=== PATIENT | male | born 1965 | race Caucasian/White ===

== ENCOUNTER 2018-06-27 19:06 | Inpatient (IN) | payer OTHER ==
[2018-06-27 21:12] VITALS: BMI 30.2
--- NOTE | 2018-06-27 23:12 | HP ---
CIWA Score Nausea/Vomitin-No Nausea/No Vomiting Muscle Tremors: 4-Moderate,w/Arms Extend Anxiety: 4-Mod. Anxious/Guarded Agitation: 1-Slight > Activity Paroxysmal Sweats: 3 (Increased facial moisture) Orientation: 1-Uncertain about Date Tacttile Disturbances: 0-None Auditory Disturbances: 0-None Visual Disturbances: 0-None Headache: 0-None Present CIWA-Ar Total Score: 13 - Admission Criteria OASAS Guidelines: Admission for Medically Managed Detox: Requires at least one of the followin. CIWA greater than 12 2. Seizures within the past 24 hours 3. Delirium tremens within the past 24 hours 4. Hallucinations within the past 24 hours 5. Acute intervention needed for co occurring medical disorder 6. Acute intervention needed for co occurring psychiatric disorder 7. Severe withdrawal that cannot be handled at a lower level of care (continued vomiting, continued diarrhea, abnormal vital signs) requiring intravenous medication and/or fluids 8. Patient presents the following: CIWA greater than 12 Admission Criteria Met: Admission criteria met Admission ROS [facility] Chief Complaint: Alcohol and Xanax withdrawal. Allergies/Adverse Reactions: Allergies Allergy/AdvReac Type Severity Reaction Status Date / Time No Known Allergies Allergy Verified 06/27/18 20:57 History of Present Illness: Hx poly-substance use. Here for alcohol and Xanax detox w/ co-morbid use of cocaine. Xanax use began at age 42. Was prescribed Klonopin and began taking illicit Xanax. Current Xanax consistently x 2 months. Alcohol use began at age 17. Current use since age 34. Heroin use began at age 34. On [facility]. Has been on [facility] x 1 year. Current Methadone dose is 75 mg. States relapses w heroin - 2 bags daily IV. States does not share needles or works. Nicotine use began at age 17. Hx: 2 overdoses. Last time 6 months ago. States was given Narcan. Does not have a Narcan Kit at home. Denies hx seizures or blackouts. PMHx: Hepatitis C - on medication treatment; Asthma - last exacerbation 1 year ago MHHx: Provider of Klonopin discharged him because urine positive for Xanax and cocaine. States feeling very anxious now. Depression Denies current thoughts of harming self or others. x Patient Name: Ty Garcia Date: 1965 Address: [address] [place] [address] Sex: Male Rx Written Rx Dispensed Drug Quantity Days Supply Prescriber Name 05/05/2018 05/05/2018 clonazepam 0.5 mg tablet 30 30 Reed Cedeno M 03/01/2018 03/01/2018 clonazepam 0.5 mg tablet 30 30 Reed Cedeno, Jose 01/20/2018 01/20/2018 clonazepam 0.5 mg tablet 30 30 Reed Cedeno, Jose 12/21/2017 12/21/2017 clonazepam 0.5 mg tablet 30 30 Tian Chantell SCOTTC 11/30/2017 11/30/2017 acetaminophen-cod #3 tablet 20 4 Rey Manzano 11/19/2017 11/19/2017 clonazepam 0.5 mg tablet 30 30 Tian Chantell SCOTTC 09/29/2017 09/29/2017 clonazepam 0.5 mg tablet 30 30 Tian Chantell LARES-C 08/31/2017 08/31/2017 clonazepam 1 mg tablet 30 30 Tian Chantell LARES-C 07/21/2017 07/21/2017 clonazepam 1 mg tablet 45 30 Delfina Portillo Exam Limitations: No Limitations - Ebola screening Have you traveled outside of the country in the last 21 days: No (N) Have you had contact with anyone from an Ebola affected area: No Have you been sick,other than usual withdrawal symptoms: No (Denies recent measles exposure) Do you have a fever: No - Review of Systems Constitutional: Diaphoresis, Changes in sleep (Difficulty falling asleep.) EENT: reports: Blurred Vision, Dental Problems (Dentures.) Respiratory: reports: Shortness of Breath Cardiac: reports: No Symptoms Reported GI: reports: Indigestion (Occ heart burn - self tx w/ pepto b) : reports: No Symptoms Reported Musculoskeletal: reports: Back Pain (LBP x 10 years. Intermittent, sharp, pins and needles - pain now @ a '7'. Increases w/ standing. Improves w/ laying on back.) Integumentary: reports: Lesions (r/t injection drug use) Neuro: reports: Tremors Endocrine: reports: No Symptoms Reported Hematology: reports: No Symptoms Reported Psychiatric: reports: Judgement Intact, Agitated, Anxious, Depressed (Denies curent thoughts of harming self or others.) Patient History - PPD History Previous Implant?: Yes Documented Results: Negative w/o proof Implanted On Prior R Admission?: Yes PPD to be Administered?: Yes - Smoking Cessation Smoking history: Current every day smoker Have you smoked in the past 12 months: Yes Aproximately how many cigarettes per day: 20 Hx Chewing Tobacco Use: No Initiated information on smoking cessation: Yes 'Breaking Loose' booklet given: 06/27/18 - Substance & Tx. History Hx Alcohol Use: Yes Hx Substance Use: Yes Substance Use Type: Alcohol, Cocaine, Heroin, Tranquilizers Hx Substance Use Treatment: Yes (detox, rehab, Currently on a MMTP) - Substances abused Heroin Substance route: Injection Frequency: Daily Amount used: $20 Age of first use: 34 Date of last use: 06/27/18 Alcohol Substance route: Oral Frequency: Daily Amount used: 6 CANS OF BEER (32 OUNCES) Age of first use: 17 Date of last use: 06/27/18 Cocaine Substance route: Injection Frequency: Daily Amount used: $100 Age of first use: 23 Date of last use: 06/27/18 Alprazolam (Xanax) Substance route: Oral Frequency: Daily Amount used: 3 STICKS (2mg each ) Age of first use: 34 Date of last use: 06/27/18 Admission Physical Exam BHS - Vital Signs Vital Signs: Vital Signs - 24 hr 06/27/18 21:03 Temperature 98.6 F Pulse Rate 68 Respiratory 20 Rate Blood Pressure 116/56 L - Physical General Appearance: Yes: Nourished, Mild Distress, Tremorous, Sweating, Anxious HEENTM: Yes: EOMI, Normocephalic, Normal Voice, MAYRA (Pupils = 2m) Respiratory: Yes: Lungs Clear, Normal Breath Sounds, No Respiratory Distress Neck: Yes: No masses,lesions,Nodules, Supple Breast: Yes: Breast Exam Deferred Cardiology: Yes: Regular Rhythm, Regular Rate, S1, S2 Abdominal: Yes: Non Tender, Soft, Increased Bowel Sounds Genitourinary: Yes: Within Normal Limits Back: Yes: Normal Inspection Musculoskeletal: Yes: full range of Motion, Gait Steady Extremities: Yes: Normal Capillary Refill, Tremors (gross tremors upon arm extension) Neurological: Yes: interim controller II-XII NML intact, Alert, Motor Strength 5/5, Depressed Affect (Denies curent thoughts of harming self or others.) Integumentary: Yes: Normal Color, Dry, Warm, Track Briones (Old and new trakc briones on arms.), Other (Superficial abrasion (L) arem area - approc) Lymphatic: Yes: Within Normal Limits - Diagnostic (1) Alcohol dependence with uncomplicated withdrawal Current Visit: Yes Status: Acute (2) Sedative, hypnotic or anxiolytic dependence with withdrawal, uncomplicated Current Visit: Yes Status: Acute (3) Cocaine dependence, uncomplicated Current Visit: Yes Status: Chronic (4) Opioid use disorder, severe, on maintenance therapy Current Visit: Yes Status: Chronic Comment: Continues to use heroin while on MMTP (5) Hepatitis C Current Visit: Yes Status: Acute Qualifiers: Viral hepatitis chronicity: chronic Hepatic coma status: without hepatic coma Qualified Code(s): B18.2 - Chronic viral hepatitis C Comment: On MAVYRET treatment (6) Abrasion of skin Current Visit: Yes Status: Chronic Cleared for Admission [facility] - Detox or Rehab [facility] Level of Care: Medically Managed Detox Regimen/Protocol: Librium Claeared for Rehab Admission: No Inpatient Rehab Admission - Rehab Decision to Admit Inpatient rehab admission?: No
[2018-06-27] MEDS ORDERED: guaiFENesin 200 MG/10 ML 10 ML UNIT-DOSE CUPS PO PRN (23:54)
[2018-06-27] MEDS ORDERED: METHOCARBAMOL 500 MG TABLET PO PRN (23:54)
[2018-06-27] MEDS ORDERED: PROCHLORPERAZINE MALEATE 5 MG TABLET PO PRN (23:54)
[2018-06-27] MEDS ORDERED: BISMUTH SUBSALICYLATE 524 MG/30 ML UD PO PRN (23:54)
[2018-06-27] MEDS ORDERED: MAGNESIUM CITRATE 300 ML BOTTLE PO PRN (23:54)
[2018-06-27] MEDS ORDERED: hydrOXYzine PAMOATE 25 MG CAPSULE (FP) PO PRN (23:54)
[2018-06-27] MEDS ORDERED: NICOTINE POLACRILEX 2 MG GUM BUC PRN (23:54)
[2018-06-27] MEDS ORDERED: IBUPROFEN 400 MG TABLET (FP) PO PRN (23:54)
[2018-06-27] MEDS ORDERED: P-EPHED 60MG/TRIPROLIDI 2.5MG TABLET PO PRN (23:54)
[2018-06-27] MEDS ORDERED: MENTHOL/PHENOL 1 EACH UD MM PRN (23:54)
[2018-06-27] MEDS ORDERED: ACETAMINOPHEN 325 MG TABLET (FP) PO PRN ×2 (23:54)
[2018-06-27] MEDS ORDERED: MAGNESIUM HYDROX 2400MG/30ML ORAL SUSPENSION 30 ML CUP PO PRN (23:54)
[2018-06-27] MEDS ORDERED: MAG HYDROX/AL HYDROX/SIMETH 30 ML UNIT-DOSE CUP PO PRN (23:54)
[2018-06-28] MEDS ORDERED: ALBUTEROL SO4 0.083% IH SOL 2.5 MG/3 ML VIAL.NEB. NEB PRN (00:04)
[2018-06-28] MEDS ORDERED: chlordiazePOXIDE HCL 25 MG CAPSULE PO PRN (00:45)
[2018-06-28] MEDS ORDERED: chlordiazePOXIDE HCL 25 MG CAPSULE PO ONE (00:45)
[2018-06-28] MEDS: MELATONIN 5 MG TABLETS PO PRN (01:03)
[2018-06-28] MEDS: chlordiazePOXIDE HCL 25 MG CAPSULE PO SCH ×4 (06:05→22:26)
[2018-06-28] MEDS ORDERED: METHADONE HCL 10 MG TABLET PO SCH (07:15)
[2018-06-28] MEDS ORDERED: METHADONE HCL 10 MG TABLET ONE (08:26)
[2018-06-28] MEDS ORDERED: METHADONE HCL 40 MG DISPERSABLE TABLET ONE (08:27)
[2018-06-28] MEDS ORDERED: METHADONE HCL 5 MG TABLET ONE (08:27)
[2018-06-28] MEDS: METHADONE 40 MG, METHADONE 30 MG, METHADONE 5 MG PO SCH (08:30)
--- NOTE | 2018-06-28 09:33 | CONSULT ---
[facility] Psychiatric Consult - Data Date of interview: 06/28/18 Admission source: [facility] Identifying data: Patient is a 53 year old single male, father of one, unemployed, domiciled, and is supported by disability. This is patient's first admission to detox at [facility]. Patient admitted to for alcohol, sedative, opioid, and cocaine dependence. Substance Abuse History: Smoking Cessation. Smoking history: Current every day smoker. Have you smoked in the past 12 months: Yes. Aproximately how many cigarettes per day: 20. Hx Chewing Tobacco Use: No. Initiated information on smoking cessation: Yes. 'Breaking Loose' booklet given: 06/27/18. - Substance & Tx. History. Hx Alcohol Use: Yes. Hx Substance Use: Yes. Substance Use Type : Alcohol, Cocaine, Heroin, Tranquilizers. Hx Substance Use Treatment: Yes ( detox, rehab, Currently on a MMTP). - Substances abused. Heroin. Substance route: Injection. Frequency: Daily. Amount used: $20. Age of first use: 34. Date of last use: 06/27/18. Alcohol. Substance route: Oral. Frequency: Daily. Amount used: 6 CANS OF BEER (32 OUNCES). Age of first use: 17. Date of last use: 06/27/18. Cocaine. Substance route: Injection. Frequency: Daily. Amount used: $100. Age of first use: 23. Date of last use: 06/27/18. Alprazolam (Xanax). Substance route: Oral. Frequency: Daily. Amount used: 3 STICKS (2mg each ). Age of first use: 34. Date of last use: 08/10 Medical History: Significant for Hep C and Asthma Psychiatric History: Patient denies h/o psychiatric hospitalization, outpatient care, and suicide attempt. Mr. Garcia reports seeing an outpatient psychiatrist at the [facility] on [address] [place] [address] and is prescribed trazodone and other psychotropic medication he is unable to call. He reports being off his medications for approximately 1-2 months. At present, Mr. Garcia presents as fatigue as he reports difficulty sleeping last night. Physical/Sexual Abuse/Trauma History: denies. Mental Status Exam - Mental Status Exam Alert and Oriented to: Time, Place, Person Cognitive Function: Good Patient Appearance: Well Groomed Mood: Withdrawn Affect: Mood Congruent Patient Behavior: Fatigued Speech Pattern: Delayed Voice Loudness: Moderately Soft/Quiet Thought Process: Goal Oriented Thought Disorder: Not Present Hallucinations: Denies Suicidal Ideation: Denies Homicidal Ideation: Denies Insight/Judgement: Poor Sleep: Poorly Appetite: Fair Muscle strength/Tone: Normal Gait/Station: Normal Psychiatric Findings - Problem List ([place] 1, 2,3) (1) Substance-induced sleep disorder Current Visit: Yes Status: Acute (2) Alcohol dependence with uncomplicated withdrawal Current Visit: Yes Status: Acute (3) Sedative, hypnotic or anxiolytic dependence with withdrawal, uncomplicated Current Visit: Yes Status: Acute (4) Cocaine dependence, uncomplicated Current Visit: Yes Status: Chronic (5) Opioid use disorder, severe, on maintenance therapy Current Visit: Yes Status: Chronic Comment: Continues to use heroin while on MMTP - Initial Treatment Plan Initial Treatment Plan: Psychoeducation provided. Detoxification in progress. Will order Trazodone 50mg HS. Benefits and side effects discussed. Patient made aware of the risk of priapism. Verbal consent given.
[2018-06-28 10:16] LABS: HEMATOCRIT 33.9 % (35.4-49); HEMOGLOBIN 11.4 GM/dL (11.7-16.9); MCH 29.2 pg (25.7-33.7); MCHC 33.6 g/dl (32.0-35.9); PLATELET COUNT 174 K/MM3 (134-434); RBC 3.89 M/mm3 (4.00-5.60); RDW 13.9 % (11.9-15.9); WHITE BLOOD COUNT 6.3 K/mm3 (4.0-10.0)
[2018-06-28 10:18] LABS: ALK PHOS 100 U/L (45-117); ANION GAP 4 MMOL/L (8-16); BILIRUBIN,TOTAL 0.2 mg/dL (0.2-1); BLOOD UREA NITROGEN 15 mg/dL (7-18); CALCIUM 8.7 mg/dL (8.5-10.1); CHLORIDE 107 mmol/L (98-107); CO2 28 mmol/L (21-32); CREATININE 0.8 mg/dL (0.55-1.3); GLUCOSE,RANDOM 104 mg/dL (74-106); POTASSIUM 3.7 mmol/L (3.5-5.1); SGOT/AST 22 U/L (15-37); SGPT/ALT 27 U/L (13-61); SODIUM 140 mmol/L (136-145); TOT PROT 6.3 g/dl (6.4-8.2)
[2018-06-28] MEDS: PATIENT'S OWN MEDICATION (NON-FORMULARY) (Glecaprevir/Pibrentasvir [Mavyret 100-40 Mg Tabl PO SCH (10:32)
[2018-06-28] MEDS: PRENATAL VITAMINS W/ FOLIC ACID TABLET (FP) PO SCH (10:34)
[2018-06-28] MEDS: BACITRACIN 0.9 GM PACKET TP SCH ×2 (10:34→22:26)
[2018-06-28] MEDS: NICOTINE 21 MG/24 HOURS TOPICAL PATCH TD SCH (10:34)
--- NOTE | 2018-06-28 10:35 | PN ---
[facility] CIWA - CIWA Score Nausea/Vomitin-Mild Nausea/No Vomiting Muscle Tremors: 3 Anxiety: 3 Agitation: 2 Paroxysmal Sweats: 1-Minimal Palms Moist Orientation: 0-Oriented Tacttile Disturbances: 0-None Auditory Disturbances: 0-None Visual Disturbances: 0-None Headache: 0-None Present CIWA-Ar Total Score: 10 S Progress Note (SOAP) Subjective: doing well with librium protocol tremor tolerate food and fluid well Objective: 06/28/18 10:35 Vital Signs Temperature 97.1 F L 06/28/18 09:15 Pulse Rate 65 06/28/18 09:15 Respiratory Rate 20 06/28/18 09:15 Blood Pressure 105/69 06/28/18 09:15 O2 Sat by Pulse Oximetry (%) Laboratory Last Values Sodium 140 mmol/L (136-145) 06/28/18 07:00 Potassium 3.7 mmol/L (3.5-5.1) 06/28/18 07:00 Chloride 107 mmol/L (98-107) 06/28/18 07:00 Carbon Dioxide 28 mmol/L (21-32) 06/28/18 07:00 Anion Gap 4 MMOL/L (8-16) L 06/28/18 07:00 BUN 15 mg/dL (7-18) 06/28/18 07:00 Creatinine 0.8 mg/dL (0.55-1.3) 06/28/18 07:00 Creat Clearance w eGFR 101.92 (>60) 06/28/18 07:00 Random Glucose 104 mg/dL (74-106) 06/28/18 07:00 Calcium 8.7 mg/dL (8.5-10.1) 06/28/18 07:00 Total Bilirubin 0.2 mg/dL (0.2-1) 06/28/18 07:00 AST 22 U/L (15-37) 06/28/18 07:00 ALT 27 U/L (13-61) 06/28/18 07:00 Alkaline Phosphatase 100 U/L (45-117) 06/28/18 07:00 Total Protein 6.3 g/dl (6.4-8.2) L 06/28/18 07:00 Albumin 3.0 g/dl (3.4-5.0) L 06/28/18 07:00 lab noted Assessment: 06/28/18 10:36 alcohol and benzo withdrawal sx Plan: continue detox
[2018-06-28 20:21] LABS: URINE APPEARANCE CLEAR; URINE BILIRUBIN NEGATIVE (NEGATIVE); URINE COLOR YELLOW; URINE GLUCOSE (UA) NEGATIVE (NEGATIVE); URINE KETONE NEGATIVE (NEGATIVE); URINE LEUK ESTERASE NEGATIVE (NEGATIVE); URINE NITRITE NEGATIVE (NEGATIVE); URINE PROTEIN NEGATIVE (NEGATIVE); URINE UROBILINOGEN 0.2 mg/dL (0.2-1.0)
[2018-06-28] MEDS: THIAMINE HCL 100 MG TABLET (FP) PO SCH (22:26)
[2018-06-28] MEDS: traZODone HCL 50 MG TABLET (FP) PO SCH (22:27)
[2018-06-29] MEDS ORDERED: METHADONE HCL 10 MG TABLET ONE (04:31)
[2018-06-29] MEDS ORDERED: METHADONE HCL 5 MG TABLET ONE (04:32)
[2018-06-29] MEDS ORDERED: METHADONE HCL 40 MG DISPERSABLE TABLET ONE (04:32)
[2018-06-29] MEDS: chlordiazePOXIDE HCL 25 MG CAPSULE PO SCH ×4 (05:23→22:19)
[2018-06-29] MEDS: METHADONE 40 MG, METHADONE 30 MG, METHADONE 5 MG PO SCH (05:23)
[2018-06-29] MEDS: BACITRACIN 0.9 GM PACKET TP SCH ×2 (10:31→22:19)
[2018-06-29] MEDS: PRENATAL VITAMINS W/ FOLIC ACID TABLET (FP) PO SCH (10:32)
[2018-06-29] MEDS: NICOTINE 21 MG/24 HOURS TOPICAL PATCH TD SCH (10:32)
[2018-06-29] MEDS: PATIENT'S OWN MEDICATION (NON-FORMULARY) (Glecaprevir/Pibrentasvir [Mavyret 100-40 Mg Tabl PO SCH (10:32)
[2018-06-29 12:27] LABS: RPR REACTIVE 1:4 (NONREACTIVE)
--- NOTE | 2018-06-29 14:06 | PN ---
S CIWA - CIWA Score Nausea/Vomitin-No Nausea/No Vomiting Muscle Tremors: 2 Anxiety: 2 Agitation: 2 Paroxysmal Sweats: No Perspiration Orientation: 0-Oriented Tacttile Disturbances: 0-None Auditory Disturbances: 0-None Visual Disturbances: 0-None Headache: 0-None Present CIWA-Ar Total Score: 6 BHS Progress Note (SOAP) Subjective: feeling better today ambulating on hallway discuss aftercare with staff Objective: 06/29/18 14:07 Vital Signs Temperature 98.5 F 06/29/18 13:49 Pulse Rate 58 L 06/29/18 13:49 Respiratory Rate 18 06/29/18 13:49 Blood Pressure 102/61 06/29/18 13:49 O2 Sat by Pulse Oximetry (%) Laboratory Last Values WBC 6.3 K/mm3 (4.0-10.0) 06/28/18 07:00 RBC 3.89 M/mm3 (4.00-5.60) L 06/28/18 07:00 Hgb 11.4 GM/dL (11.7-16.9) L 06/28/18 07:00 Hct 33.9 % (35.4-49) L 06/28/18 07:00 MCV 87.0 fl (80-96) 06/28/18 07:00 MCH 29.2 pg (25.7-33.7) 06/28/18 07:00 MCHC 33.6 g/dl (32.0-35.9) 06/28/18 07:00 RDW 13.9 % (11.9-15.9) 06/28/18 07:00 Plt Count 174 K/MM3 (134-434) 06/28/18 07:00 MPV 9.0 fl (7.5-11.1) 06/28/18 07:00 Sodium 140 mmol/L (136-145) 06/28/18 07:00 Potassium 3.7 mmol/L (3.5-5.1) 06/28/18 07:00 Chloride 107 mmol/L (98-107) 06/28/18 07:00 Carbon Dioxide 28 mmol/L (21-32) 06/28/18 07:00 Anion Gap 4 MMOL/L (8-16) L 06/28/18 07:00 BUN 15 mg/dL (7-18) 06/28/18 07:00 Creatinine 0.8 mg/dL (0.55-1.3) 06/28/18 07:00 Creat Clearance w eGFR 101.92 (>60) 06/28/18 07:00 Random Glucose 104 mg/dL (74-106) 06/28/18 07:00 Calcium 8.7 mg/dL (8.5-10.1) 06/28/18 07:00 Total Bilirubin 0.2 mg/dL (0.2-1) 06/28/18 07:00 AST 22 U/L (15-37) 06/28/18 07:00 ALT 27 U/L (13-61) 06/28/18 07:00 Alkaline Phosphatase 100 U/L (45-117) 06/28/18 07:00 Total Protein 6.3 g/dl (6.4-8.2) L 06/28/18 07:00 Albumin 3.0 g/dl (3.4-5.0) L 06/28/18 07:00 Urine Color Yellow 06/28/18 13:15 Urine Appearance Clear 06/28/18 13:15 Urine pH 6.0 (5.0-8.0) 06/28/18 13:15 Ur Specific [place] 1.019 (1.010-1.035) 06/28/18 13:15 Urine Protein Negative (NEGATIVE) 06/28/18 13:15 Urine Glucose (UA) Negative (NEGATIVE) 06/28/18 13:15 Urine Ketones Negative (NEGATIVE) 06/28/18 13:15 Urine Blood Negative (NEGATIVE) 06/28/18 13:15 Urine Nitrite Negative (NEGATIVE) 06/28/18 13:15 Urine Bilirubin Negative (NEGATIVE) 06/28/18 13:15 Urine Urobilinogen 0.2 mg/dL (0.2-1.0) 06/28/18 13:15 Ur Leukocyte Esterase Negative (NEGATIVE) 06/28/18 13:15 RPR Titer Reactive 1:4 (NONREACTIVE) H 06/28/18 07:00 lab noted history of syphilis treated 06/29/18 14:08 Assessment: 06/29/18 14:08 withdrawal sx Plan: continue detox
[2018-06-29 15:07] LABS: TREPONEMA ANTIBODY REACTIVE (NONREACTIVE)
[2018-06-29] MEDS: THIAMINE HCL 100 MG TABLET (FP) PO SCH (22:19)
[2018-06-29] MEDS: traZODone HCL 50 MG TABLET (FP) PO SCH (22:19)
[2018-06-29] MEDS: MELATONIN 5 MG TABLETS PO PRN (22:20)
[2018-06-30] MEDS ORDERED: chlordiazePOXIDE HCL 10 MG CAPSULE PO PRN (05:00)
[2018-06-30] MEDS ORDERED: METHADONE HCL 40 MG DISPERSABLE TABLET ONE (05:29)
[2018-06-30] MEDS ORDERED: METHADONE HCL 5 MG TABLET ONE (05:29)
[2018-06-30] MEDS ORDERED: METHADONE HCL 10 MG TABLET ONE (05:29)
[2018-06-30] MEDS: METHADONE 40 MG, METHADONE 30 MG, METHADONE 5 MG PO SCH (05:30)
[2018-06-30] MEDS: chlordiazePOXIDE HCL 10 MG CAPSULE PO SCH ×2 (05:30→10:52)
--- NOTE | 2018-06-30 08:40 | DS ---
[facility] Detox Discharge Summary Admission Date: 06/27/18 Discharge Date: 06/30/18 - History Present History: Alcohol Dependence, Sedative Dependence Additional Comments: 53 years old male admitted on 06/27/18 for alcohol and benzo withdrawal stabilization feeling better today preferring to begin rehab today aftercare [facility] - Physical Exam Results Vital Signs: Vital Signs Temperature 99 F 06/30/18 06:27 Pulse Rate 63 06/30/18 06:27 Respiratory Rate 16 06/30/18 06:27 Blood Pressure 97/64 06/30/18 06:27 O2 Sat by Pulse Oximetry (%) Pertinent Admission Physical Exam Findings: alcohol and benzo withdrawal sx Laboratory Last Values WBC 6.3 K/mm3 (4.0-10.0) 06/28/18 07:00 RBC 3.89 M/mm3 (4.00-5.60) L 06/28/18 07:00 Hgb 11.4 GM/dL (11.7-16.9) L 06/28/18 07:00 Hct 33.9 % (35.4-49) L 06/28/18 07:00 MCV 87.0 fl (80-96) 06/28/18 07:00 MCH 29.2 pg (25.7-33.7) 06/28/18 07:00 MCHC 33.6 g/dl (32.0-35.9) 06/28/18 07:00 RDW 13.9 % (11.9-15.9) 06/28/18 07:00 Plt Count 174 K/MM3 (134-434) 06/28/18 07:00 MPV 9.0 fl (7.5-11.1) 06/28/18 07:00 Sodium 140 mmol/L (136-145) 06/28/18 07:00 Potassium 3.7 mmol/L (3.5-5.1) 06/28/18 07:00 Chloride 107 mmol/L (98-107) 06/28/18 07:00 Carbon Dioxide 28 mmol/L (21-32) 06/28/18 07:00 Anion Gap 4 MMOL/L (8-16) L 06/28/18 07:00 BUN 15 mg/dL (7-18) 06/28/18 07:00 Creatinine 0.8 mg/dL (0.55-1.3) 06/28/18 07:00 Creat Clearance w eGFR 101.92 (>60) 06/28/18 07:00 Est GFR (CKD-EPI)AfAm No Result Required. 06/28/18 07:00 Est GFR (CKD-EPI)NonAf No Result Required. 06/28/18 07:00 Random Glucose 104 mg/dL (74-106) 06/28/18 07:00 Calcium 8.7 mg/dL (8.5-10.1) 06/28/18 07:00 Total Bilirubin 0.2 mg/dL (0.2-1) 06/28/18 07:00 AST 22 U/L (15-37) 06/28/18 07:00 ALT 27 U/L (13-61) 06/28/18 07:00 Alkaline Phosphatase 100 U/L (45-117) 06/28/18 07:00 Total Protein 6.3 g/dl (6.4-8.2) L 06/28/18 07:00 Albumin 3.0 g/dl (3.4-5.0) L 06/28/18 07:00 Urine Color Yellow 06/28/18 13:15 Urine Appearance Clear 06/28/18 13:15 Urine pH 6.0 (5.0-8.0) 06/28/18 13:15 Ur Specific [place] 1.019 (1.010-1.035) 06/28/18 13:15 Urine Protein Negative (NEGATIVE) 06/28/18 13:15 Urine Glucose (UA) Negative (NEGATIVE) 06/28/18 13:15 Urine Ketones Negative (NEGATIVE) 06/28/18 13:15 Urine Blood Negative (NEGATIVE) 06/28/18 13:15 Urine Nitrite Negative (NEGATIVE) 06/28/18 13:15 Urine Bilirubin Negative (NEGATIVE) 06/28/18 13:15 Urine Urobilinogen 0.2 mg/dL (0.2-1.0) 06/28/18 13:15 Ur Leukocyte Esterase Negative (NEGATIVE) 06/28/18 13:15 RPR Titer Reactive 1:4 (NONREACTIVE) H 06/28/18 07:00 T.pallidum Ab (MHA) Reactive (NONREACTIVE) 06/28/18 07:00 lab noted history of syphilis treated - Treatment Hospital Course: Detox Protocol Followed, Detoxed Safely, Responded well, Discharged Condition Good, Rehab Referral Accepted Patient has Accepted a Rehab Referral to: [facility] - Medication Discharge Medications: Ambulatory Orders Glecaprevir/Pibrentasvir [Mavyret 100-40 mg Tablet] 3 tab PO DAILY 06/27/18 Trazodone HCl 50 mg PO HS 06/27/18 - Diagnosis (1) Alcohol dependence with uncomplicated withdrawal Current Visit: Yes Status: Acute (2) Hepatitis C Current Visit: Yes Status: Chronic Qualifiers: Viral hepatitis chronicity: chronic Hepatic coma status: without hepatic coma Qualified Code(s): B18.2 - Chronic viral hepatitis C (3) Sedative, hypnotic or anxiolytic dependence with withdrawal, uncomplicated Current Visit: Yes Status: Acute (4) Syphilis Current Visit: Yes Status: Chronic - AMA Did Patient Leave Against Medical Advice: No
[2018-06-30] MEDS: BACITRACIN 0.9 GM PACKET TP SCH (10:07)
[2018-06-30] MEDS: PATIENT'S OWN MEDICATION (NON-FORMULARY) (Glecaprevir/Pibrentasvir [Mavyret 100-40 Mg Tabl PO SCH (10:08)
[2018-06-30] MEDS: PRENATAL VITAMINS W/ FOLIC ACID TABLET (FP) PO SCH (10:08)
[2018-06-30] MEDS: NICOTINE 21 MG/24 HOURS TOPICAL PATCH TD SCH (10:08)
[2018-06-30 14:09] VITALS: BP 102/57; PULSE 60; TEMP 98.4
[2018-07-01] MEDS ORDERED: chlordiazePOXIDE HCL 10 MG CAPSULE PO SCH (05:00)
== END 2018-06-30 15:18 | disposition other institution (70) | DRG 897 ==
LOC: YASAS 19:06 → Y3N 23:12
PROVIDERS: ADMIT Surgery; ATTEND Surgery
PROC: HZ2ZZZZ Detoxification Services for Substance Abuse Treatment (ICD-10-PCS; principal; 2018-06-27)
DX: F10.230 Alcohol dependence with withdrawal, uncomplicated (principal); F14.20 Cocaine dependence, uncomplicated; F11.20 Opioid dependence, uncomplicated; F19.282 Other psychoactive substance dependence with psychoactive substance-induced sleep disorder; F13.230 Sedative, hypnotic or anxiolytic dependence with withdrawal, uncomplicated; A53.9 Syphilis, unspecified; B18.2 Chronic viral hepatitis C; Z87.09 Personal history of other diseases of the respiratory system; S50.812A Abrasion of left forearm, initial encounter; X58.XXXA Exposure to other specified factors, initial encounter; Y93.9 Activity, unspecified; Y92.89 Other specified places as the place of occurrence of the external cause; Y99.8 Other external cause status
CPT/HCPCS: 36415; 80053; 81003; 85027; 86593; 86780

== ENCOUNTER 2018-06-30 15:34 | Inpatient (IN) | payer OTHER ==
--- NOTE | 2018-06-30 13:39 | HP ---
[facility] Rehab Assess/Revision - Admission History Admitted to Rehab from: [facility] Date of Admission to Rehab: 06/30/18 - Findings Detox History & Physical reviewed: Yes Concur with findings: Yes Comments/Additional Findings: transferred from detox to rehab admission as per protocol Inpatient Rehab Admission - Rehab Decision to Admit Inpatient rehab admission?: Yes - Initial Determination Are CD services needed?: Yes Free of communicable disease: Yes Not in need of hospitalization: Yes - Rehab Admission Criteria Previous failed treatment: Yes Poor recovery environment: Yes Comorbidities: Yes Lacks judgement: No Patient is meeting Inpatient Rehab admission criteria:: Yes
[~2018-06-30 15:34] MED LIST: ACETAMINOPHEN 325 MG TABLET (FP) PO PRN; IBUPROFEN 400 MG TABLET (FP) PO PRN; LOPERAMIDE HCL 2 MG CAPSULE PO PRN; MAG HYDROX/AL HYDROX/SIMETH 30 ML UNIT-DOSE CUP PO PRN; MAGNESIUM CITRATE 300 ML BOTTLE PO PRN; MAGNESIUM HYDROX 2400MG/30ML ORAL SUSPENSION 30 ML CUP PO PRN; MENTHOL/PHENOL 1 EACH UD MM PRN; NICOTINE 14 MG/24 HOURS TOPICAL PATCH TD PRN; NICOTINE POLACRILEX 2 MG GUM BC PRN; P-EPHED 60MG/TRIPROLIDI 2.5MG TABLET PO PRN; guaiFENesin 200 MG/10 ML 10 ML UNIT-DOSE CUPS PO PRN
[2018-06-30] MEDS ORDERED: traZODone HCL 50 MG TABLET (FP) PO SCH (22:00)
[2018-06-30] MEDS ORDERED: MELATONIN 5 MG TABLETS PO PRN (22:00)
[2018-06-30] MEDS ORDERED: THIAMINE HCL 100 MG TABLET (FP) PO SCH (22:00)
[2018-07-01] MEDS ORDERED: METHADONE HCL 5 MG TABLET ONE (05:53)
[2018-07-01] MEDS ORDERED: METHADONE HCL 40 MG DISPERSABLE TABLET ONE (05:54)
[2018-07-01] MEDS ORDERED: METHADONE HCL 10 MG TABLET ONE (05:54)
[2018-07-01] MEDS ORDERED: METHADONE HCL 10 MG TABLET PO SCH (06:00)
[2018-07-01] MEDS ORDERED: METHADONE 40 MG, METHADONE 30 MG, METHADONE 5 MG PO SCH (06:00)
[2018-07-01] MEDS ORDERED: TUBERCULIN PPD 5 TU/0.1ML VIAL ID ONE (07:05)
[2018-07-01 07:27] VITALS: BP 99/59; TEMP 98.2
[2018-07-01] MEDS ORDERED: PATIENT'S OWN MEDICATION (NON-FORMULARY) (Glecaprevir/Pibrentasvir [Mavyret 100-40 Mg Tabl PO SCH (10:00)
[2018-07-01] MEDS ORDERED: PRENATAL VITAMINS W/ FOLIC ACID TABLET (FP) PO SCH (10:00)
[2018-07-01] MEDS ORDERED: ALBUTEROL SO4 8 GM HFA INHALER IH PRN ×2 (12:39→12:45)
--- NOTE | 2018-07-01 12:39 | PN ---
[facility] Progress Note Note: NEW ADMIT TO REHAB ON 06/30/18 FROM [facility](06/27/18 TO 06/30/18) WHO REPORTS COUGHING AND ROBITUSSIN WAS GIVEN. PT REPORTS HX OF ASTHMA AND USES ALBUTEROL AT HOME. Vital Signs 07/01/18 07:25 Temperature 98.2 F Pulse Rate 75 Respiratory 18 Rate Blood Pressure 99/59 L HEAD:NORMOCEPHALIC; MMM, (-)REDNESS OR SWELLING CARDIAC: S1 S2 RRR, (-)MM LUNGS:MILD WHEEZING WITH SCATTERED RHONCHI BILATERALLY. SKIN:WARM AND MOIST EXT:NO EDEMA/C/C A:ASTHMA, MILD EXACERBATION PLAN:ALBUTEROL INHALER PRN DIRECTED DUONEB NEBULIZER DIRECTED. ROBITUSSIN DIRECTED.
[2018-07-01] MEDS ORDERED: ALBUTEROL SO4 2.5/IPRATROPIUM 0.5 INH SOL 3 ML VIAL.NEB. NEB PRN (12:46)
[2018-07-01] MEDS ORDERED: ALBUTEROL SO4 2.5/IPRATROPIUM 0.5 INH SOL 3 ML VIAL.NEB. NEB ONE (12:47)
[2018-07-01 14:38] VITALS: PULSE 62
[2018-07-01] MEDS ORDERED: ALBUTEROL SO4 2.5/IPRATROPIUM 0.5 INH SOL 3 ML VIAL.NEB. NEB SCH ×2 (16:00)
--- NOTE | 2018-07-01 20:39 | PN ---
[facility] Progress Note Note: States wants to go home. "This place is not for me" Leaving AMA despite encouragement. Was admitted to rehab after detox for alcohol and Xanax. Hx current cocaine use disorder and Nicotine use disorder Hx Heroin use disorder began at age 34. Currently on [facility]. Will return to MMTP program. PMHx: Hepatitis C; Asthma MHHx:Depression Denies current thoughts of harming self or others. Patient left alert and oriented. Steady gait.
== END 2018-07-01 17:45 | disposition left against medical advice (07) | DRG 894 ==
LOC: YASAS 15:34 → Y5N 15:37
PROVIDERS: ADMIT Neuromusculoskeletal Medicine & OMM; ATTEND Neuromusculoskeletal Medicine & OMM
PROC: HZ42ZZZ Group Counseling for Substance Abuse Treatment, Cognitive-Behavioral (ICD-10-PCS; principal; 2018-06-30)
DX: F11.20 Opioid dependence, uncomplicated (principal); F13.20 Sedative, hypnotic or anxiolytic dependence, uncomplicated; F14.20 Cocaine dependence, uncomplicated; J45.901 Unspecified asthma with (acute) exacerbation; F17.210 Nicotine dependence, cigarettes, uncomplicated; B18.2 Chronic viral hepatitis C
CPT/HCPCS: 94640

== ENCOUNTER 2018-07-16 09:26 | Inpatient (IN) | payer OTHER | END 2018-07-18 20:27 | disposition left against medical advice (07) | LOC: YASAS 09:26 → Y6N 11:31 ==

== ENCOUNTER 2019-10-08 12:29 | Inpatient (IN) | payer OTHER ==
--- NOTE | 2019-10-08 13:47 | BHS.RME ---
Substance Use & Tx History - Substance Use History Alcohol Substance amount: 1 pint of bacardi/6 packs of 16 ozs of beer Frequency of use: Daily Date of Last Use: 10/07/19 Cocaine- Powder Substance amount: 50$ Frequency of use: Daily Substance route: Injection (ex: intravenous or skin popping) Date of Last Use: 10/07/19 Heroin Substance amount: 4 bags Frequency of use: Daily Substance route: Injection (ex: intravenous or skin popping) Date of Last Use: 10/07/19 Xanax Substance amount: 6 mgs Frequency of use: Daily Substance route: Oral Date of Last Use: 10/06/19 - Last Treatment Date of last treatment: [facility] 05/05/19 to 05/10/19 Where was last treatment: Detox Physical/Psych/Mental Status - Behavior Eye Contact: Normal - Cooperativeness Cooperativeness: Cooperative - Thinking Thought Processes: Logical Thought content: Future oriented - Physical Health Problems Is patient presently having any pain?: No Does patient presently have any injuries (include location): No Does patient currently have a fever: No CIWA Nausea/Vomitin Muscle Tremors: 3 Anxiety: 3 Agitation: 3 Paroxysmal Sweats: 1-Minimal Palms Moist Orientation: 0-Oriented Tacttile Disturbances: 0-None Auditory Disturbances: 0-None Visual Disturbances: 0-None Headache: 2-Mild CIWA-Ar Total Score: 15
--- NOTE | 2019-10-08 13:56 | HP ---
CIWA Score Nausea/Vomitin Muscle Tremors: 3 Anxiety: 3 Agitation: 3 Paroxysmal Sweats: 1-Minimal Palms Moist Orientation: 0-Oriented Tacttile Disturbances: 0-None Auditory Disturbances: 0-None Visual Disturbances: 0-None Headache: 2-Mild CIWA-Ar Total Score: 15 - Admission Criteria OASAS Guidelines: Admission for Medically Managed Detox: Requires at least one of the followin. CIWA greater than 12 2. Seizures within the past 24 hours 3. Delirium tremens within the past 24 hours 4. Hallucinations within the past 24 hours 5. Acute intervention needed for co occurring medical disorder 6. Acute intervention needed for co occurring psychiatric disorder 7. Severe withdrawal that cannot be handled at a lower level of care (continued vomiting, continued diarrhea, abnormal vital signs) requiring intravenous medication and/or fluids 8. Admitting History and Physical - Admission Chief Complaint: i need help to stop dinking alcohol and drugs History of Present Illness: this 54 years old male with alcohil dependence,heroin abused,xanax dependence ,cocaine abused,seeking help to stop, mmtp 100 mgs/day,last taken 10/07/19,did not know what happen to the take home bottle History Source: Patient Limitations to Obtaining History: No Limitations - Past Medical History Pulmonary: Yes: Asthma Hepatobiliary: Yes: Hepatitis C Psych: Yes: Anxiety, Depression Musculoskeletal: Yes: Chronic low back pain ENT: Yes: Other (throat cancer treated with radiation and chemotherapy sine 03/2009 treateted at [facility],on remission) - Smoking History Smoking history: Current every day smoker Have you smoked in the past 12 months: Yes Aproximately how many cigarettes per day: 3 - Alcohol/Substance Use Hx Alcohol Use: Yes History of Substance Use: reports: Cocaine, Heroin - Social History Usual Living Arrangement: Yes: Alone Do you think of yourself as: Straight/Heterosexual ADL: Support Services Occupation: on disabilty History of Recent Travel: No Other Social History: nicotine dependence,cancer of throat on remission,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 Admission ROS S - HPI Chief Complaint: i need help to stop drinking alcohol,xanax,cocaine dependence,heroin abused and mmtp 100 mgs/day Allergies/Adverse Reactions: Allergies Allergy/AdvReac Type Severity Reaction Status Date / Time No Known Allergies Allergy Verified 05/11/19 11:44 History of Present Illness: this 54 years old male with alcohol,cocaine,xanax,dependence,heroin abused,mmtp 100 mgs/day,last medicated yesterday withdrawal symptom denied seizure,denied syncope history of cancer of throat s/p radiation and chemotherapy on remission treated at [facility] 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 Loss EENT: reports: Nose Congestion Respiratory: reports: No Symptoms reported, Other (asthma) Cardiac: reports: No Symptoms Reported GI: reports: Nausea, Poor Appetite, Abdominal cramping : reports: No Symptoms Reported Musculoskeletal: reports: Back Pain, Muscle Pain Integumentary: reports: Dryness Neuro: reports: Headache, Tremors Endocrine: reports: No Symptoms Reported Hematology: reports: No Symptoms Reported Psychiatric: reports: No Sypmtoms Reported, Judgement Intact, Mood/Affect Appropiate, Orientated x3, Anxious, Depressed Other Systems: Reviewed and Negative Patient History - Patient Medical History Hx Anemia: No Hx Asthma: Yes Hx Chronic Obstructive Pulmonary Disease (COPD): No Hx Cancer: Yes (throat post radiation and chemotherapy) Hx Cardiac Disorders: No Hx Congestive Heart Failure: No Hx Hypertension: No Hx Hypercholesterolemia: No Hx Pacemaker: No HX Cerebrovascular Accident: No Hx Seizures: No Hx Diabetes: No Hx Gastrointestinal Disorders: Yes (gerd) Hx Liver Disease: Yes (hepatitis c treated) Hx Genitourinary Disorders: No Hx Sexually Transmitted Disorders: No Hx Renal Disease (ESRD): No Hx Thyroid Disease: No Hx Human Immunodeficiency Virus (HIV): No ([id number] negative) Hx Hepatitis C: Yes (treated with harvoni) Hx Depression: Yes Hx Suicide Attempt: No Hx Bipolar Disorder: No Hx Schizophrenia: No Other Medical History: no suicdal,nohomicidal - Patient Surgical History Past Surgical History: No Hx Neurologic Surgery: No Hx Cataract Extraction: No Hx Cardiac Surgery: No Hx Lung Surgery: No Hx Breast Surgery: No Hx Breast Biopsy: No Hx Abdominal Surgery: No Hx Appendectomy: No Hx Cholecystectomy: No Hx Genitourinary Surgery: No Hx Section: No Hx Orthopedic Surgery: No Anesthesia Reaction: No - PPD History Previous Implant?: Yes Documented Results: Negative w/o proof Implanted On Prior [facility] Admission?: Yes Date: 07/18/18 PPD to be Administered?: Yes - Smoking Cessation Smoking history: Current every day smoker Have you smoked in the past 12 months: Yes Aproximately how many cigarettes per day: 3 Hx Chewing Tobacco Use: No Initiated information on smoking cessation: Yes 'Breaking Loose' booklet given: 10/08/19 - Substance & Tx. History Hx Alcohol Use: Yes Substance Use Type: Alcohol, Cocaine, Heroin, Prescribed Hx Substance Use Treatment: Yes ([facility] 05/05/19 to 05/10/19) - Substances abused Alcohol Substance route: Oral Frequency: Daily Amount used: 1 pint of bacardi/6 packs of 16 ozs of beer Age of first use: 17 Date of last use: 10/07/19 Cocaine Substance route: Injection Frequency: Daily Amount used: 50$ Age of first use: 23 Date of last use: 10/07/19 Alprazolam (Xanax) Substance route: Oral Frequency: Daily Amount used: 6 mgs Age of first use: 34 Date of last use: 10/06/19 Heroin Substance route: Injection Frequency: Daily Amount used: 4 bags Age of first use: 34 Date of last use: 10/07/19 Admission Physical Exam S - Vital Signs Vital Signs: t96.5,p56,bp 99/62,r16 - Physical General Appearance: Yes: Moderate Distress, Tremorous, Irritable, Sweating, Anxious HEENTM: Yes: Normal ENT Inspection, Normal Voice, Pharynx Normal Respiratory: Yes: Within Normal Limits, Lungs Clear, Normal Breath Sounds Neck: Yes: Within Normal Limits, No masses,lesions,Nodules, Supple Breast: Yes: Within Normal Limits Cardiology: Yes: Within Normal Limits, Regular Rhythm, Regular Rate, S1, S2 Abdominal: Yes: Within Normal Limits, Normal Bowel Sounds, Non Tender, Soft Genitourinary: Yes: Within Normal Limits Back: Yes: Muscle Spasm Musculoskeletal: Yes: Back pain, Muscle Pain Extremities: Yes: Tremors 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 (3) Hepatitis C Current Visit: No Status: Resolved Qualifiers: Viral hepatitis chronicity: chronic Hepatic coma status: without hepatic coma Qualified Code(s): B18.2 - Chronic viral hepatitis C Comment: On MAVYRET treatment (4) History of head and neck cancer Current Visit: No Status: Resolved Comment: S/P chemo and radiation. (5) History of syphilis Current Visit: No Status: Chronic (6) IVDU (intravenous drug user) Current Visit: No Status: Chronic (7) Methadone maintenance therapy patient Current Visit: No Status: Chronic (8) Nicotine dependence Current Visit: No Status: Chronic Qualifiers: Nicotine product type: cigarettes Substance use status: uncomplicated Qualified Code(s): F17.210 - Nicotine dependence, cigarettes, uncomplicated Comment: . (9) Sedative, hypnotic or anxiolytic dependence with withdrawal, uncomplicated Current Visit: No Status: Acute (10) Syphilis Current Visit: No Status: Resolved Cleared for Admission S - Detox or Rehab [facility] Level of Care: Medically Managed Detox Regimen/Protocol: Librium Breathalyzer - Breathalyzer Breathalyzer: 0 Urine Drug Screen - Test Device Lot number: [id number] Expiration date: 01/21/21 - Control Is test valid?: Yes - Results Drug screen NEGATIVE: No Urine drug screen results: DAMARI-Cocaine, FEN-Fentanyl, MOP-Opiates, MTD- Methadone, BZO-Benzodiazepines Inpatient Rehab Admission - Rehab Decision to Admit Inpatient rehab admission?: No
[2019-10-08] MEDS ORDERED: MAGNESIUM HYDROX 2400MG/30ML ORAL SUSPENSION 30 ML CUP PO PRN (14:24)
[2019-10-08] MEDS ORDERED: ACETAMINOPHEN 325 MG TABLET (FP) PO PRN ×2 (14:24)
[2019-10-08] MEDS ORDERED: BISMUTH SUBSALICYLATE 524 MG/30 ML UD PO PRN (14:24)
[2019-10-08] MEDS ORDERED: MAG HYDROX/AL HYDROX/SIMETH 30 ML UNIT-DOSE CUP PO PRN (14:24)
[2019-10-08] MEDS ORDERED: ONDANSETRON *ODT* 4 MG TABLET SL ONE (14:24)
[2019-10-08] MEDS ORDERED: METHOCARBAMOL 500 MG TABLET PO PRN (14:24)
[2019-10-08] MEDS ORDERED: IBUPROFEN 400 MG TABLET (FP) PO PRN (14:24)
[2019-10-08] MEDS ORDERED: chlordiazePOXIDE HCL 25 MG CAPSULE PO PRN (14:24)
[2019-10-08] MEDS ORDERED: MENTHOL/PHENOL 1 EACH UD MM PRN (14:24)
[2019-10-08] MEDS ORDERED: MAGNESIUM CITRATE 300 ML BOTTLE PO PRN (14:24)
[2019-10-08 15:30] VITALS: BMI 23.9
[2019-10-08] MEDS: hydrOXYzine PAMOATE 25 MG CAPSULE (FP) PO SCH ×2 (17:44→22:17)
[2019-10-08] MEDS: chlordiazePOXIDE HCL 25 MG CAPSULE PO SCH ×2 (17:44→22:15)
[2019-10-08] MEDS: MELATONIN 5 MG TABLETS PO SCH (22:16)
[2019-10-08] MEDS: THIAMINE HCL 100 MG TABLET (FP) PO SCH (22:17)
[2019-10-09] MEDS: hydrOXYzine PAMOATE 25 MG CAPSULE (FP) PO SCH ×5 (05:32→22:52)
[2019-10-09] MEDS: chlordiazePOXIDE HCL 25 MG CAPSULE PO SCH ×4 (05:32→22:52)
[2019-10-09] MEDS ORDERED: METHADONE HCL 10 MG TABLET PO ONE (08:58)
--- NOTE | 2019-10-09 09:19 | EKG ---
Test Reason : Blood Pressure : / mmHG Vent. Rate : 042 BPM Atrial Rate : 042 BPM P-R Int : 182 ms QRS Dur : 084 ms QT Int : 480 ms P-R-T Axes : 066 042 019 degrees QTc Int : 400 ms MARKED SINUS BRADYCARDIA ABNORMAL ECG WHEN COMPARED WITH ECG OF 05-MAY-2019 18:30, VENT. RATE HAS DECREASED BY 22 BPM Confirmed by SUZAN ACOSTA MD ([id number]) on 10/09/2019 9:18:35 AM Referred By: Confirmed By:SUZAN ACOSTA MD
[2019-10-09] MEDS ORDERED: METHADONE 80 MG, METHADONE 20 MG PO ONE (10:00)
[2019-10-09] MEDS ORDERED: METHADONE HCL 10 MG TABLET ONE (10:03)
[2019-10-09] MEDS ORDERED: METHADONE HCL 40 MG DISPERSABLE TABLET ONE (10:04)
[2019-10-09] MEDS: PRENATAL VITAMINS W/ FOLIC ACID TABLET (FP) PO SCH (10:16)
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
[2019-10-09] MEDS: ESCITALOPRAM OXALATE 10 MG TABLET PO SCH (11:05)
[2019-10-09 12:08] LABS: HEMATOCRIT 33.2 % (35.4-49); HEMOGLOBIN 11.1 GM/dL (11.7-16.9); MCH 28.8 pg (25.7-33.7); MCHC 33.5 g/dl (32.0-35.9); MEAN CELL VOLUME 86.1 fl (80-96); MEAN PLT VOLUME 8.7 fl (7.5-11.1); PLATELET COUNT 245 K/MM3 (134-434); RBC 3.85 M/mm3 (4.00-5.60); RDW 13.6 % (11.9-15.9); WHITE BLOOD COUNT 3.5 K/mm3 (4.0-10.0)
[2019-10-09 12:31] LABS: ALBUMIN 3.5 g/dl (3.4-5.0); CALCIUM 9.2 mg/dL (8.5-10.1); POTASSIUM 4.1 mmol/L (3.5-5.1); TOT PROT 7.2 g/dl (6.4-8.2)
--- NOTE | 2019-10-09 14:16 | PN ---
[facility] CIWA - CIWA Score Nausea/Vomitin-Mild Nausea/No Vomiting Muscle Tremors: 2 Anxiety: 2 Agitation: 2 Paroxysmal Sweats: 1-Minimal Palms Moist Orientation: 0-Oriented Tacttile Disturbances: 1-Very Mild Itch/Numbness Auditory Disturbances: 0-None Visual Disturbances: 0-None Headache: 1-Very Mild CIWA-Ar Total Score: 10 S Progress Note (SOAP) Subjective: alert,irritable,anxious,interrupted sleep,nausea Objective: 10/09/19 16:34 Vital Signs Temperature 97.8 F 10/09/19 12:55 Pulse Rate 48 L 10/09/19 12:55 Respiratory Rate 18 10/09/19 12:55 Blood Pressure 101/60 10/09/19 12:55 O2 Sat by Pulse Oximetry (%) 98 10/09/19 12:55 Laboratory Last Values WBC 3.5 K/mm3 (4.0-10.0) L 10/09/19 08:15 RBC 3.85 M/mm3 (4.00-5.60) L 10/09/19 08:15 Hgb 11.1 GM/dL (11.7-16.9) L 10/09/19 08:15 Hct 33.2 % (35.4-49) L 10/09/19 08:15 MCV 86.1 fl (80-96) 10/09/19 08:15 MCH 28.8 pg (25.7-33.7) 10/09/19 08:15 MCHC 33.5 g/dl (32.0-35.9) 10/09/19 08:15 RDW 13.6 % (11.9-15.9) 10/09/19 08:15 Plt Count 245 K/MM3 (134-434) 10/09/19 08:15 MPV 8.7 fl (7.5-11.1) 10/09/19 08:15 Sodium 139 mmol/L (136-145) 10/09/19 08:15 Potassium 4.1 mmol/L (3.5-5.1) 10/09/19 08:15 Chloride 104 mmol/L (98-107) 10/09/19 08:15 Carbon Dioxide 29 mmol/L (21-32) 10/09/19 08:15 Anion Gap 7 MMOL/L (8-16) L 10/09/19 08:15 BUN 14.0 mg/dL (7-18) 10/09/19 08:15 Creatinine 1.0 mg/dL (0.55-1.3) 10/09/19 08:15 Est GFR (CKD-EPI)AfAm 99.85 10/09/19 08:15 Est GFR (CKD-EPI)NonAf 86.15 10/09/19 08:15 Random Glucose 86 mg/dL (74-106) 10/09/19 08:15 Calcium 9.2 mg/dL (8.5-10.1) 10/09/19 08:15 Total Bilirubin 1.0 mg/dL (0.2-1) 10/09/19 08:15 AST 18 U/L (15-37) 10/09/19 08:15 ALT 15 U/L (13-61) 10/09/19 08:15 Alkaline Phosphatase 77 U/L (45-117) 10/09/19 08:15 Total Protein 7.2 g/dl (6.4-8.2) 10/09/19 08:15 Albumin 3.5 g/dl (3.4-5.0) 10/09/19 08:15 Syphilis Serology Reactive (NONREACTIVE) A* 10/09/19 08:15 RPR Titer Reactive 1:2 (NONREACTIVE) H 10/09/19 08:15 HIV Ag/Ab Combo Qual Negative (NEGATIVE) 10/09/19 08:15 10/09/19 16:38 history of syphilis adequately treated before Assessment: 10/09/19 16:39 withdrawal symptom Plan: continue detox librium regimen,methadone maintenance 100 mgs/day
[2019-10-09] MEDS: ALBUTEROL SO4 HFA INHALER IH PRN (14:41)
[2019-10-09] MEDS: MELATONIN 5 MG TABLETS PO SCH (22:52)
[2019-10-09] MEDS: traZODone HCL 50 MG TABLET (FP) PO SCH (22:52)
[2019-10-09] MEDS: THIAMINE HCL 100 MG TABLET (FP) PO SCH (22:52)
[2019-10-10] MEDS ORDERED: METHADONE HCL 40 MG DISPERSABLE TABLET ONE (05:39)
[2019-10-10] MEDS ORDERED: METHADONE HCL 10 MG TABLET ONE (05:39)
[2019-10-10] MEDS: METHADONE 80 MG, METHADONE 20 MG PO SCH (05:39)
[2019-10-10] MEDS: chlordiazePOXIDE HCL 25 MG CAPSULE PO SCH ×4 (05:40→22:35)
[2019-10-10] MEDS: hydrOXYzine PAMOATE 25 MG CAPSULE (FP) PO SCH (05:40)
[2019-10-10] MEDS ORDERED: METHADONE HCL 40 MG DISPERSABLE TABLET PO SCH (06:00)
[2019-10-10] MEDS ORDERED: hydrOXYzine PAMOATE 25 MG CAPSULE (FP) PO PRN (09:48)
[2019-10-10] MEDS: PRENATAL VITAMINS W/ FOLIC ACID TABLET (FP) PO SCH (10:23)
[2019-10-10] MEDS: ESCITALOPRAM OXALATE 10 MG TABLET PO SCH (10:23)
--- NOTE | 2019-10-10 12:25 | PN ---
S CIWA - CIWA Score Nausea/Vomitin-Mild Nausea/No Vomiting Muscle Tremors: 2 Anxiety: 2 Agitation: 2 Paroxysmal Sweats: No Perspiration Orientation: 0-Oriented Tacttile Disturbances: 0-None Auditory Disturbances: 0-None Visual Disturbances: 0-None Headache: 1-Very Mild CIWA-Ar Total Score: 8 BHS Progress Note (SOAP) Subjective: alert,irritable,anxious,interrupted sleep,coughing with yellowish phlegm Objective: 10/10/19 12:23 Vital Signs Temperature 97.7 F 10/10/19 08:52 Pulse Rate 62 10/10/19 08:52 Respiratory Rate 16 10/10/19 08:52 Blood Pressure 94/51 L 10/10/19 08:52 O2 Sat by Pulse Oximetry (%) 99 10/10/19 08:52 Assessment: 10/10/19 12:23 withdrawal symptom lung clear,no wheezing Plan: continue detox librium regimen,mmtp 100 mgs/day,maintenance,bactrim ds 1 tab po bid for bronchitis
[2019-10-10] MEDS: SULFAMETHOXAZOLE/TRIMETHOPRIM 800MG/160MG D.S. TABLET PO SCH ×2 (13:31→22:24)
[2019-10-10] MEDS: traZODone HCL 50 MG TABLET (FP) PO SCH (22:24)
[2019-10-10] MEDS: THIAMINE HCL 100 MG TABLET (FP) PO SCH (22:24)
[2019-10-10] MEDS: MELATONIN 5 MG TABLETS PO SCH (22:35)
[2019-10-11] MEDS ORDERED: chlordiazePOXIDE HCL 10 MG CAPSULE PO PRN
[2019-10-11] MEDS ORDERED: METHADONE HCL 10 MG TABLET ONE (04:42)
[2019-10-11] MEDS ORDERED: METHADONE HCL 40 MG DISPERSABLE TABLET ONE (04:42)
[2019-10-11] MEDS: METHADONE 80 MG, METHADONE 20 MG PO SCH (05:30)
[2019-10-11] MEDS: chlordiazePOXIDE HCL 10 MG CAPSULE PO SCH ×4 (05:30→22:35)
[2019-10-11] MEDS: SULFAMETHOXAZOLE/TRIMETHOPRIM 800MG/160MG D.S. TABLET PO SCH ×2 (10:08→22:28)
[2019-10-11] MEDS: ESCITALOPRAM OXALATE 10 MG TABLET PO SCH (10:08)
[2019-10-11] MEDS: PRENATAL VITAMINS W/ FOLIC ACID TABLET (FP) PO SCH (10:08)
--- NOTE | 2019-10-11 12:06 | PN ---
S CIWA - CIWA Score Nausea/Vomitin-Mild Nausea/No Vomiting Muscle Tremors: 1-None Visible, but [place] Anxiety: 1-Mildly Anxious Agitation: 1-Slight > Activity Paroxysmal Sweats: No Perspiration Orientation: 0-Oriented Tacttile Disturbances: 1-Very Mild Itch/Numbness Auditory Disturbances: 0-None Visual Disturbances: 0-None Headache: 2-Mild CIWA-Ar Total Score: 7 BHS Progress Note (SOAP) Subjective: alert,irritable,anxious,interrupted sleep,pain iin the body Objective: 10/11/19 12:04 Vital Signs Temperature 96.9 F L 10/11/19 08:32 Pulse Rate 51 L 10/11/19 08:32 Respiratory Rate 16 10/11/19 08:32 Blood Pressure 112/57 L 10/11/19 08:32 O2 Sat by Pulse Oximetry (%) 97 10/11/19 06:21 Assessment: 10/11/19 12:05 withdrawal symptom Plan: continue detox librium regimen,methadone maintenance 100 mgs/day maintenance,on bactrim ds 1 tab po bid for bronchitis
[2019-10-11] MEDS: ALBUTEROL SO4 HFA INHALER IH PRN (14:53)
[2019-10-11] MEDS: MELATONIN 5 MG TABLETS PO SCH (22:28)
[2019-10-11] MEDS: THIAMINE HCL 100 MG TABLET (FP) PO SCH (22:28)
[2019-10-11] MEDS: traZODone HCL 50 MG TABLET (FP) PO SCH (22:35)
[2019-10-12] MEDS ORDERED: METHADONE HCL 10 MG TABLET ONE (04:27)
[2019-10-12] MEDS ORDERED: METHADONE HCL 40 MG DISPERSABLE TABLET ONE (04:27)
[2019-10-12] MEDS: METHADONE 80 MG, METHADONE 20 MG PO SCH (05:36)
[2019-10-12] MEDS: chlordiazePOXIDE HCL 10 MG CAPSULE PO SCH ×2 (05:36→18:20)
[2019-10-12] MEDS: SULFAMETHOXAZOLE/TRIMETHOPRIM 800MG/160MG D.S. TABLET PO SCH ×2 (10:21→22:02)
[2019-10-12] MEDS: PRENATAL VITAMINS W/ FOLIC ACID TABLET (FP) PO SCH (10:21)
[2019-10-12] MEDS: ESCITALOPRAM OXALATE 10 MG TABLET PO SCH (10:21)
--- NOTE | 2019-10-12 12:48 | PN ---
S CIWA - CIWA Score Nausea/Vomitin-No Nausea/No Vomiting Muscle Tremors: 1-None Visible, but [place] Anxiety: 1-Mildly Anxious Agitation: 1-Slight > Activity Paroxysmal Sweats: No Perspiration Orientation: 0-Oriented Tacttile Disturbances: 1-Very Mild Itch/Numbness Auditory Disturbances: 0-None Visual Disturbances: 0-None Headache: 1-Very Mild CIWA-Ar Total Score: 5 BHS Progress Note (SOAP) Subjective: alert,irritable,anxious,interrupted sleep,aching pain in the body and back Objective: 10/12/19 12:45 Vital Signs Temperature 97.1 F L 10/12/19 08:32 Pulse Rate 64 10/12/19 08:32 Respiratory Rate 16 10/12/19 08:32 Blood Pressure 106/67 10/12/19 08:32 O2 Sat by Pulse Oximetry (%) 95 10/12/19 05:15 Assessment: 10/12/19 12:46 withdrawal symptom Plan: continue detox librium regimen,methadone 100 mgs po daily maintenance,continue batrim ds 1 tab po bid,discharge in am
[2019-10-12] MEDS: THIAMINE HCL 100 MG TABLET (FP) PO SCH (22:02)
[2019-10-12] MEDS: traZODone HCL 50 MG TABLET (FP) PO SCH (22:02)
[2019-10-12] MEDS: MELATONIN 5 MG TABLETS PO SCH (22:16)
[2019-10-12] MEDS: ALBUTEROL SO4 HFA INHALER IH PRN (22:17)
[2019-10-13] MEDS ORDERED: METHADONE HCL 40 MG DISPERSABLE TABLET ONE (04:28)
[2019-10-13] MEDS ORDERED: METHADONE HCL 10 MG TABLET ONE (04:28)
[2019-10-13] MEDS ORDERED: chlordiazePOXIDE HCL 10 MG CAPSULE PO ONE (05:00)
[2019-10-13] MEDS: METHADONE 80 MG, METHADONE 20 MG PO SCH (06:01)
--- NOTE | 2019-10-13 10:23 | PN ---
[facility] CIWA - CIWA Score Nausea/Vomitin-No Nausea/No Vomiting Muscle Tremors: None Anxiety: 1-Mildly Anxious Agitation: 0-Normal Activity Paroxysmal Sweats: No Perspiration Orientation: 0-Oriented Tacttile Disturbances: 0-None Auditory Disturbances: 0-None Visual Disturbances: 0-None Headache: 0-None Present CIWA-Ar Total Score: 1 S Progress Note (SOAP) Subjective: alert,no complaint Objective: 10/13/19 10:21 Vital Signs Temperature 97.8 F 10/13/19 05:29 Pulse Rate 67 10/13/19 07:44 Respiratory Rate 18 10/13/19 05:29 Blood Pressure 99/69 10/13/19 07:44 O2 Sat by Pulse Oximetry (%) 96 10/13/19 05:29 Assessment: 10/13/19 10:22 detox completed,no withdrawal symptom Plan: stable for discharge today,follow up with after care program as arrangement revelation
--- NOTE | 2019-10-13 10:24 | DS ---
[facility] Detox Discharge Summary Admission Date: 10/08/19 Discharge Date: 10/13/19 - History Present History: Alcohol Dependence, Cocaine Dependence, Sedative Dependence, MMTP Additional Comments: alert,oriented x 3 ambulation on the unit lung clear on auscultation bilaterally abdomen soft,no distension,no pain no swelling of leg detox completed,no withdrawal symptom stable for discharge today follow up with after care program as arrangement revelation total time spending on discharge 35 minutes Pertinent Past History: depression hepatitis c IVDU weight loss history of throat cancer asthma - Physical Exam Results Vital Signs: Vital Signs Temperature 97.8 F 10/13/19 05:29 Pulse Rate 67 10/13/19 07:44 Respiratory Rate 18 10/13/19 05:29 Blood Pressure 99/69 10/13/19 07:44 O2 Sat by Pulse Oximetry (%) 96 10/13/19 05:29 Pertinent Admission Physical Exam Findings: withdrawal sign and symptom Laboratory Last Values WBC 3.5 K/mm3 (4.0-10.0) L 10/09/19 08:15 RBC 3.85 M/mm3 (4.00-5.60) L 10/09/19 08:15 Hgb 11.1 GM/dL (11.7-16.9) L 10/09/19 08:15 Hct 33.2 % (35.4-49) L 10/09/19 08:15 MCV 86.1 fl (80-96) 10/09/19 08:15 MCH 28.8 pg (25.7-33.7) 10/09/19 08:15 MCHC 33.5 g/dl (32.0-35.9) 10/09/19 08:15 RDW 13.6 % (11.9-15.9) 10/09/19 08:15 Plt Count 245 K/MM3 (134-434) 10/09/19 08:15 MPV 8.7 fl (7.5-11.1) 10/09/19 08:15 Sodium 139 mmol/L (136-145) 10/09/19 08:15 Potassium 4.1 mmol/L (3.5-5.1) 10/09/19 08:15 Chloride 104 mmol/L (98-107) 10/09/19 08:15 Carbon Dioxide 29 mmol/L (21-32) 10/09/19 08:15 Anion Gap 7 MMOL/L (8-16) L 10/09/19 08:15 BUN 14.0 mg/dL (7-18) 10/09/19 08:15 Creatinine 1.0 mg/dL (0.55-1.3) 10/09/19 08:15 Est GFR (CKD-EPI)AfAm 99.85 10/09/19 08:15 Est GFR (CKD-EPI)NonAf 86.15 10/09/19 08:15 Random Glucose 86 mg/dL (74-106) 10/09/19 08:15 Calcium 9.2 mg/dL (8.5-10.1) 10/09/19 08:15 Total Bilirubin 1.0 mg/dL (0.2-1) 10/09/19 08:15 AST 18 U/L (15-37) 10/09/19 08:15 ALT 15 U/L (13-61) 10/09/19 08:15 Alkaline Phosphatase 77 U/L (45-117) 10/09/19 08:15 Total Protein 7.2 g/dl (6.4-8.2) 10/09/19 08:15 Albumin 3.5 g/dl (3.4-5.0) 10/09/19 08:15 Syphilis Serology Reactive (NONREACTIVE) A* 10/09/19 08:15 RPR Titer Reactive 1:2 (NONREACTIVE) H 10/09/19 08:15 COVID-19 (ELLE) Not detected (Not Detected) 10/08/19 22:15 HIV Ag/Ab Combo Qual Negative (NEGATIVE) 10/09/19 08:15 Vital Signs Temperature 97.8 F 10/13/19 05:29 Pulse Rate 67 10/13/19 07:44 Respiratory Rate 18 10/13/19 05:29 Blood Pressure 99/69 10/13/19 07:44 O2 Sat by Pulse Oximetry (%) 96 10/13/19 05:29 - Treatment Hospital Course: Detox Protocol Followed, Detoxed Safely, Responded well - Medication Discharge Medications: Ambulatory Orders Glecaprevir/Pibrentasvir [Mavyret 100-40 mg Tablet] 3 tab PO DAILY 06/27/18 Albuterol Sulfate Inhaler - [Ventolin HFA Inhaler -] 2 inhaler IH Q4H PRN 07/01/18 Escitalopram Oxalate [Lexapro -] 10 mg PO DAILY 05/10/19 traZODone HCL [Desyrel -] 50 mg PO HS #30 tablet 05/25/19 - Diagnosis (1) Alcohol dependence with uncomplicated withdrawal Current Visit: No Status: Acute (2) Cocaine dependence, uncomplicated Current Visit: No Status: Acute (3) Hepatitis C Current Visit: No Status: Resolved Qualifiers: Viral hepatitis chronicity: chronic Hepatic coma status: without hepatic coma Qualified Code(s): B18.2 - Chronic viral hepatitis C (4) History of head and neck cancer Current Visit: No Status: Resolved (5) History of syphilis Current Visit: No Status: Chronic (6) IVDU (intravenous drug user) Current Visit: No Status: Chronic (7) Methadone maintenance therapy patient Current Visit: No Status: Chronic (8) Nicotine dependence Current Visit: No Status: Chronic Qualifiers: Nicotine product type: cigarettes Substance use status: uncomplicated Qualified Code(s): F17.210 - Nicotine dependence, cigarettes, uncomplicated (9) Sedative, hypnotic or anxiolytic dependence with withdrawal, uncomplicated Current Visit: No Status: Acute (10) Syphilis Current Visit: No Status: Resolved (11) Bronchitis Current Visit: Yes Status: Acute - AMA Did Patient Leave Against Medical Advice: No
[2019-10-13] MEDS: PRENATAL VITAMINS W/ FOLIC ACID TABLET (FP) PO SCH (10:28)
[2019-10-13] MEDS: ESCITALOPRAM OXALATE 10 MG TABLET PO SCH (10:29)
[2019-10-13] MEDS: SULFAMETHOXAZOLE/TRIMETHOPRIM 800MG/160MG D.S. TABLET PO SCH (10:29)
[2019-10-13 11:55] VITALS: BP 103/58; PULSE 64; TEMP 97.7
== END 2019-10-13 12:53 | disposition other institution (70) | DRG 897 ==
LOC: YASAS 12:29 → Y6N 16:12
PROVIDERS: ADMIT Allergy & Immunology; ATTEND Allergy & Immunology
PROC: HZ2ZZZZ Detoxification Services for Substance Abuse Treatment (ICD-10-PCS; principal; 2019-10-08)
DX: F10.230 Alcohol dependence with withdrawal, uncomplicated (principal); F14.20 Cocaine dependence, uncomplicated; F11.20 Opioid dependence, uncomplicated; F19.282 Other psychoactive substance dependence with psychoactive substance-induced sleep disorder; F19.280 Other psychoactive substance dependence with psychoactive substance-induced anxiety disorder; F13.230 Sedative, hypnotic or anxiolytic dependence with withdrawal, uncomplicated; F17.210 Nicotine dependence, cigarettes, uncomplicated; F32.9 Major depressive disorder, single episode, unspecified; B18.2 Chronic viral hepatitis C; J45.909 Unspecified asthma, uncomplicated; J40 Bronchitis, not specified as acute or chronic; K21.9 Gastro-esophageal reflux disease without esophagitis; M54.5 Low back pain; G89.29 Other chronic pain; Z62.810 Personal history of physical and sexual abuse in childhood; Z86.19 Personal history of other infectious and parasitic diseases; R63.4 Abnormal weight loss; Z68.24 Body mass index [BMI] 24.0-24.9, adult; Z85.818 Personal history of malignant neoplasm of other sites of lip, oral cavity, and pharynx
CPT/HCPCS: 36415; 80053; 85027; 86593; 86780; 87389; 93005; 93010; U0003

== ENCOUNTER 2019-10-13 13:06 | Inpatient (IN) | payer OTHER ==
[2019-10-13] MEDS ORDERED: MAGNESIUM HYDROX 2400MG/30ML ORAL SUSPENSION 30 ML CUP PO PRN (13:52)
[2019-10-13] MEDS ORDERED: ACETAMINOPHEN 325 MG TABLET (FP) PO PRN (13:52)
[2019-10-13] MEDS ORDERED: NICOTINE POLACRILEX 2 MG GUM BUC PRN (13:52)
[2019-10-13] MEDS ORDERED: IBUPROFEN 400 MG TABLET (FP) PO PRN (13:52)
[2019-10-13] MEDS ORDERED: MENTHOL/PHENOL 1 EACH UD MM PRN (13:52)
[2019-10-13] MEDS ORDERED: LOPERAMIDE HCL 2 MG CAPSULE PO PRN (13:52)
[2019-10-13] MEDS ORDERED: MAGNESIUM CITRATE 300 ML BOTTLE PO PRN (13:52)
[2019-10-13] MEDS ORDERED: P-EPHED 60MG/TRIPROLIDI 2.5MG TABLET PO PRN (13:52)
--- NOTE | 2019-10-13 13:52 | HP ---
TODD NI Rehab Assess/Revision - Admission History Admitted to Rehab from: [facility] [address] [place] [address] - Vital signs Vital Signs: Vital Signs Period Temp Pulse Resp BP Sys/[place] Pulse Ox Last 24 Hr 97.7 F 60 18 99/55 95 - Findings Detox History & Physical reviewed: Yes Concur with findings: Yes Inpatient Rehab Admission - Rehab Decision to Admit Inpatient rehab admission?: Yes - Initial Determination Are CD services needed?: Yes Free of communicable disease: Yes Not in need of hospitalization: Yes - Rehab Admission Criteria Previous failed treatment: Yes Poor recovery environment: Yes Comorbidities: Yes Lacks judgement: No Patient is meeting Inpatient Rehab admission criteria:: Yes
[2019-10-13] MEDS: ALBUTEROL SO4 HFA INHALER IH PRN (19:39)
[2019-10-13] MEDS ORDERED: PT OWN MED DRAWER 7, Y5N ONE (19:39)
[2019-10-13] MEDS: MELATONIN 5 MG TABLETS PO SCH (21:24)
[2019-10-13] MEDS: THIAMINE HCL 100 MG TABLET (FP) PO SCH (21:24)
[2019-10-13] MEDS: SULFAMETHOXAZOLE/TRIMETHOPRIM 800MG/160MG D.S. TABLET PO SCH (21:24)
[2019-10-13] MEDS: traZODone HCL 50 MG TABLET (FP) PO SCH (21:24)
[2019-10-14] MEDS ORDERED: METHADONE HCL 10 MG TABLET PO SCH (06:00)
[2019-10-14] MEDS ORDERED: METHADONE HCL 40 MG DISPERSABLE TABLET ONE (06:54)
[2019-10-14] MEDS ORDERED: METHADONE HCL 10 MG TABLET ONE (06:54)
[2019-10-14] MEDS: METHADONE 80 MG, METHADONE 20 MG PO SCH (07:10)
[2019-10-14] MEDS ORDERED: NICOTINE 7 MG/24 HOURS TOPICAL PATCH TD SCH (10:00)
[2019-10-14] MEDS ORDERED: ESCITALOPRAM OXALATE 10 MG TABLET PO SCH (10:00)
[2019-10-14] MEDS: SULFAMETHOXAZOLE/TRIMETHOPRIM 800MG/160MG D.S. TABLET PO SCH ×2 (10:17→21:00)
[2019-10-14] MEDS: ESCITALOPRAM OXALATE 20 MG TABLET PO SCH (10:17)
[2019-10-14] MEDS: PRENATAL VITAMINS W/ FOLIC ACID TABLET (FP) PO SCH (10:18)
[2019-10-14] MEDS: traZODone HCL 50 MG TABLET (FP) PO SCH (21:00)
[2019-10-14] MEDS: THIAMINE HCL 100 MG TABLET (FP) PO SCH (21:00)
[2019-10-14] MEDS: MELATONIN 5 MG TABLETS PO SCH (21:01)
[2019-10-15] MEDS: hydrOXYzine PAMOATE 25 MG CAPSULE (FP) PO PRN (02:47)
[2019-10-15] MEDS ORDERED: METHADONE HCL 10 MG TABLET ONE (06:06)
[2019-10-15] MEDS ORDERED: METHADONE HCL 40 MG DISPERSABLE TABLET ONE (06:06)
[2019-10-15] MEDS: METHADONE 80 MG, METHADONE 20 MG PO SCH (06:07)
[2019-10-15] MEDS: PRENATAL VITAMINS W/ FOLIC ACID TABLET (FP) PO SCH (09:39)
[2019-10-15] MEDS: SULFAMETHOXAZOLE/TRIMETHOPRIM 800MG/160MG D.S. TABLET PO SCH ×2 (09:39→21:28)
[2019-10-15] MEDS: ESCITALOPRAM OXALATE 20 MG TABLET PO SCH (09:39)
[2019-10-15] MEDS: ALBUTEROL SO4 HFA INHALER IH PRN (09:40)
[2019-10-15] MEDS: THIAMINE HCL 100 MG TABLET (FP) PO SCH (21:28)
[2019-10-15] MEDS: traZODone HCL 50 MG TABLET (FP) PO SCH (21:28)
[2019-10-15] MEDS: MELATONIN 5 MG TABLETS PO SCH (21:29)
[2019-10-16] MEDS ORDERED: METHADONE HCL 40 MG DISPERSABLE TABLET ONE (05:22)
[2019-10-16] MEDS ORDERED: METHADONE HCL 10 MG TABLET ONE (05:22)
[2019-10-16] MEDS: METHADONE 80 MG, METHADONE 20 MG PO SCH (06:10)
[2019-10-16] MEDS: SULFAMETHOXAZOLE/TRIMETHOPRIM 800MG/160MG D.S. TABLET PO SCH ×2 (10:35→21:19)
[2019-10-16] MEDS: ALBUTEROL SO4 HFA INHALER IH PRN ×2 (10:35→21:20)
[2019-10-16] MEDS: ESCITALOPRAM OXALATE 20 MG TABLET PO SCH (10:35)
[2019-10-16] MEDS: hydrOXYzine PAMOATE 25 MG CAPSULE (FP) PO PRN (10:35)
[2019-10-16] MEDS: PRENATAL VITAMINS W/ FOLIC ACID TABLET (FP) PO SCH (10:35)
[2019-10-16] MEDS: DOCUSATE SODIUM 100 MG CAPSULE (FP) PO SCH ×2 (13:15→21:19)
[2019-10-16] MEDS: MAG HYDROX/AL HYDROX/SIMETH 30 ML UNIT-DOSE CUP PO PRN (13:16)
[2019-10-16] MEDS: THIAMINE HCL 100 MG TABLET (FP) PO SCH (21:19)
[2019-10-16] MEDS: traZODone HCL 50 MG TABLET (FP) PO SCH (21:19)
[2019-10-16] MEDS: MELATONIN 5 MG TABLETS PO SCH (21:19)
[2019-10-17] MEDS ORDERED: METHADONE HCL 10 MG TABLET ONE (05:35)
[2019-10-17] MEDS ORDERED: METHADONE HCL 40 MG DISPERSABLE TABLET ONE (05:35)
[2019-10-17] MEDS: DOCUSATE SODIUM 100 MG CAPSULE (FP) PO SCH ×3 (06:28→21:22)
[2019-10-17] MEDS: METHADONE 80 MG, METHADONE 20 MG PO SCH (06:28)
[2019-10-17] MEDS: SULFAMETHOXAZOLE/TRIMETHOPRIM 800MG/160MG D.S. TABLET PO SCH ×2 (10:04→21:22)
[2019-10-17] MEDS: PRENATAL VITAMINS W/ FOLIC ACID TABLET (FP) PO SCH (10:04)
[2019-10-17] MEDS: hydrOXYzine PAMOATE 25 MG CAPSULE (FP) PO PRN (10:04)
[2019-10-17] MEDS: ESCITALOPRAM OXALATE 20 MG TABLET PO SCH (10:04)
[2019-10-17] MEDS: ALBUTEROL SO4 HFA INHALER IH PRN (10:05)
[2019-10-17] MEDS: traZODone HCL 50 MG TABLET (FP) PO SCH (21:22)
[2019-10-17] MEDS: THIAMINE HCL 100 MG TABLET (FP) PO SCH (21:22)
[2019-10-17] MEDS: MELATONIN 5 MG TABLETS PO SCH (21:22)
[2019-10-18] MEDS ORDERED: METHADONE HCL 10 MG TABLET ONE (05:31)
[2019-10-18] MEDS ORDERED: METHADONE HCL 40 MG DISPERSABLE TABLET ONE (05:31)
[2019-10-18] MEDS: METHADONE 80 MG, METHADONE 20 MG PO SCH (05:52)
[2019-10-18] MEDS: DOCUSATE SODIUM 100 MG CAPSULE (FP) PO SCH ×3 (05:52→21:25)
[2019-10-18] MEDS: PRENATAL VITAMINS W/ FOLIC ACID TABLET (FP) PO SCH (09:39)
[2019-10-18] MEDS: hydrOXYzine PAMOATE 25 MG CAPSULE (FP) PO PRN (09:39)
[2019-10-18] MEDS: SULFAMETHOXAZOLE/TRIMETHOPRIM 800MG/160MG D.S. TABLET PO SCH (09:39)
[2019-10-18] MEDS: guaiFENesin 200 MG/10 ML 10 ML UNIT-DOSE CUPS PO PRN ×2 (09:39→21:25)
[2019-10-18] MEDS: ESCITALOPRAM OXALATE 20 MG TABLET PO SCH (09:39)
[2019-10-18] MEDS: ALBUTEROL SO4 HFA INHALER IH PRN (09:40)
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
[2019-10-18] MEDS: MELATONIN 5 MG TABLETS PO SCH (21:25)
[2019-10-18] MEDS: traZODone HCL 50 MG TABLET (FP) PO SCH (21:25)
[2019-10-18] MEDS: THIAMINE HCL 100 MG TABLET (FP) PO SCH (21:25)
[2019-10-19] MEDS ORDERED: METHADONE HCL 40 MG DISPERSABLE TABLET ONE (02:58)
[2019-10-19] MEDS ORDERED: METHADONE HCL 10 MG TABLET ONE (02:58)
[2019-10-19] MEDS: METHADONE 80 MG, METHADONE 20 MG PO SCH (06:14)
[2019-10-19] MEDS: DOCUSATE SODIUM 100 MG CAPSULE (FP) PO SCH ×3 (06:14→21:31)
[2019-10-19] MEDS: PRENATAL VITAMINS W/ FOLIC ACID TABLET (FP) PO SCH (09:16)
[2019-10-19] MEDS: ESCITALOPRAM OXALATE 20 MG TABLET PO SCH (09:17)
[2019-10-19] MEDS: ALBUTEROL SO4 HFA INHALER IH PRN (21:30)
[2019-10-19] MEDS: THIAMINE HCL 100 MG TABLET (FP) PO SCH (21:31)
[2019-10-19] MEDS: traZODone HCL 50 MG TABLET (FP) PO SCH (21:31)
[2019-10-19] MEDS: hydrOXYzine PAMOATE 25 MG CAPSULE (FP) PO PRN (21:31)
[2019-10-19] MEDS: MELATONIN 5 MG TABLETS PO SCH (21:33)
[2019-10-20] MEDS ORDERED: METHADONE HCL 10 MG TABLET ONE (05:32)
[2019-10-20] MEDS ORDERED: METHADONE HCL 40 MG DISPERSABLE TABLET ONE (05:32)
[2019-10-20] MEDS: METHADONE 80 MG, METHADONE 20 MG PO SCH (05:48)
[2019-10-20] MEDS: DOCUSATE SODIUM 100 MG CAPSULE (FP) PO SCH ×3 (05:48→21:32)
[2019-10-20] MEDS: ESCITALOPRAM OXALATE 20 MG TABLET PO SCH (09:31)
[2019-10-20] MEDS: ALBUTEROL SO4 HFA INHALER IH PRN (09:31)
[2019-10-20] MEDS: PRENATAL VITAMINS W/ FOLIC ACID TABLET (FP) PO SCH (09:31)
[2019-10-20] MEDS: MAG HYDROX/AL HYDROX/SIMETH 30 ML UNIT-DOSE CUP PO PRN (20:08)
[2019-10-20] MEDS: MELATONIN 5 MG TABLETS PO SCH (21:32)
[2019-10-20] MEDS: traZODone HCL 50 MG TABLET (FP) PO SCH (21:32)
[2019-10-20] MEDS: THIAMINE HCL 100 MG TABLET (FP) PO SCH (21:32)
[2019-10-21] MEDS ORDERED: METHADONE HCL 40 MG DISPERSABLE TABLET ONE (05:34)
[2019-10-21] MEDS ORDERED: METHADONE HCL 10 MG TABLET ONE (05:35)
[2019-10-21] MEDS: METHADONE 80 MG, METHADONE 20 MG PO SCH (06:02)
[2019-10-21] MEDS: DOCUSATE SODIUM 100 MG CAPSULE (FP) PO SCH ×3 (06:03→21:29)
[2019-10-21] MEDS: PRENATAL VITAMINS W/ FOLIC ACID TABLET (FP) PO SCH (10:10)
[2019-10-21] MEDS: ALBUTEROL SO4 HFA INHALER IH PRN (10:10)
[2019-10-21] MEDS: ESCITALOPRAM OXALATE 20 MG TABLET PO SCH (10:10)
[2019-10-21] MEDS: MELATONIN 5 MG TABLETS PO SCH (21:29)
[2019-10-21] MEDS: THIAMINE HCL 100 MG TABLET (FP) PO SCH (21:29)
[2019-10-21] MEDS: traZODone HCL 50 MG TABLET (FP) PO SCH (21:29)
[2019-10-22] MEDS ORDERED: METHADONE HCL 40 MG DISPERSABLE TABLET ONE (04:55)
[2019-10-22] MEDS ORDERED: METHADONE HCL 10 MG TABLET ONE (04:56)
[2019-10-22] MEDS: DOCUSATE SODIUM 100 MG CAPSULE (FP) PO SCH ×3 (05:59→21:22)
[2019-10-22] MEDS: METHADONE 80 MG, METHADONE 20 MG PO SCH (05:59)
[2019-10-22] MEDS: hydrOXYzine PAMOATE 25 MG CAPSULE (FP) PO PRN (09:28)
[2019-10-22] MEDS: ESCITALOPRAM OXALATE 20 MG TABLET PO SCH (09:28)
[2019-10-22] MEDS: PRENATAL VITAMINS W/ FOLIC ACID TABLET (FP) PO SCH (09:28)
[2019-10-22] MEDS: traZODone HCL 50 MG TABLET (FP) PO SCH (21:22)
[2019-10-22] MEDS: MELATONIN 5 MG TABLETS PO SCH (21:22)
[2019-10-22] MEDS: THIAMINE HCL 100 MG TABLET (FP) PO SCH (21:22)
[2019-10-23] MEDS ORDERED: METHADONE HCL 10 MG TABLET ONE (03:22)
[2019-10-23] MEDS ORDERED: METHADONE HCL 40 MG DISPERSABLE TABLET ONE (03:22)
[2019-10-23] MEDS: DOCUSATE SODIUM 100 MG CAPSULE (FP) PO SCH ×3 (05:49→21:39)
[2019-10-23] MEDS: METHADONE 80 MG, METHADONE 20 MG PO SCH (05:49)
[2019-10-23 06:52] VITALS: PULSE 60
[2019-10-23] MEDS: hydrOXYzine PAMOATE 25 MG CAPSULE (FP) PO PRN (09:36)
[2019-10-23] MEDS: ESCITALOPRAM OXALATE 20 MG TABLET PO SCH (09:36)
[2019-10-23] MEDS: PRENATAL VITAMINS W/ FOLIC ACID TABLET (FP) PO SCH (09:36)
[2019-10-23] MEDS: ALBUTEROL SO4 HFA INHALER IH PRN (09:37)
--- NOTE | 2019-10-23 13:33 | PN ---
[facility] Progress Note Note: Patient is scheduled for discharge tomorrow. Scripts for 30 days supply of medications(Lexapro 20 mg/day, [id number] mg/hs) will be electronically transmitted to [facility], [address], [place] [address]
[2019-10-23 21:39] VITALS: TEMP 98.2
[2019-10-23] MEDS: MELATONIN 5 MG TABLETS PO SCH (21:39)
[2019-10-23] MEDS: traZODone HCL 50 MG TABLET (FP) PO SCH (21:39)
[2019-10-23] MEDS: THIAMINE HCL 100 MG TABLET (FP) PO SCH (21:39)
[2019-10-24] MEDS ORDERED: METHADONE HCL 10 MG TABLET ONE (04:58)
[2019-10-24] MEDS ORDERED: METHADONE HCL 40 MG DISPERSABLE TABLET ONE (04:58)
[2019-10-24] MEDS: METHADONE 80 MG, METHADONE 20 MG PO SCH (06:17)
[2019-10-24] MEDS: DOCUSATE SODIUM 100 MG CAPSULE (FP) PO SCH (06:17)
[2019-10-24 07:00] VITALS: BP 99/64
[2019-10-24] MEDS: hydrOXYzine PAMOATE 25 MG CAPSULE (FP) PO PRN (09:16)
[2019-10-24] MEDS: ESCITALOPRAM OXALATE 20 MG TABLET PO SCH (09:16)
[2019-10-24] MEDS: PRENATAL VITAMINS W/ FOLIC ACID TABLET (FP) PO SCH (09:16)
--- NOTE | 2019-10-24 09:31 | DS ---
[facility] Rehab Discharge Summary - [facility] Rehab Discharge Summary Admission Date: 10/13/19 Discharge Date: 10/24/19 - History Present History: Alcohol dependence, Cocaine dependence, MMTP, Opioid dependence, Sedative dependence Pertinent Past History: Asthma Hx Head/Neck cancer Hep C Chronic Low Back Pain Depression/Anxiety - Discharge Physical Exam Vital Signs: Vital Signs Temperature 98.2 F 10/24/19 06:17 Pulse Rate 60 10/24/19 06:17 Respiratory Rate 18 10/24/19 06:17 Blood Pressure 99/64 10/24/19 06:17 O2 Sat by Pulse Oximetry (%) 96 10/24/19 06:17 Alert o x 3, coherent nad, no resp difficulty oob ambulating with steady gait Active FROM, all limbs - Treatment Discharge Condition: Discharge condition good, Rehabilitated safely, Responded well, Outpatient referral accepted Hospital Course: Pt completed rehab and discharge today Pt referred to [facility] aftercare and accepted to [facility] - Medication Discharge Medications: Ambulatory Orders Glecaprevir/Pibrentasvir [Mavyret 100-40 mg Tablet] 3 tab PO DAILY 06/27/18 Albuterol Sulfate Inhaler - [Ventolin HFA Inhaler -] 2 inhaler IH Q4H PRN 07/01/18 Sulfamethoxazole/Trimethoprim [Bactrim DS -] 1 each PO BID #8 tablet 10/13/19 Albuterol Sulfate Inhaler - [Ventolin HFA Inhaler -] 2 puff IH Q4H PRN #1 inhaler 10/23/19 Escitalopram Oxalate [Lexapro -] 20 mg PO DAILY #30 tablet 10/23/19 traZODone HCL [Desyrel -] 50 mg PO HS #30 tablet 10/23/19 - Medication-Assisted Treatment (MAT) Medication-Assisted Treatment (MAT): No - Discharge Instructions Diet, activity, other medical instructions: Diet:Regular Activity: oob ad alib Other medical instructions:Follow up with [facility] aftercare recommendation as scheduled. Reminded pt to follow up with his primary care provider at [place], [place] for medical management. - Diagnosis (1) Alcohol use disorder Status: Chronic (2) Cocaine dependence, uncomplicated Status: Chronic (3) Asthma Status: Chronic Qualifiers: Asthma severity: unspecified severity Asthma persistence: unspecified Asthma complication type: unspecified Qualified Code(s): J45.909 - Unspecified asthma, uncomplicated (4) Chronic low back pain Status: Chronic Qualifiers: Back pain laterality: unspecified (5) History of syphilis Status: Chronic (6) IVDU (intravenous drug user) Status: Chronic (7) Methadone maintenance therapy patient Status: Chronic (8) Nicotine dependence Status: Chronic Qualifiers: Nicotine product type: cigarettes Substance use status: uncomplicated Qualified Code(s): F17.210 - Nicotine dependence, cigarettes, uncomplicated (9) Hepatitis C Status: Resolved Qualifiers: Viral hepatitis chronicity: chronic Hepatic coma status: without hepatic coma Qualified Code(s): B18.2 - Chronic viral hepatitis C (10) History of head and neck cancer Status: Resolved (11) Sedative dependence Status: Chronic - Follow-up Referral Minutes to complete discharge: 25 - AMA Did Patient Leave Against Medical Advice: No
== END 2019-10-24 09:20 | disposition home or self-care (01) | DRG 895 ==
LOC: YASAS 13:06 → Y3W 13:07
PROVIDERS: ADMIT Allergy & Immunology; ATTEND Allergy & Immunology
PROC: HZ42ZZZ Group Counseling for Substance Abuse Treatment, Cognitive-Behavioral (ICD-10-PCS; principal; 2019-10-13)
DX: F10.20 Alcohol dependence, uncomplicated (principal); F11.20 Opioid dependence, uncomplicated; F14.20 Cocaine dependence, uncomplicated; F13.20 Sedative, hypnotic or anxiolytic dependence, uncomplicated; F19.280 Other psychoactive substance dependence with psychoactive substance-induced anxiety disorder; F19.282 Other psychoactive substance dependence with psychoactive substance-induced sleep disorder; F17.210 Nicotine dependence, cigarettes, uncomplicated; F32.9 Major depressive disorder, single episode, unspecified; F41.8 Other specified anxiety disorders; J45.909 Unspecified asthma, uncomplicated; K21.9 Gastro-esophageal reflux disease without esophagitis; M54.5 Low back pain; G89.29 Other chronic pain; B18.2 Chronic viral hepatitis C; Z62.810 Personal history of physical and sexual abuse in childhood; Z85.818 Personal history of malignant neoplasm of other sites of lip, oral cavity, and pharynx; Z86.19 Personal history of other infectious and parasitic diseases; Z56.0 Unemployment, unspecified

== ENCOUNTER 2020-01-15 13:13 | Inpatient (IN) | payer OTHER ==
[2020-01-15 14:21] VITALS: BMI 25.4
[2020-01-15] MEDS ORDERED: ALBUTEROL SO4 HFA INHALER IH PRN (15:07)
[2020-01-15] MEDS ORDERED: ONDANSETRON *ODT* 4 MG TABLET SL PRN (15:09)
[2020-01-15] MEDS ORDERED: NICOTINE POLACRILEX 2 MG GUM BUC PRN (15:09)
[2020-01-15] MEDS ORDERED: METHOCARBAMOL 500 MG TABLET PO PRN (15:09)
[2020-01-15] MEDS ORDERED: MAGNESIUM CITRATE 300 ML BOTTLE PO PRN (15:09)
[2020-01-15] MEDS ORDERED: MENTHOL/PHENOL 1 EACH UD MM PRN (15:09)
[2020-01-15] MEDS ORDERED: MAGNESIUM HYDROX 2400MG/30ML ORAL SUSPENSION 30 ML CUP PO PRN (15:09)
[2020-01-15] MEDS ORDERED: ACETAMINOPHEN 325 MG TABLET (FP) PO PRN ×2 (15:09)
[2020-01-15] MEDS ORDERED: BISMUTH SUBSALICYLATE 262 MG/15 ML BTL PO PRN (15:09)
[2020-01-15] MEDS ORDERED: chlordiazePOXIDE HCL 25 MG CAPSULE PO PRN (15:09)
[2020-01-15] MEDS ORDERED: IBUPROFEN 400 MG TABLET (FP) PO PRN (15:09)
[2020-01-15] MEDS: NICOTINE 14 MG/24 HOURS TOPICAL PATCH TD SCH (15:49)
[2020-01-15] MEDS: MAG HYDROX/AL HYDROX/SIMETH 30 ML UNIT-DOSE CUP PO PRN ×2 (16:30→22:05)
[2020-01-15 16:59] LABS: HEMATOCRIT 30.5 % (35.4-49); HEMOGLOBIN 10.4 GM/dL (11.7-16.9); MCH 28.6 pg (25.7-33.7); MCHC 34.2 g/dl (32.0-35.9); MEAN CELL VOLUME 83.6 fl (80-96); MEAN PLT VOLUME 8.2 fl (7.5-11.1); PLATELET COUNT 207 K/MM3 (134-434); RBC 3.65 M/mm3 (4.00-5.60); RDW 14.8 % (11.9-15.9); WHITE BLOOD COUNT 3.8 K/mm3 (4.0-10.0)
[2020-01-15 17:00] LABS: POTASSIUM 4.6 mmol/L (3.5-5.1)
[2020-01-15 17:03] LABS: ALBUMIN 3.9 g/dl (3.4-5.0); BLOOD UREA NITROGEN 21.3 mg/dL (7-18); CALCIUM 9.3 mg/dL (8.5-10.1)
[2020-01-15 17:07] LABS: CREATININE 1.3 mg/dL (0.55-1.3)
[2020-01-15 17:08] LABS: BILIRUBIN,TOTAL 0.7 mg/dL (0.2-1); TOT PROT 8.1 g/dl (6.4-8.2)
[2020-01-15] MEDS: chlordiazePOXIDE HCL 25 MG CAPSULE PO SCH ×2 (18:13→22:01)
[2020-01-15] MEDS: hydrOXYzine PAMOATE 25 MG CAPSULE (FP) PO SCH ×2 (18:53→22:12)
[2020-01-15] MEDS: THIAMINE HCL 100 MG TABLET (FP) PO SCH (22:01)
[2020-01-15] MEDS: MELATONIN 5 MG TABLETS PO SCH (22:12)
[2020-01-16] MEDS: chlordiazePOXIDE HCL 25 MG CAPSULE PO SCH ×4 (06:06→22:10)
[2020-01-16] MEDS: hydrOXYzine PAMOATE 25 MG CAPSULE (FP) PO SCH ×6 (06:07→22:00)
[2020-01-16] MEDS ORDERED: METHADONE HCL 10 MG TABLET PO ONE (08:41)
[2020-01-16] MEDS ORDERED: METHADONE 80 MG, METHADONE 30 MG PO ONE (08:50)
[2020-01-16] MEDS ORDERED: METHADONE HCL 10 MG TABLET ONE (09:16)
[2020-01-16] MEDS ORDERED: METHADONE HCL 40 MG DISPERSABLE TABLET ONE (09:16)
[2020-01-16] MEDS: ESCITALOPRAM OXALATE 20 MG TABLET PO SCH (10:14)
[2020-01-16] MEDS: PRENATAL VITAMINS W/ FOLIC ACID TABLET (FP) PO SCH (10:15)
[2020-01-16] MEDS: NICOTINE 14 MG/24 HOURS TOPICAL PATCH TD SCH (10:18)
[2020-01-16] MEDS: MAG HYDROX/AL HYDROX/SIMETH 30 ML UNIT-DOSE CUP PO PRN (11:18)
[2020-01-16] MEDS ORDERED: MASKS NR ONE (12:07)
[2020-01-16] MEDS: traZODone HCL 50 MG TABLET (FP) PO SCH (22:11)
[2020-01-16] MEDS: MELATONIN 5 MG TABLETS PO SCH (22:11)
[2020-01-16] MEDS: THIAMINE HCL 100 MG TABLET (FP) PO SCH (22:11)
[2020-01-17] MEDS ORDERED: METHADONE HCL 10 MG TABLET ONE (04:01)
[2020-01-17] MEDS ORDERED: METHADONE HCL 40 MG DISPERSABLE TABLET ONE (04:01)
[2020-01-17] MEDS ORDERED: METHADONE HCL 40 MG DISPERSABLE TABLET PO SCH (06:00)
[2020-01-17] MEDS: METHADONE 80 MG, METHADONE 30 MG PO SCH (06:20)
[2020-01-17] MEDS: chlordiazePOXIDE HCL 25 MG CAPSULE PO SCH ×4 (06:22→22:01)
[2020-01-17] MEDS: hydrOXYzine PAMOATE 25 MG CAPSULE (FP) PO SCH ×5 (06:22→22:01)
[2020-01-17] MEDS: NICOTINE 14 MG/24 HOURS TOPICAL PATCH TD SCH (10:31)
[2020-01-17] MEDS: ESCITALOPRAM OXALATE 20 MG TABLET PO SCH (10:31)
[2020-01-17] MEDS: PRENATAL VITAMINS W/ FOLIC ACID TABLET (FP) PO SCH (10:31)
[2020-01-17 10:41] LABS: HEMOGLOBIN 9.9 GM/dL (11.7-16.9); MCH 27.9 pg (25.7-33.7); MCHC 32.8 g/dl (32.0-35.9); MEAN CELL VOLUME 85.1 fl (80-96); RBC 3.53 M/mm3 (4.00-5.60); RDW 14.8 % (11.9-15.9); WHITE BLOOD COUNT 4.1 K/mm3 (4.0-10.0)
[2020-01-17] MEDS ORDERED: FLU VACCINE (FLULAVAL) PF 60 MCG/0.5 ML SYRINGE 2020-2021 IM ONE (12:00)
[2020-01-17] MEDS: MAG HYDROX/AL HYDROX/SIMETH 30 ML UNIT-DOSE CUP PO PRN (18:08)
[2020-01-17] MEDS: traZODone HCL 50 MG TABLET (FP) PO SCH (22:01)
[2020-01-17] MEDS: THIAMINE HCL 100 MG TABLET (FP) PO SCH (22:01)
[2020-01-17] MEDS: MELATONIN 5 MG TABLETS PO SCH (23:39)
[2020-01-18] MEDS ORDERED: chlordiazePOXIDE HCL 10 MG CAPSULE PO PRN
[2020-01-18] MEDS ORDERED: METHADONE HCL 40 MG DISPERSABLE TABLET ONE (04:00)
[2020-01-18] MEDS ORDERED: METHADONE HCL 10 MG TABLET ONE (04:00)
[2020-01-18] MEDS: METHADONE 80 MG, METHADONE 30 MG PO SCH (05:22)
[2020-01-18] MEDS: chlordiazePOXIDE HCL 10 MG CAPSULE PO SCH ×4 (05:22→22:03)
[2020-01-18] MEDS: hydrOXYzine PAMOATE 25 MG CAPSULE (FP) PO SCH ×5 (08:03→22:03)
[2020-01-18] MEDS: ESCITALOPRAM OXALATE 20 MG TABLET PO SCH (10:00)
[2020-01-18] MEDS: PRENATAL VITAMINS W/ FOLIC ACID TABLET (FP) PO SCH (10:00)
[2020-01-18] MEDS: NICOTINE 14 MG/24 HOURS TOPICAL PATCH TD SCH (10:00)
[2020-01-18] MEDS: MAG HYDROX/AL HYDROX/SIMETH 30 ML UNIT-DOSE CUP PO PRN (10:02)
[2020-01-18] MEDS: FERROUS SO4 325 MG TABLET (FP) PO SCH (17:17)
[2020-01-18 21:05] VITALS: TEMP 97.3
[2020-01-18] MEDS: MELATONIN 5 MG TABLETS PO SCH (22:04)
[2020-01-18] MEDS: traZODone HCL 50 MG TABLET (FP) PO SCH (22:04)
[2020-01-18] MEDS: THIAMINE HCL 100 MG TABLET (FP) PO SCH (22:04)
[2020-01-19] MEDS ORDERED: METHADONE HCL 10 MG TABLET ONE (03:51)
[2020-01-19] MEDS ORDERED: METHADONE HCL 40 MG DISPERSABLE TABLET ONE (03:51)
[2020-01-19] MEDS ORDERED: chlordiazePOXIDE HCL 10 MG CAPSULE PO SCH (05:00)
[2020-01-19 05:57] VITALS: BP 115/78; PULSE 79
[2020-01-19] MEDS: hydrOXYzine PAMOATE 25 MG CAPSULE (FP) PO SCH (06:57)
[2020-01-19] MEDS: METHADONE 80 MG, METHADONE 30 MG PO SCH (06:57)
[2020-01-19] MEDS: FERROUS SO4 325 MG TABLET (FP) PO SCH (07:07)
[2020-01-20] MEDS ORDERED: chlordiazePOXIDE HCL 10 MG CAPSULE PO ONE (05:00)
== END 2020-01-19 08:48 | disposition home or self-care (01) | DRG 897 ==
LOC: YASAS 13:13 → Y6N 15:23
PROVIDERS: ADMIT Allergy & Immunology; ATTEND Allergy & Immunology
PROC: HZ2ZZZZ Detoxification Services for Substance Abuse Treatment (ICD-10-PCS; principal; 2020-01-15)
DX: F10.230 Alcohol dependence with withdrawal, uncomplicated (principal); F11.20 Opioid dependence, uncomplicated; F14.20 Cocaine dependence, uncomplicated; F19.280 Other psychoactive substance dependence with psychoactive substance-induced anxiety disorder; F19.282 Other psychoactive substance dependence with psychoactive substance-induced sleep disorder; F13.230 Sedative, hypnotic or anxiolytic dependence with withdrawal, uncomplicated; F17.210 Nicotine dependence, cigarettes, uncomplicated; F19.24 Other psychoactive substance dependence with psychoactive substance-induced mood disorder; J45.909 Unspecified asthma, uncomplicated; B18.2 Chronic viral hepatitis C; M54.5 Low back pain; Z86.19 Personal history of other infectious and parasitic diseases; Z85.89 Personal history of malignant neoplasm of other organs and systems
CPT/HCPCS: 36415; 80053; 85027; 86593; 86780; C9803; G0008; Q2036; U0003

== ENCOUNTER 2020-04-25 10:20 | Inpatient (IN) | payer OTHER ==
[2020-04-25 11:17] VITALS: BMI 27.6
[2020-04-25] MEDS ORDERED: ONDANSETRON *ODT* 4 MG TABLET SL PRN (15:22)
[2020-04-25] MEDS ORDERED: ACETAMINOPHEN 325 MG TABLET (FP) PO PRN ×2 (15:22)
[2020-04-25] MEDS ORDERED: IBUPROFEN 400 MG TABLET (FP) PO PRN (15:22)
[2020-04-25] MEDS ORDERED: MENTHOL/PHENOL 1 EACH UD MM PRN (15:22)
[2020-04-25] MEDS ORDERED: cloNIDine HCL 0.1 MG TABLET PO PRN (15:22)
[2020-04-25] MEDS ORDERED: BISMUTH SUBSALICYLATE 524 MG/30 ML UD PO PRN (15:22)
[2020-04-25] MEDS ORDERED: NICOTINE POLACRILEX 2 MG GUM BUC PRN (15:22)
[2020-04-25] MEDS ORDERED: MAGNESIUM HYDROX 2400MG/30ML ORAL SUSPENSION 30 ML CUP PO PRN (15:22)
[2020-04-25] MEDS ORDERED: MAGNESIUM CITRATE 300 ML BOTTLE PO PRN (15:22)
[2020-04-25] MEDS ORDERED: ALBUTEROL SO4 HFA INHALER IH PRN (15:24)
[2020-04-25] MEDS ORDERED: METHADONE HCL 10 MG TABLET (FOR DETOX USE ONLY) PO ONE (15:45)
[2020-04-25 17:33] LABS: HEMATOCRIT 33.5 % (35.4-49); HEMOGLOBIN 11.3 GM/dL (11.7-16.9); MCH 28.5 pg (25.7-33.7); MCHC 33.8 g/dl (32.0-35.9); MEAN CELL VOLUME 84.4 fl (80-96); MEAN PLT VOLUME 7.7 fl (7.5-11.1); PLATELET COUNT 222 K/MM3 (134-434); RBC 3.97 M/mm3 (4.00-5.60); RDW 15.2 % (11.9-15.9); WHITE BLOOD COUNT 4.5 K/mm3 (4.0-10.0)
[2020-04-25 17:34] LABS: POTASSIUM 4.2 mmol/L (3.5-5.1)
[2020-04-25 17:36] LABS: CALCIUM 9.6 mg/dL (8.5-10.1)
[2020-04-25 17:37] LABS: ALBUMIN 3.8 g/dl (3.4-5.0)
[2020-04-25 17:40] LABS: CREATININE 1.1 mg/dL (0.55-1.3)
[2020-04-25 17:42] LABS: BILIRUBIN,TOTAL 0.4 mg/dL (0.2-1); TOT PROT 7.8 g/dl (6.4-8.2)
[2020-04-25] MEDS: PRENATAL VITAMINS W/ FOLIC ACID TABLET (FP) PO SCH (17:48)
[2020-04-25] MEDS: hydrOXYzine PAMOATE 25 MG CAPSULE (FP) PO SCH ×2 (17:48→21:32)
[2020-04-25] MEDS: MAG HYDROX/AL HYDROX/SIMETH 30 ML UNIT-DOSE CUP PO PRN ×2 (19:00→23:51)
[2020-04-25] MEDS: THIAMINE HCL 100 MG TABLET (FP) PO SCH (21:32)
[2020-04-25] MEDS: MELATONIN 5 MG TABLETS PO SCH (21:32)
[2020-04-25] MEDS: METHOCARBAMOL 500 MG TABLET PO PRN (21:32)
[2020-04-26] MEDS: hydrOXYzine PAMOATE 25 MG CAPSULE (FP) PO SCH ×2 (07:10→10:22)
[2020-04-26] MEDS ORDERED: METHADONE HCL 40 MG DISPERSABLE TABLET PO ONE (09:45)
[2020-04-26] MEDS ORDERED: METHADONE (DETOX) 20 MG, METHADONE (DETOX) 5 MG PO ONE (10:00)
[2020-04-26] MEDS ORDERED: FAMOTIDINE 20 MG TABLET PO SCH (10:00)
[2020-04-26] MEDS: ESCITALOPRAM OXALATE 20 MG TABLET PO SCH (10:21)
[2020-04-26] MEDS: PRENATAL VITAMINS W/ FOLIC ACID TABLET (FP) PO SCH (10:21)
[2020-04-26] MEDS: NICOTINE 14 MG/24 HOURS TOPICAL PATCH TD SCH (10:22)
[2020-04-26] MEDS: LEVOTHYROXINE NA 100 MCG TABLET (FP) PO SCH (11:58)
[2020-04-26] MEDS: FAMOTIDINE 20 MG TABLET PO SCH ×2 (14:02→21:43)
[2020-04-26] MEDS ORDERED: PT OWN MED DRAWER 7, Y5N ONE (21:43)
[2020-04-26] MEDS: MELATONIN 5 MG TABLETS PO SCH (21:43)
[2020-04-26] MEDS: traZODone HCL 100 MG TABLET (FP) PO SCH (21:43)
[2020-04-26] MEDS: MAG HYDROX/AL HYDROX/SIMETH 30 ML UNIT-DOSE CUP PO PRN (21:43)
[2020-04-26] MEDS: THIAMINE HCL 100 MG TABLET (FP) PO SCH (21:43)
[2020-04-26] MEDS: SENNOSIDES 8.6MG TABLET (FP) PO SCH (21:44)
[2020-04-26] MEDS ORDERED: SENNOSIDES 8.6MG TABLET (FP) PO SCH (22:00)
[2020-04-26] MEDS ORDERED: FLUTICASONE PROP 0.05% 16 GM NASAL SPRAY NS SCH (22:00)
[2020-04-26] MEDS: FLUTICASONE PROP 0.05% 16 GM NASAL SPRAY NS SCH (22:34)
[2020-04-27] MEDS: METHADONE HCL 40 MG DISPERSABLE TABLET PO SCH (05:34)
[2020-04-27] MEDS: LEVOTHYROXINE NA 100 MCG TABLET (FP) PO SCH (05:59)
[2020-04-27] MEDS ORDERED: METHADONE HCL 10 MG TABLET (FOR DETOX USE ONLY) PO ONE (10:00)
[2020-04-27] MEDS: PRENATAL VITAMINS W/ FOLIC ACID TABLET (FP) PO SCH (10:27)
[2020-04-27] MEDS: FLUTICASONE PROP 0.05% 16 GM NASAL SPRAY NS SCH ×2 (10:27→21:49)
[2020-04-27] MEDS: NICOTINE 14 MG/24 HOURS TOPICAL PATCH TD SCH (10:28)
[2020-04-27] MEDS: FAMOTIDINE 20 MG TABLET PO SCH ×2 (10:28→21:50)
[2020-04-27] MEDS: ESCITALOPRAM OXALATE 20 MG TABLET PO SCH (10:28)
[2020-04-27] MEDS: traZODone HCL 100 MG TABLET (FP) PO SCH (21:49)
[2020-04-27] MEDS: hydrOXYzine PAMOATE 25 MG CAPSULE (FP) PO PRN (21:49)
[2020-04-27] MEDS: METHOCARBAMOL 500 MG TABLET PO PRN (21:50)
[2020-04-27] MEDS: MELATONIN 5 MG TABLETS PO SCH (21:50)
[2020-04-27] MEDS: SENNOSIDES 8.6MG TABLET (FP) PO SCH (21:50)
[2020-04-27] MEDS: THIAMINE HCL 100 MG TABLET (FP) PO SCH (21:50)
[2020-04-28] MEDS: LEVOTHYROXINE NA 100 MCG TABLET (FP) PO SCH (06:09)
[2020-04-28] MEDS: METHADONE HCL 40 MG DISPERSABLE TABLET PO SCH (06:09)
[2020-04-28] MEDS ORDERED: METHADONE (DETOX) 10 MG, METHADONE (DETOX) 5 MG PO ONE (10:00)
[2020-04-28] MEDS: FAMOTIDINE 20 MG TABLET PO SCH ×2 (10:11→21:12)
[2020-04-28] MEDS: NICOTINE 14 MG/24 HOURS TOPICAL PATCH TD SCH (10:11)
[2020-04-28] MEDS: hydrOXYzine PAMOATE 25 MG CAPSULE (FP) PO PRN ×2 (10:11→21:12)
[2020-04-28] MEDS: PRENATAL VITAMINS W/ FOLIC ACID TABLET (FP) PO SCH (10:11)
[2020-04-28] MEDS: FLUTICASONE PROP 0.05% 16 GM NASAL SPRAY NS SCH ×2 (10:11→21:12)
[2020-04-28] MEDS: ESCITALOPRAM OXALATE 20 MG TABLET PO SCH (10:11)
[2020-04-28] MEDS: METHOCARBAMOL 500 MG TABLET PO PRN (21:11)
[2020-04-28] MEDS: THIAMINE HCL 100 MG TABLET (FP) PO SCH (21:11)
[2020-04-28] MEDS: SENNOSIDES 8.6MG TABLET (FP) PO SCH (21:11)
[2020-04-28] MEDS: traZODone HCL 100 MG TABLET (FP) PO SCH (21:12)
[2020-04-28] MEDS: MELATONIN 5 MG TABLETS PO SCH (21:12)
[2020-04-29] MEDS ORDERED: PT OWN MED DRAWER 7, Y5N ONE (03:26)
[2020-04-29] MEDS: METHADONE HCL 40 MG DISPERSABLE TABLET PO SCH (06:24)
[2020-04-29] MEDS: LEVOTHYROXINE NA 100 MCG TABLET (FP) PO SCH (06:24)
[2020-04-29] MEDS ORDERED: METHADONE HCL 10 MG TABLET (FOR DETOX USE ONLY) PO ONE (10:00)
[2020-04-29] MEDS: PRENATAL VITAMINS W/ FOLIC ACID TABLET (FP) PO SCH (10:03)
[2020-04-29] MEDS: NICOTINE 14 MG/24 HOURS TOPICAL PATCH TD SCH (10:04)
[2020-04-29] MEDS: FAMOTIDINE 20 MG TABLET PO SCH ×2 (10:04→21:44)
[2020-04-29] MEDS: ESCITALOPRAM OXALATE 20 MG TABLET PO SCH (10:04)
[2020-04-29] MEDS: FLUTICASONE PROP 0.05% 16 GM NASAL SPRAY NS SCH ×2 (10:05→21:45)
[2020-04-29] MEDS: THIAMINE HCL 100 MG TABLET (FP) PO SCH (21:44)
[2020-04-29] MEDS: traZODone HCL 100 MG TABLET (FP) PO SCH (21:44)
[2020-04-29] MEDS: MELATONIN 5 MG TABLETS PO SCH (21:47)
[2020-04-29] MEDS: SENNOSIDES 8.6MG TABLET (FP) PO SCH (21:52)
[2020-04-30] MEDS ORDERED: METHADONE HCL 5 MG TABLET (FOR DETOX USE ONLY) PO ONE (06:00)
[2020-04-30] MEDS: METHADONE HCL 40 MG DISPERSABLE TABLET PO SCH (06:17)
[2020-04-30] MEDS: LEVOTHYROXINE NA 100 MCG TABLET (FP) PO SCH (07:13)
[2020-04-30] MEDS: ESCITALOPRAM OXALATE 20 MG TABLET PO SCH (09:54)
[2020-04-30] MEDS: PRENATAL VITAMINS W/ FOLIC ACID TABLET (FP) PO SCH (09:54)
[2020-04-30] MEDS: FLUTICASONE PROP 0.05% 16 GM NASAL SPRAY NS SCH ×2 (09:55→21:32)
[2020-04-30] MEDS: FAMOTIDINE 20 MG TABLET PO SCH ×2 (09:55→21:26)
[2020-04-30] MEDS: NICOTINE 14 MG/24 HOURS TOPICAL PATCH TD SCH (09:55)
[2020-04-30] MEDS: MELATONIN 5 MG TABLETS PO SCH (21:26)
[2020-04-30] MEDS: SENNOSIDES 8.6MG TABLET (FP) PO SCH (21:26)
[2020-04-30] MEDS: traZODone HCL 100 MG TABLET (FP) PO SCH (21:26)
[2020-04-30] MEDS: THIAMINE HCL 100 MG TABLET (FP) PO SCH (21:26)
[2020-05-01] MEDS: METHADONE HCL 40 MG DISPERSABLE TABLET PO SCH (05:56)
[2020-05-01] MEDS: LEVOTHYROXINE NA 100 MCG TABLET (FP) PO SCH (06:02)
[2020-05-01] MEDS: NICOTINE 14 MG/24 HOURS TOPICAL PATCH TD SCH (09:57)
[2020-05-01] MEDS: FLUTICASONE PROP 0.05% 16 GM NASAL SPRAY NS SCH ×2 (09:57→21:23)
[2020-05-01] MEDS: PRENATAL VITAMINS W/ FOLIC ACID TABLET (FP) PO SCH (09:57)
[2020-05-01] MEDS: ESCITALOPRAM OXALATE 20 MG TABLET PO SCH (09:58)
[2020-05-01] MEDS: FAMOTIDINE 20 MG TABLET PO SCH ×2 (10:00→21:22)
[2020-05-01] MEDS ORDERED: PT OWN MED DRAWER 7, Y5N ONE ×2 (20:50→21:23)
[2020-05-01] MEDS: traZODone HCL 100 MG TABLET (FP) PO SCH (21:22)
[2020-05-01] MEDS: THIAMINE HCL 100 MG TABLET (FP) PO SCH (21:22)
[2020-05-01] MEDS: SENNOSIDES 8.6MG TABLET (FP) PO SCH (21:22)
[2020-05-01] MEDS: MELATONIN 5 MG TABLETS PO SCH (21:23)
[2020-05-02] MEDS: METHADONE HCL 40 MG DISPERSABLE TABLET PO SCH (06:11)
[2020-05-02] MEDS ORDERED: PT OWN MED DRAWER 7, Y5N ONE (06:13)
[2020-05-02] MEDS: LEVOTHYROXINE NA 100 MCG TABLET (FP) PO SCH (06:14)
[2020-05-02] MEDS: ESCITALOPRAM OXALATE 20 MG TABLET PO SCH (10:16)
[2020-05-02] MEDS: FAMOTIDINE 20 MG TABLET PO SCH ×2 (10:17→21:46)
[2020-05-02] MEDS: PRENATAL VITAMINS W/ FOLIC ACID TABLET (FP) PO SCH (10:17)
[2020-05-02] MEDS: NICOTINE 14 MG/24 HOURS TOPICAL PATCH TD SCH (10:17)
[2020-05-02] MEDS: FLUTICASONE PROP 0.05% 16 GM NASAL SPRAY NS SCH ×2 (10:17→21:45)
[2020-05-02] MEDS: SENNOSIDES 8.6MG TABLET (FP) PO SCH (21:45)
[2020-05-02] MEDS: MELATONIN 5 MG TABLETS PO SCH (21:45)
[2020-05-02] MEDS: THIAMINE HCL 100 MG TABLET (FP) PO SCH (21:45)
[2020-05-02] MEDS: traZODone HCL 100 MG TABLET (FP) PO SCH (21:45)
[2020-05-03] MEDS: METHADONE HCL 40 MG DISPERSABLE TABLET PO SCH (06:05)
[2020-05-03] MEDS: LEVOTHYROXINE NA 100 MCG TABLET (FP) PO SCH (06:05)
[2020-05-03] MEDS: FLUTICASONE PROP 0.05% 16 GM NASAL SPRAY NS SCH ×2 (09:46→21:36)
[2020-05-03] MEDS: NICOTINE 14 MG/24 HOURS TOPICAL PATCH TD SCH (09:47)
[2020-05-03] MEDS: ESCITALOPRAM OXALATE 20 MG TABLET PO SCH (09:47)
[2020-05-03] MEDS: FAMOTIDINE 20 MG TABLET PO SCH ×2 (09:47→21:37)
[2020-05-03] MEDS: PRENATAL VITAMINS W/ FOLIC ACID TABLET (FP) PO SCH (09:47)
[2020-05-03] MEDS: THIAMINE HCL 100 MG TABLET (FP) PO SCH (21:37)
[2020-05-03] MEDS: SENNOSIDES 8.6MG TABLET (FP) PO SCH (21:37)
[2020-05-03] MEDS: MELATONIN 5 MG TABLETS PO SCH (21:37)
[2020-05-03] MEDS: traZODone HCL 100 MG TABLET (FP) PO SCH (21:37)
[2020-05-04] MEDS: METHADONE HCL 40 MG DISPERSABLE TABLET PO SCH (06:26)
[2020-05-04] MEDS: LEVOTHYROXINE NA 100 MCG TABLET (FP) PO SCH (06:27)
[2020-05-04] MEDS: FLUTICASONE PROP 0.05% 16 GM NASAL SPRAY NS SCH ×2 (10:21→23:18)
[2020-05-04] MEDS: FAMOTIDINE 20 MG TABLET PO SCH ×2 (10:21→21:42)
[2020-05-04] MEDS: PRENATAL VITAMINS W/ FOLIC ACID TABLET (FP) PO SCH (10:21)
[2020-05-04] MEDS: ESCITALOPRAM OXALATE 20 MG TABLET PO SCH (10:21)
[2020-05-04] MEDS: NICOTINE 14 MG/24 HOURS TOPICAL PATCH TD SCH (10:21)
[2020-05-04] MEDS: traZODone HCL 100 MG TABLET (FP) PO SCH (21:39)
[2020-05-04] MEDS: MELATONIN 5 MG TABLETS PO SCH (21:40)
[2020-05-04] MEDS: THIAMINE HCL 100 MG TABLET (FP) PO SCH (21:41)
[2020-05-04] MEDS: SENNOSIDES 8.6MG TABLET (FP) PO SCH (21:41)
[2020-05-05] MEDS: METHADONE HCL 40 MG DISPERSABLE TABLET PO SCH (06:09)
[2020-05-05] MEDS: LEVOTHYROXINE NA 100 MCG TABLET (FP) PO SCH (06:10)
[2020-05-05] MEDS: ESCITALOPRAM OXALATE 20 MG TABLET PO SCH (10:19)
[2020-05-05] MEDS: FLUTICASONE PROP 0.05% 16 GM NASAL SPRAY NS SCH ×2 (10:19→21:38)
[2020-05-05] MEDS: FAMOTIDINE 20 MG TABLET PO SCH ×2 (10:19→21:39)
[2020-05-05] MEDS: NICOTINE 14 MG/24 HOURS TOPICAL PATCH TD SCH (10:19)
[2020-05-05] MEDS: PRENATAL VITAMINS W/ FOLIC ACID TABLET (FP) PO SCH (10:20)
[2020-05-05] MEDS: traZODone HCL 100 MG TABLET (FP) PO SCH (21:38)
[2020-05-05] MEDS: MELATONIN 5 MG TABLETS PO SCH (21:39)
[2020-05-05] MEDS: SENNOSIDES 8.6MG TABLET (FP) PO SCH (21:39)
[2020-05-05] MEDS: THIAMINE HCL 100 MG TABLET (FP) PO SCH (21:39)
[2020-05-05] MEDS: hydrOXYzine PAMOATE 25 MG CAPSULE (FP) PO PRN (21:39)
[2020-05-06] MEDS: METHADONE HCL 40 MG DISPERSABLE TABLET PO SCH (05:47)
[2020-05-06] MEDS: LEVOTHYROXINE NA 100 MCG TABLET (FP) PO SCH (07:09)
[2020-05-06] MEDS: ESCITALOPRAM OXALATE 20 MG TABLET PO SCH (10:31)
[2020-05-06] MEDS: FLUTICASONE PROP 0.05% 16 GM NASAL SPRAY NS SCH ×2 (10:31→21:32)
[2020-05-06] MEDS: PRENATAL VITAMINS W/ FOLIC ACID TABLET (FP) PO SCH (10:31)
[2020-05-06] MEDS: NICOTINE 14 MG/24 HOURS TOPICAL PATCH TD SCH (10:31)
[2020-05-06] MEDS: FAMOTIDINE 20 MG TABLET PO SCH ×2 (10:32→21:33)
[2020-05-06] MEDS: traZODone HCL 100 MG TABLET (FP) PO SCH (21:32)
[2020-05-06] MEDS: SENNOSIDES 8.6MG TABLET (FP) PO SCH (21:32)
[2020-05-06] MEDS: MELATONIN 5 MG TABLETS PO SCH (21:32)
[2020-05-06] MEDS: hydrOXYzine PAMOATE 25 MG CAPSULE (FP) PO PRN (21:32)
[2020-05-06] MEDS: THIAMINE HCL 100 MG TABLET (FP) PO SCH (21:32)
[2020-05-07] MEDS: METHADONE HCL 40 MG DISPERSABLE TABLET PO SCH (06:20)
[2020-05-07] MEDS: LEVOTHYROXINE NA 100 MCG TABLET (FP) PO SCH (06:20)
[2020-05-07] MEDS: FLUTICASONE PROP 0.05% 16 GM NASAL SPRAY NS SCH ×2 (10:23→21:55)
[2020-05-07] MEDS: ESCITALOPRAM OXALATE 20 MG TABLET PO SCH (10:23)
[2020-05-07] MEDS: PRENATAL VITAMINS W/ FOLIC ACID TABLET (FP) PO SCH (10:23)
[2020-05-07] MEDS: NICOTINE 14 MG/24 HOURS TOPICAL PATCH TD SCH (10:24)
[2020-05-07] MEDS: FAMOTIDINE 20 MG TABLET PO SCH ×2 (10:24→21:56)
[2020-05-07] MEDS: SENNOSIDES 8.6MG TABLET (FP) PO SCH (21:55)
[2020-05-07] MEDS: traZODone HCL 100 MG TABLET (FP) PO SCH (21:55)
[2020-05-07] MEDS: MELATONIN 5 MG TABLETS PO SCH (21:55)
[2020-05-07] MEDS: THIAMINE HCL 100 MG TABLET (FP) PO SCH (21:56)
[2020-05-08] MEDS: LEVOTHYROXINE NA 100 MCG TABLET (FP) PO SCH (06:12)
[2020-05-08] MEDS: METHADONE HCL 40 MG DISPERSABLE TABLET PO SCH (06:12)
[2020-05-08] MEDS: FAMOTIDINE 20 MG TABLET PO SCH ×2 (10:19→21:29)
[2020-05-08] MEDS: FLUTICASONE PROP 0.05% 16 GM NASAL SPRAY NS SCH ×2 (10:19→21:30)
[2020-05-08] MEDS: PRENATAL VITAMINS W/ FOLIC ACID TABLET (FP) PO SCH (10:19)
[2020-05-08] MEDS: ESCITALOPRAM OXALATE 20 MG TABLET PO SCH (10:19)
[2020-05-08] MEDS: NICOTINE 14 MG/24 HOURS TOPICAL PATCH TD SCH (10:19)
[2020-05-08] MEDS ORDERED: PT OWN MED DRAWER 7, Y5N ONE (20:09)
[2020-05-08] MEDS: SENNOSIDES 8.6MG TABLET (FP) PO SCH (21:29)
[2020-05-08] MEDS: THIAMINE HCL 100 MG TABLET (FP) PO SCH (21:29)
[2020-05-08] MEDS: traZODone HCL 100 MG TABLET (FP) PO SCH (21:29)
[2020-05-08] MEDS: MELATONIN 5 MG TABLETS PO SCH (21:30)
[2020-05-09] MEDS: LEVOTHYROXINE NA 100 MCG TABLET (FP) PO SCH (06:16)
[2020-05-09] MEDS: METHADONE HCL 40 MG DISPERSABLE TABLET PO SCH (06:16)
[2020-05-09 07:23] VITALS: BP 101/58; PULSE 90; TEMP 98.6
== END 2020-05-09 08:35 | disposition home or self-care (01) | DRG 895 ==
LOC: YASAS 10:20 → Y5N 15:54
PROVIDERS: ADMIT Allergy & Immunology; ATTEND Allergy & Immunology
PROC: HZ42ZZZ Group Counseling for Substance Abuse Treatment, Cognitive-Behavioral (ICD-10-PCS; principal; 2020-04-25)
DX: F10.20 Alcohol dependence, uncomplicated (principal); F11.20 Opioid dependence, uncomplicated; F13.20 Sedative, hypnotic or anxiolytic dependence, uncomplicated; F14.20 Cocaine dependence, uncomplicated; F19.280 Other psychoactive substance dependence with psychoactive substance-induced anxiety disorder; F17.210 Nicotine dependence, cigarettes, uncomplicated; F41.9 Anxiety disorder, unspecified; F32.9 Major depressive disorder, single episode, unspecified; J45.909 Unspecified asthma, uncomplicated; E03.9 Hypothyroidism, unspecified; B18.2 Chronic viral hepatitis C; M54.5 Low back pain; G89.29 Other chronic pain; Z62.810 Personal history of physical and sexual abuse in childhood; Z85.819 Personal history of malignant neoplasm of unspecified site of lip, oral cavity, and pharynx; Z86.19 Personal history of other infectious and parasitic diseases; Z59.0 Homelessness
CPT/HCPCS: 36415; 80053; 85027; 86593; 86780; C9803; U0003

== ENCOUNTER 2020-09-25 10:48 | Inpatient (IN) | payer OTHER ==
[2020-09-25] MEDS ORDERED: MENTHOL/PHENOL 1 EACH UD MM PRN (14:20)
[2020-09-25] MEDS ORDERED: ONDANSETRON *ODT* 4 MG TABLET SL PRN (14:20)
[2020-09-25] MEDS ORDERED: MAGNESIUM HYDROX 2400MG/30ML ORAL SUSPENSION 30 ML CUP PO PRN (14:20)
[2020-09-25] MEDS ORDERED: MAG HYDROX/AL HYDROX/SIMETH 30 ML UNIT-DOSE CUP PO PRN (14:20)
[2020-09-25] MEDS ORDERED: METHOCARBAMOL 500 MG TABLET PO PRN (14:20)
[2020-09-25] MEDS ORDERED: IBUPROFEN 400 MG TABLET (FP) PO PRN (14:20)
[2020-09-25] MEDS ORDERED: LORazepam 1 MG TABLET PO PRN (14:20)
[2020-09-25] MEDS ORDERED: BISMUTH SUBSALICYLATE 524 MG/30 ML PO PRN (14:20)
[2020-09-25] MEDS ORDERED: MAGNESIUM CITRATE 300 ML BOTTLE PO PRN (14:20)
[2020-09-25] MEDS ORDERED: NICOTINE POLACRILEX 2 MG GUM BUC PRN (14:20)
[2020-09-25] MEDS ORDERED: ACETAMINOPHEN 325 MG TABLET (FP) PO PRN ×2 (14:20)
[2020-09-25 14:48] VITALS: BMI 25.0
[2020-09-25 15:39] LABS: HEMATOCRIT 31.1 % (35.4-49); HEMOGLOBIN 10.6 GM/dL (11.7-16.9); MCH 28.1 pg (25.7-33.7); MEAN CELL VOLUME 82.6 fl (80-96); MEAN PLT VOLUME 7.6 fl (7.5-11.1); PLATELET COUNT 194 10^3/uL (134-434); RBC 3.76 M/mm3 (4.00-5.60); RDW 14.5 % (11.9-15.9); WHITE BLOOD COUNT 4.3 K/mm3 (4.0-10.0)
[2020-09-25 15:46] LABS: ALBUMIN 3.7 g/dl (3.4-5.0); BLOOD UREA NITROGEN 19.2 mg/dL (7-18); CALCIUM 8.6 mg/dL (8.5-10.1)
[2020-09-25 15:49] LABS: CREATININE 1.2 mg/dL (0.55-1.3)
[2020-09-25 15:50] LABS: PHOSPHOROUS 3.4 mg/dL (2.5-4.9)
[2020-09-25 15:51] LABS: BILIRUBIN,TOTAL 0.8 mg/dL (0.2-1); TOT PROT 7.4 g/dl (6.4-8.2)
[2020-09-25] MEDS: hydrOXYzine PAMOATE 25 MG CAPSULE (FP) PO SCH ×2 (19:43→23:08)
[2020-09-25] MEDS ORDERED: LORazepam 2 MG TABLET PO ONE (19:45)
[2020-09-25] MEDS ORDERED: MELATONIN 5 MG TABLETS PO SCH (22:00)
[2020-09-25] MEDS: FLUTICASONE PROP 0.05% 16 GM NASAL SPRAY NS SCH (23:08)
[2020-09-25] MEDS: THIAMINE HCL 100 MG TABLET (FP) PO SCH (23:08)
[2020-09-25] MEDS: LORazepam 2 MG TABLET PO SCH (23:08)
[2020-09-26] MEDS: LORazepam 2 MG TABLET PO SCH ×4 (05:23→22:37)
[2020-09-26] MEDS: methaDONE HCL 40 MG DISPERSABLE TABLET PO SCH (05:23)
[2020-09-26] MEDS: hydrOXYzine PAMOATE 25 MG CAPSULE (FP) PO SCH ×5 (05:23→22:38)
[2020-09-26] MEDS: LEVOTHYROXINE NA 100 MCG TABLET (FP) PO SCH (06:03)
[2020-09-26] MEDS ORDERED: PNEUMOC 13-VAL CONJ-DIP CRM/PF 0.5 ML DISP.SYRIN IM ONE (10:00)
[2020-09-26] MEDS: PRENATAL VITAMINS W/ FOLIC ACID TABLET (FP) PO SCH (10:06)
[2020-09-26] MEDS: FAMOTIDINE 20 MG TABLET PO SCH (10:06)
[2020-09-26] MEDS: FLUTICASONE PROP 0.05% 16 GM NASAL SPRAY NS SCH ×2 (10:06→22:38)
[2020-09-26] MEDS: ESCITALOPRAM OXALATE 20 MG TABLET PO SCH (11:08)
[2020-09-26] MEDS: ARIPiprazole 5 MG TABLET PO SCH (11:08)
[2020-09-26 11:49] LABS: HIV INTERPRETATION NEGATIVE (NEGATIVE)
[2020-09-26] MEDS: traZODone HCL 100 MG TABLET (FP) PO SCH (22:37)
[2020-09-26] MEDS: THIAMINE HCL 100 MG TABLET (FP) PO SCH (22:37)
[2020-09-27] MEDS: methaDONE HCL 40 MG DISPERSABLE TABLET PO SCH (05:42)
[2020-09-27] MEDS: hydrOXYzine PAMOATE 25 MG CAPSULE (FP) PO SCH ×5 (05:42→23:06)
[2020-09-27] MEDS: LORazepam 1 MG TABLET PO SCH ×4 (05:42→23:05)
[2020-09-27] MEDS: LEVOTHYROXINE NA 100 MCG TABLET (FP) PO SCH (06:36)
[2020-09-27] MEDS: FAMOTIDINE 20 MG TABLET PO SCH (10:20)
[2020-09-27] MEDS: ARIPiprazole 5 MG TABLET PO SCH (10:20)
[2020-09-27] MEDS: ESCITALOPRAM OXALATE 20 MG TABLET PO SCH (10:20)
[2020-09-27] MEDS: PRENATAL VITAMINS W/ FOLIC ACID TABLET (FP) PO SCH (10:21)
[2020-09-27] MEDS: FLUTICASONE PROP 0.05% 16 GM NASAL SPRAY NS SCH ×2 (10:22→23:06)
[2020-09-27] MEDS: THIAMINE HCL 100 MG TABLET (FP) PO SCH (23:04)
[2020-09-27] MEDS: traZODone HCL 100 MG TABLET (FP) PO SCH (23:04)
[2020-09-28] MEDS ORDERED: LORazepam 0.5 MG TABLET PO PRN
[2020-09-28] MEDS: LORazepam 0.5 MG TABLET PO SCH ×4 (05:22→22:37)
[2020-09-28] MEDS: hydrOXYzine PAMOATE 25 MG CAPSULE (FP) PO SCH ×5 (05:22→22:08)
[2020-09-28] MEDS: methaDONE HCL 40 MG DISPERSABLE TABLET PO SCH (05:23)
[2020-09-28] MEDS: LEVOTHYROXINE NA 100 MCG TABLET (FP) PO SCH (08:25)
[2020-09-28] MEDS: ARIPiprazole 5 MG TABLET PO SCH (10:57)
[2020-09-28] MEDS: ESCITALOPRAM OXALATE 20 MG TABLET PO SCH (10:57)
[2020-09-28] MEDS: FLUTICASONE PROP 0.05% 16 GM NASAL SPRAY NS SCH ×2 (10:57→22:09)
[2020-09-28] MEDS: FAMOTIDINE 20 MG TABLET PO SCH (10:57)
[2020-09-28] MEDS: PRENATAL VITAMINS W/ FOLIC ACID TABLET (FP) PO SCH (10:58)
[2020-09-28] MEDS: THIAMINE HCL 100 MG TABLET (FP) PO SCH (22:08)
[2020-09-28] MEDS: traZODone HCL 100 MG TABLET (FP) PO SCH (22:10)
[2020-09-29] MEDS ORDERED: LORazepam 0.5 MG TABLET PO ONE (05:00)
[2020-09-29] MEDS: methaDONE HCL 40 MG DISPERSABLE TABLET PO SCH (05:57)
[2020-09-29] MEDS: hydrOXYzine PAMOATE 25 MG CAPSULE (FP) PO SCH ×3 (05:58→13:12)
[2020-09-29] MEDS: LEVOTHYROXINE NA 100 MCG TABLET (FP) PO SCH (06:08)
[2020-09-29 06:19] VITALS: TEMP 98.2
[2020-09-29 09:27] VITALS: BP 105/57; PULSE 76
[2020-09-29] MEDS: FLUTICASONE PROP 0.05% 16 GM NASAL SPRAY NS SCH (10:19)
[2020-09-29] MEDS: ARIPiprazole 5 MG TABLET PO SCH (10:20)
[2020-09-29] MEDS: PRENATAL VITAMINS W/ FOLIC ACID TABLET (FP) PO SCH (10:20)
[2020-09-29] MEDS: ESCITALOPRAM OXALATE 20 MG TABLET PO SCH (10:20)
[2020-09-29] MEDS: FAMOTIDINE 20 MG TABLET PO SCH (10:20)
== END 2020-09-29 13:59 | disposition other institution (70) | DRG 897 ==
LOC: YASAS 10:48 → Y6N 17:04
PROVIDERS: ADMIT Allergy & Immunology; ATTEND Allergy & Immunology
PROC: HZ2ZZZZ Detoxification Services for Substance Abuse Treatment (ICD-10-PCS; principal; 2020-09-25)
DX: F10.230 Alcohol dependence with withdrawal, uncomplicated (principal); F11.20 Opioid dependence, uncomplicated; F14.20 Cocaine dependence, uncomplicated; F17.210 Nicotine dependence, cigarettes, uncomplicated; F32.9 Major depressive disorder, single episode, unspecified; F41.1 Generalized anxiety disorder; D64.9 Anemia, unspecified; J45.909 Unspecified asthma, uncomplicated; K21.9 Gastro-esophageal reflux disease without esophagitis; E03.9 Hypothyroidism, unspecified; M54.5 Low back pain; G89.29 Other chronic pain; L90.5 Scar conditions and fibrosis of skin; Z85.21 Personal history of malignant neoplasm of larynx; Z62.810 Personal history of physical and sexual abuse in childhood; Z92.21 Personal history of antineoplastic chemotherapy; Z92.3 Personal history of irradiation; Z86.19 Personal history of other infectious and parasitic diseases; Z56.0 Unemployment, unspecified
CPT/HCPCS: 36415; 80053; 83735; 84100; 85027; 86593; 86780; 87389; 90670; C9803; U0003; U0005

== ENCOUNTER 2020-09-29 13:35 | Inpatient (IN) | payer OTHER ==
[2020-09-29] MEDS ORDERED: ACETAMINOPHEN 325 MG TABLET (FP) PO PRN (13:42)
[2020-09-29] MEDS ORDERED: MAGNESIUM HYDROX 2400MG/30ML ORAL SUSPENSION 30 ML CUP PO PRN (13:42)
[2020-09-29] MEDS ORDERED: P-EPHED 60MG/TRIPROLIDI 2.5MG TABLET PO PRN (13:42)
[2020-09-29] MEDS ORDERED: guaiFENesin 200 MG/10 ML 10 ML UNIT-DOSE CUPS PO PRN (13:42)
[2020-09-29] MEDS ORDERED: LOPERAMIDE HCL 2 MG CAPSULE PO PRN (13:42)
[2020-09-29] MEDS ORDERED: MENTHOL/PHENOL 1 EACH UD MM PRN (13:42)
[2020-09-29] MEDS ORDERED: MAGNESIUM CITRATE 300 ML BOTTLE PO PRN (13:42)
[2020-09-29] MEDS ORDERED: MAG HYDROX/AL HYDROX/SIMETH 30 ML UNIT-DOSE CUP PO PRN (13:42)
[2020-09-29] MEDS: traZODone HCL 100 MG TABLET (FP) PO SCH (21:37)
[2020-09-29] MEDS: MELATONIN 5 MG TABLETS PO SCH (21:37)
[2020-09-29] MEDS: THIAMINE HCL 100 MG TABLET (FP) PO SCH (21:37)
[2020-09-30] MEDS ORDERED: methaDONE HCL 40 MG DISPERSABLE TABLET PO ONE (06:30)
[2020-09-30] MEDS ORDERED: ESCITALOPRAM OXALATE 10 MG TABLET ONE (08:48)
[2020-09-30] MEDS: PRENATAL VITAMINS W/ FOLIC ACID TABLET (FP) PO SCH (09:35)
[2020-09-30] MEDS: ARIPiprazole 5 MG TABLET PO SCH (09:35)
[2020-09-30] MEDS: ESCITALOPRAM OXALATE 20 MG TABLET PO SCH (09:35)
[2020-09-30] MEDS: MELATONIN 5 MG TABLETS PO SCH (21:20)
[2020-09-30] MEDS: THIAMINE HCL 100 MG TABLET (FP) PO SCH (21:20)
[2020-09-30] MEDS: traZODone HCL 100 MG TABLET (FP) PO SCH (21:20)
[2020-10-01] MEDS: methaDONE HCL 40 MG DISPERSABLE TABLET PO SCH (07:32)
[2020-10-01] MEDS ORDERED: ESCITALOPRAM OXALATE 10 MG TABLET ONE (08:14)
[2020-10-01] MEDS: ARIPiprazole 5 MG TABLET PO SCH (09:47)
[2020-10-01] MEDS: PRENATAL VITAMINS W/ FOLIC ACID TABLET (FP) PO SCH (09:48)
[2020-10-01] MEDS: ESCITALOPRAM OXALATE 20 MG TABLET PO SCH (09:48)
[2020-10-01] MEDS: BACITRACIN 0.9 GM PACKET TP SCH ×2 (09:49→21:34)
[2020-10-01] MEDS: THIAMINE HCL 100 MG TABLET (FP) PO SCH (21:34)
[2020-10-01] MEDS: traZODone HCL 100 MG TABLET (FP) PO SCH (21:34)
[2020-10-01] MEDS: MELATONIN 5 MG TABLETS PO SCH (21:34)
[2020-10-01] MEDS: FLUTICASONE PROP 0.05% 16 GM NASAL SPRAY NS SCH (21:35)
[2020-10-02] MEDS ORDERED: PT OWN MED DRAWER 7, Y5N ONE ×2 (05:55→08:48)
[2020-10-02] MEDS: methaDONE HCL 40 MG DISPERSABLE TABLET PO SCH (06:23)
[2020-10-02] MEDS: LEVOTHYROXINE NA 100 MCG TABLET (FP) PO SCH (06:23)
[2020-10-02] MEDS ORDERED: ESCITALOPRAM OXALATE 10 MG TABLET ONE (08:46)
[2020-10-02] MEDS: BACITRACIN 0.9 GM PACKET TP SCH ×2 (09:44→21:07)
[2020-10-02] MEDS: FLUTICASONE PROP 0.05% 16 GM NASAL SPRAY NS SCH ×2 (09:44→21:07)
[2020-10-02] MEDS: PRENATAL VITAMINS W/ FOLIC ACID TABLET (FP) PO SCH (09:45)
[2020-10-02] MEDS: ESCITALOPRAM OXALATE 20 MG TABLET PO SCH (09:45)
[2020-10-02] MEDS: ARIPiprazole 5 MG TABLET PO SCH (09:45)
[2020-10-02] MEDS: FAMOTIDINE 20 MG TABLET PO SCH (09:45)
[2020-10-02] MEDS: COLLOIDAL OATMEAL 1 BAR EACH TP PRN (15:57)
[2020-10-02] MEDS: MELATONIN 5 MG TABLETS PO SCH (21:07)
[2020-10-02] MEDS: THIAMINE HCL 100 MG TABLET (FP) PO SCH (21:07)
[2020-10-02] MEDS: traZODone HCL 100 MG TABLET (FP) PO SCH (21:07)
[2020-10-03] MEDS: IBUPROFEN 400 MG TABLET (FP) PO PRN (06:14)
[2020-10-03] MEDS: LEVOTHYROXINE NA 100 MCG TABLET (FP) PO SCH (06:15)
[2020-10-03] MEDS: methaDONE HCL 40 MG DISPERSABLE TABLET PO SCH (06:34)
[2020-10-03] MEDS ORDERED: ESCITALOPRAM OXALATE 10 MG TABLET ONE (08:56)
[2020-10-03] MEDS: FLUTICASONE PROP 0.05% 16 GM NASAL SPRAY NS SCH ×2 (09:56→22:00)
[2020-10-03] MEDS: ARIPiprazole 5 MG TABLET PO SCH (09:56)
[2020-10-03] MEDS: BACITRACIN 0.9 GM PACKET TP SCH ×2 (09:56→21:05)
[2020-10-03] MEDS: FAMOTIDINE 20 MG TABLET PO SCH (09:57)
[2020-10-03] MEDS: ESCITALOPRAM OXALATE 20 MG TABLET PO SCH (09:57)
[2020-10-03] MEDS: PRENATAL VITAMINS W/ FOLIC ACID TABLET (FP) PO SCH (09:58)
[2020-10-03] MEDS: traZODone HCL 100 MG TABLET (FP) PO SCH (21:05)
[2020-10-03] MEDS: THIAMINE HCL 100 MG TABLET (FP) PO SCH (21:05)
[2020-10-03] MEDS: MELATONIN 5 MG TABLETS PO SCH (21:05)
[2020-10-04] MEDS ORDERED: PT OWN MED DRAWER 7, Y5N ONE ×3 (05:29→19:13)
[2020-10-04] MEDS: methaDONE HCL 40 MG DISPERSABLE TABLET PO SCH (05:59)
[2020-10-04] MEDS: LEVOTHYROXINE NA 100 MCG TABLET (FP) PO SCH (06:01)
[2020-10-04] MEDS ORDERED: ESCITALOPRAM OXALATE 10 MG TABLET ONE (08:48)
[2020-10-04] MEDS: BACITRACIN 0.9 GM PACKET TP SCH ×2 (09:37→21:28)
[2020-10-04] MEDS: ARIPiprazole 5 MG TABLET PO SCH (09:37)
[2020-10-04] MEDS: FAMOTIDINE 20 MG TABLET PO SCH (09:37)
[2020-10-04] MEDS: FLUTICASONE PROP 0.05% 16 GM NASAL SPRAY NS SCH ×2 (09:37→21:28)
[2020-10-04] MEDS: ESCITALOPRAM OXALATE 20 MG TABLET PO SCH (09:38)
[2020-10-04] MEDS: PRENATAL VITAMINS W/ FOLIC ACID TABLET (FP) PO SCH (09:38)
[2020-10-04] MEDS: THIAMINE HCL 100 MG TABLET (FP) PO SCH (21:29)
[2020-10-04] MEDS: traZODone HCL 100 MG TABLET (FP) PO SCH (21:29)
[2020-10-04] MEDS: MELATONIN 5 MG TABLETS PO SCH (21:29)
[2020-10-04] MEDS: IBUPROFEN 400 MG TABLET (FP) PO PRN (21:30)
[2020-10-05] MEDS: methaDONE HCL 40 MG DISPERSABLE TABLET PO SCH (06:14)
[2020-10-05] MEDS: LEVOTHYROXINE NA 100 MCG TABLET (FP) PO SCH (06:14)
[2020-10-05] MEDS: BACITRACIN 0.9 GM PACKET TP SCH ×2 (09:48→21:04)
[2020-10-05] MEDS: ARIPiprazole 5 MG TABLET PO SCH (09:49)
[2020-10-05] MEDS: FLUTICASONE PROP 0.05% 16 GM NASAL SPRAY NS SCH ×2 (09:49→21:05)
[2020-10-05] MEDS: ESCITALOPRAM OXALATE 20 MG TABLET PO SCH (09:49)
[2020-10-05] MEDS: FAMOTIDINE 20 MG TABLET PO SCH (09:49)
[2020-10-05] MEDS: PRENATAL VITAMINS W/ FOLIC ACID TABLET (FP) PO SCH (09:49)
[2020-10-05] MEDS ORDERED: PT OWN MED DRAWER 7, Y5N ONE (16:07)
[2020-10-05] MEDS: COLLOIDAL OATMEAL 1 BAR EACH TP PRN (16:07)
[2020-10-05] MEDS ORDERED: hydrOXYzine PAMOATE 25 MG CAPSULE (FP) PO PRN (19:54)
[2020-10-05] MEDS: THIAMINE HCL 100 MG TABLET (FP) PO SCH (21:03)
[2020-10-05] MEDS: traZODone HCL 100 MG TABLET (FP) PO SCH (21:04)
[2020-10-05] MEDS: MELATONIN 5 MG TABLETS PO SCH (21:05)
[2020-10-06] MEDS: methaDONE HCL 40 MG DISPERSABLE TABLET PO SCH (06:21)
[2020-10-06] MEDS: LEVOTHYROXINE NA 100 MCG TABLET (FP) PO SCH (06:21)
[2020-10-06] MEDS ORDERED: hydrOXYzine PAMOATE 25 MG CAPSULE (FP) PO PRN (08:32)
[2020-10-06] MEDS: BACITRACIN 0.9 GM PACKET TP SCH ×2 (10:00→21:10)
[2020-10-06] MEDS: ARIPiprazole 5 MG TABLET PO SCH (10:01)
[2020-10-06] MEDS: FLUTICASONE PROP 0.05% 16 GM NASAL SPRAY NS SCH ×2 (10:01→21:10)
[2020-10-06] MEDS: ESCITALOPRAM OXALATE 20 MG TABLET PO SCH (10:01)
[2020-10-06] MEDS: PRENATAL VITAMINS W/ FOLIC ACID TABLET (FP) PO SCH (10:01)
[2020-10-06] MEDS: FAMOTIDINE 20 MG TABLET PO SCH (10:01)
[2020-10-06] MEDS: busPIRone HCL 10 MG TABLET (FP) PO PRN (11:23)
[2020-10-06] MEDS: THIAMINE HCL 100 MG TABLET (FP) PO SCH (21:09)
[2020-10-06] MEDS: MELATONIN 5 MG TABLETS PO SCH (21:09)
[2020-10-06] MEDS: traZODone HCL 100 MG TABLET (FP) PO SCH (21:09)
[2020-10-06] MEDS ORDERED: PT OWN MED DRAWER 7, Y5N ONE (21:22)
[2020-10-07] MEDS: methaDONE HCL 40 MG DISPERSABLE TABLET PO SCH (06:37)
[2020-10-07] MEDS: LEVOTHYROXINE NA 100 MCG TABLET (FP) PO SCH (06:37)
[2020-10-07] MEDS ORDERED: PT OWN MED DRAWER 7, Y5N ONE (09:11)
[2020-10-07] MEDS: BACITRACIN 0.9 GM PACKET TP SCH ×2 (09:47→21:18)
[2020-10-07] MEDS: FLUTICASONE PROP 0.05% 16 GM NASAL SPRAY NS SCH ×2 (09:47→21:19)
[2020-10-07] MEDS: ARIPiprazole 5 MG TABLET PO SCH (09:47)
[2020-10-07] MEDS: ESCITALOPRAM OXALATE 20 MG TABLET PO SCH (09:47)
[2020-10-07] MEDS: FAMOTIDINE 20 MG TABLET PO SCH (09:48)
[2020-10-07] MEDS: PRENATAL VITAMINS W/ FOLIC ACID TABLET (FP) PO SCH (09:48)
[2020-10-07] MEDS: busPIRone HCL 10 MG TABLET (FP) PO PRN ×2 (09:48→18:05)
[2020-10-07] MEDS: THIAMINE HCL 100 MG TABLET (FP) PO SCH (21:19)
[2020-10-07] MEDS: traZODone HCL 100 MG TABLET (FP) PO SCH (21:19)
[2020-10-07] MEDS: MELATONIN 5 MG TABLETS PO SCH (21:19)
[2020-10-08] MEDS: methaDONE HCL 40 MG DISPERSABLE TABLET PO SCH (06:10)
[2020-10-08] MEDS: LEVOTHYROXINE NA 100 MCG TABLET (FP) PO SCH (07:54)
[2020-10-08] MEDS: PRENATAL VITAMINS W/ FOLIC ACID TABLET (FP) PO SCH (09:53)
[2020-10-08] MEDS: busPIRone HCL 10 MG TABLET (FP) PO PRN ×2 (09:53→19:12)
[2020-10-08] MEDS: ESCITALOPRAM OXALATE 20 MG TABLET PO SCH (09:53)
[2020-10-08] MEDS: ARIPiprazole 5 MG TABLET PO SCH (09:53)
[2020-10-08] MEDS: FAMOTIDINE 20 MG TABLET PO SCH (09:53)
[2020-10-08] MEDS: FLUTICASONE PROP 0.05% 16 GM NASAL SPRAY NS SCH ×2 (09:53→21:08)
[2020-10-08] MEDS: BACITRACIN 0.9 GM PACKET TP SCH ×2 (09:54→21:08)
[2020-10-08] MEDS ORDERED: PT OWN MED DRAWER 7, Y5N ONE (19:12)
[2020-10-08] MEDS: MELATONIN 5 MG TABLETS PO SCH (21:07)
[2020-10-08] MEDS: traZODone HCL 100 MG TABLET (FP) PO SCH (21:07)
[2020-10-08] MEDS: THIAMINE HCL 100 MG TABLET (FP) PO SCH (21:07)
[2020-10-09] MEDS: LEVOTHYROXINE NA 100 MCG TABLET (FP) PO SCH (06:20)
[2020-10-09] MEDS: methaDONE HCL 40 MG DISPERSABLE TABLET PO SCH (06:20)
[2020-10-09 07:00] VITALS: TEMP 97.1
[2020-10-09] MEDS: FLUTICASONE PROP 0.05% 16 GM NASAL SPRAY NS SCH (09:16)
[2020-10-09] MEDS: ARIPiprazole 5 MG TABLET PO SCH (09:16)
[2020-10-09] MEDS: PRENATAL VITAMINS W/ FOLIC ACID TABLET (FP) PO SCH (09:17)
[2020-10-09] MEDS: FAMOTIDINE 20 MG TABLET PO SCH (09:17)
[2020-10-09] MEDS: BACITRACIN 0.9 GM PACKET TP SCH (09:17)
[2020-10-09] MEDS: ESCITALOPRAM OXALATE 20 MG TABLET PO SCH (09:17)
[2020-10-09 10:07] VITALS: BP 98/59; PULSE 64
== END 2020-10-09 13:05 | disposition home or self-care (01) | DRG 895 ==
LOC: YASAS 13:35 → Y3E 13:36
PROVIDERS: ADMIT Allergy & Immunology; ATTEND Allergy & Immunology
PROC: HZ42ZZZ Group Counseling for Substance Abuse Treatment, Cognitive-Behavioral (ICD-10-PCS; principal; 2020-09-29)
DX: F10.20 Alcohol dependence, uncomplicated (principal); F11.20 Opioid dependence, uncomplicated; F14.20 Cocaine dependence, uncomplicated; F13.20 Sedative, hypnotic or anxiolytic dependence, uncomplicated; F19.280 Other psychoactive substance dependence with psychoactive substance-induced anxiety disorder; F17.210 Nicotine dependence, cigarettes, uncomplicated; F41.1 Generalized anxiety disorder; F32.9 Major depressive disorder, single episode, unspecified; G47.00 Insomnia, unspecified; E03.9 Hypothyroidism, unspecified; J45.909 Unspecified asthma, uncomplicated; K21.9 Gastro-esophageal reflux disease without esophagitis; M54.5 Low back pain; G89.29 Other chronic pain; Z86.19 Personal history of other infectious and parasitic diseases; Z85.819 Personal history of malignant neoplasm of unspecified site of lip, oral cavity, and pharynx; S09.8XXA Other specified injuries of head, initial encounter; Y04.2XXA Assault by strike against or bumped into by another person, initial encounter; Y93.9 Activity, unspecified; Y92.238 Other place in hospital as the place of occurrence of the external cause
CPT/HCPCS: 82962

== ENCOUNTER 2020-10-08 12:23 | Emergency (ER) | payer OTHER ==
[2020-10-08 12:45] VITALS: BP 102/60; PULSE 58; TEMP 98.5; BMI 26.2
== END 2020-10-08 15:22 | disposition home or self-care (01) ==
LOC: JERFT 12:23
DX: R04.0 Epistaxis (principal); Y04.0XXA Assault by unarmed brawl or fight, initial encounter
CPT/HCPCS: 70450-TC; 70486-TC; 99284-25

== ENCOUNTER 2022-07-06 12:30 | Inpatient (IN) | payer OTHER ==
[2022-07-06 12:57] VITALS: BMI 25.6
[2022-07-06] MEDS ORDERED: ONDANSETRON *ODT* 4 MG TABLET SL PRN (15:27)
[2022-07-06] MEDS ORDERED: BENZOCAINE/MENTHOL (CHLORASEPTIC ) LOZENGE MM PRN (15:27)
[2022-07-06] MEDS ORDERED: BISMUTH SUBSALICYLATE 524 MG/30 ML PO PRN (15:27)
[2022-07-06] MEDS ORDERED: IBUPROFEN 600 MG TABLET (FP) PO PRN (15:27)
[2022-07-06] MEDS ORDERED: NALOXONE HCL 0.4 MG/ML VIAL IM PRN (15:27)
[2022-07-06] MEDS ORDERED: POLYETHYLENE GLYCOL (HEALTHYLAX) 3350 17 GM PACKET PO PRN (15:27)
[2022-07-06] MEDS ORDERED: LOPERAMIDE HCL 2 MG CAPSULE PO PRN (15:27)
[2022-07-06] MEDS ORDERED: IBUPROFEN 400 MG TABLET (FP) PO PRN (15:27)
[2022-07-06] MEDS ORDERED: DICYCLOMINE HCL 10 MG CAPSULE PO PRN (15:27)
[2022-07-06] MEDS ORDERED: ACETAMINOPHEN 325 MG TABLET (FP) PO PRN (15:27)
[2022-07-06] MEDS ORDERED: NICOTINE 10 MG CARTRIDGE (INHALER) IH PRN (15:27)
[2022-07-06] MEDS ORDERED: NICOTINE POLACRILEX 2 MG GUM BUC PRN (15:27)
[2022-07-06] MEDS ORDERED: BENZONATATE 200 MG CAPSULE PO PRN (15:27)
[2022-07-06] MEDS ORDERED: guaiFENesin 600 MG TABLET.ER (FP) PO PRN (15:27)
[2022-07-06] MEDS ORDERED: NALOXONE HCL (KLOXXADO) 8 MG SPRAY NS PRN (15:27)
[2022-07-06] MEDS ORDERED: MAGNESIUM HYDROX 2400MG/30ML ORAL SUSPENSION 30 ML CUP PO PRN (15:27)
[2022-07-06] MEDS ORDERED: diazePAM 5 MG TABLET PO PRN (15:31)
[2022-07-06] MEDS: diazePAM 5 MG TABLET PO SCH ×2 (17:41→22:31)
[2022-07-06] MEDS: SULFAMETHOXAZOLE/TRIMETHOPRIM 800MG/160MG D.S. TABLET PO SCH ×2 (17:42→22:31)
[2022-07-06] MEDS ORDERED: MELATONIN 5 MG TABLETS PO SCH (22:00)
[2022-07-06] MEDS: METHOCARBAMOL 500 MG TABLET PO PRN (22:31)
[2022-07-06] MEDS: THIAMINE HCL 100 MG TABLET (FP) PO SCH (22:31)
[2022-07-06] MEDS: FLUTICASONE PROP 0.05% 16 GM NASAL SPRAY NS SCH (23:02)
[2022-07-07] MEDS: diazePAM 5 MG TABLET PO SCH ×4 (05:16→22:21)
[2022-07-07] MEDS: ALBUTEROL SO4 HFA INHALER IH PRN ×2 (05:17→20:28)
[2022-07-07] MEDS: LEVOTHYROXINE NA 100 MCG TABLET (FP) PO SCH (05:17)
[2022-07-07] MEDS ORDERED: methaDONE HCL 10 MG TABLET PO SCH (08:45)
[2022-07-07] MEDS ORDERED: methaDONE HCL 40 MG DISPERSABLE TABLET PO SCH (10:00)
[2022-07-07] MEDS: FAMOTIDINE 20 MG TABLET PO SCH (10:15)
[2022-07-07] MEDS: PRENATAL VITAMINS W/ FOLIC ACID TABLET (FP) PO SCH (10:15)
[2022-07-07] MEDS: FLUTICASONE PROP 0.05% 16 GM NASAL SPRAY NS SCH ×2 (10:15→22:19)
[2022-07-07] MEDS: SULFAMETHOXAZOLE/TRIMETHOPRIM 800MG/160MG D.S. TABLET PO SCH ×2 (10:15→22:20)
[2022-07-07 11:39] LABS: HEMATOCRIT 31.3 % (35.4-49); HEMOGLOBIN 10.5 GM/dL (11.7-16.9); MCH 26.9 pg (25.7-33.7); MCHC 33.6 g/dl (32.0-35.9); MEAN CELL VOLUME 80.2 fl (80-96); MEAN PLT VOLUME 7.7 fl (7.5-11.1); PLATELET COUNT 244 10^3/uL (134-434); RDW 15.6 % (11.9-15.9); WHITE BLOOD COUNT 7.2 K/mm3 (4.0-10.0)
[2022-07-07 11:44] LABS: POTASSIUM 4.6 mmol/L (3.5-5.1)
[2022-07-07 12:03] LABS: CALCIUM 8.7 mg/dL (8.5-10.1)
[2022-07-07 12:04] LABS: ALBUMIN 3.1 g/dl (3.4-5.0); BLOOD UREA NITROGEN 13.7 mg/dL (7-18)
[2022-07-07 12:07] LABS: TOT PROT 6.8 g/dl (6.4-8.2)
[2022-07-07 12:11] LABS: BILIRUBIN,TOTAL 0.2 mg/dL (0.2-1)
[2022-07-07] MEDS ORDERED: traZODone HCL 100 MG TABLET (FP) PO SCH (22:00)
[2022-07-07] MEDS: MIRTAZAPINE 15 MG TABLET (FP) PO SCH (22:20)
[2022-07-07] MEDS: traZODone HCL 50 MG TABLET (FP) PO SCH (22:20)
[2022-07-07] MEDS: METHOCARBAMOL 500 MG TABLET PO PRN (22:20)
[2022-07-07] MEDS: THIAMINE HCL 100 MG TABLET (FP) PO SCH (22:21)
[2022-07-07] MEDS: OLANZapine 5 MG TABLET PO SCH (22:59)
[2022-07-08] MEDS: MAG HYDROX/AL HYDROX/SIMETH 30 ML UNIT-DOSE CUP PO PRN (01:31)
[2022-07-08] MEDS: diazePAM 5 MG TABLET PO SCH ×3 (05:36→22:31)
[2022-07-08] MEDS: LEVOTHYROXINE NA 100 MCG TABLET (FP) PO SCH (05:36)
[2022-07-08] MEDS: SULFAMETHOXAZOLE/TRIMETHOPRIM 800MG/160MG D.S. TABLET PO SCH ×2 (10:23→22:32)
[2022-07-08] MEDS: FLUTICASONE PROP 0.05% 16 GM NASAL SPRAY NS SCH ×2 (10:23→22:33)
[2022-07-08] MEDS: PRENATAL VITAMINS W/ FOLIC ACID TABLET (FP) PO SCH (10:23)
[2022-07-08] MEDS: FAMOTIDINE 20 MG TABLET PO SCH (10:23)
[2022-07-08] MEDS: ALBUTEROL SO4 HFA INHALER IH PRN (13:37)
[2022-07-08] MEDS: traZODone HCL 50 MG TABLET (FP) PO SCH (22:32)
[2022-07-08] MEDS: MIRTAZAPINE 15 MG TABLET (FP) PO SCH (22:32)
[2022-07-08] MEDS: THIAMINE HCL 100 MG TABLET (FP) PO SCH (22:32)
[2022-07-08] MEDS: OLANZapine 5 MG TABLET PO SCH (22:32)
[2022-07-09] MEDS: diazePAM 5 MG TABLET PO SCH ×2 (05:53→17:27)
[2022-07-09] MEDS: LEVOTHYROXINE NA 100 MCG TABLET (FP) PO SCH (06:23)
[2022-07-09] MEDS ORDERED: PENICILLIN G BENZATHINE 2,400,000 UNIT/4 ML PFS IM ONE ×2 (09:28→11:00)
[2022-07-09] MEDS: FLUTICASONE PROP 0.05% 16 GM NASAL SPRAY NS SCH ×2 (10:29→22:19)
[2022-07-09] MEDS: PRENATAL VITAMINS W/ FOLIC ACID TABLET (FP) PO SCH (10:29)
[2022-07-09] MEDS: FAMOTIDINE 20 MG TABLET PO SCH (10:30)
[2022-07-09] MEDS: SULFAMETHOXAZOLE/TRIMETHOPRIM 800MG/160MG D.S. TABLET PO SCH ×2 (10:30→22:19)
[2022-07-09] MEDS: ALBUTEROL SO4 HFA INHALER IH PRN (14:48)
[2022-07-09] MEDS: MAG HYDROX/AL HYDROX/SIMETH 30 ML UNIT-DOSE CUP PO PRN (17:30)
[2022-07-09 21:11] VITALS: RESP 18
[2022-07-09] MEDS: MIRTAZAPINE 15 MG TABLET (FP) PO SCH (22:19)
[2022-07-09] MEDS: THIAMINE HCL 100 MG TABLET (FP) PO SCH (22:19)
[2022-07-09] MEDS: traZODone HCL 50 MG TABLET (FP) PO SCH (22:19)
[2022-07-09] MEDS: OLANZapine 5 MG TABLET PO SCH (22:19)
[2022-07-10] MEDS: LEVOTHYROXINE NA 100 MCG TABLET (FP) PO SCH (05:39)
[2022-07-10] MEDS ORDERED: diazePAM 5 MG TABLET PO ONE (06:00)
[2022-07-10 09:18] VITALS: BP 95/56; PULSE 69; TEMP 98
[2022-07-10] MEDS: PRENATAL VITAMINS W/ FOLIC ACID TABLET (FP) PO SCH (10:18)
[2022-07-10] MEDS: FLUTICASONE PROP 0.05% 16 GM NASAL SPRAY NS SCH (10:18)
[2022-07-10] MEDS: FAMOTIDINE 20 MG TABLET PO SCH (10:18)
[2022-07-10] MEDS: SULFAMETHOXAZOLE/TRIMETHOPRIM 800MG/160MG D.S. TABLET PO SCH (10:18)
== END 2022-07-10 12:55 | disposition other institution (70) | DRG 896 ==
LOC: YASAS 12:30 → Y3N 16:35
PROVIDERS: ADMIT Allergy & Immunology; ATTEND Surgery
PROC: HZ2ZZZZ Detoxification Services for Substance Abuse Treatment (ICD-10-PCS; principal; 2022-07-06)
DX: F11.23 Opioid dependence with withdrawal (principal); J18.9 Pneumonia, unspecified organism; F13.20 Sedative, hypnotic or anxiolytic dependence, uncomplicated; F14.20 Cocaine dependence, uncomplicated; F41.1 Generalized anxiety disorder; F32.A Depression, unspecified; E03.9 Hypothyroidism, unspecified; J45.909 Unspecified asthma, uncomplicated; K21.9 Gastro-esophageal reflux disease without esophagitis; M54.50 Low back pain, unspecified; G89.29 Other chronic pain; Z86.19 Personal history of other infectious and parasitic diseases; Z85.819 Personal history of malignant neoplasm of unspecified site of lip, oral cavity, and pharynx; Z72.0 Tobacco use
CPT/HCPCS: 36415; 80053; 85027; 86593; 86780; C9803-CS; U0003; U0005

== ENCOUNTER 2022-07-10 12:27 | Inpatient (IN) | payer OTHER ==
[2022-07-10] MEDS ORDERED: IBUPROFEN 400 MG TABLET (FP) PO PRN (14:14)
[2022-07-10] MEDS ORDERED: BENZOCAINE/MENTHOL (CHLORASEPTIC ) LOZENGE MM PRN (14:14)
[2022-07-10] MEDS ORDERED: COLLOIDAL OATMEAL 1 BAR EACH TP PRN (14:14)
[2022-07-10] MEDS ORDERED: AMMONIUM LACTATE 12% LOTION 225 GM BOTTLE TP PRN (14:14)
[2022-07-10] MEDS ORDERED: ACETAMINOPHEN 325 MG TABLET (FP) PO PRN (14:14)
[2022-07-10] MEDS ORDERED: NALOXONE HCL (KLOXXADO) 8 MG SPRAY NS PRN (14:14)
[2022-07-10] MEDS ORDERED: NALOXONE HCL 0.4 MG/ML VIAL IVPUSH PRN (14:14)
[2022-07-10] MEDS ORDERED: POLYETHYLENE GLYCOL (HEALTHYLAX) 3350 17 GM PACKET PO PRN (14:14)
[2022-07-10] MEDS ORDERED: guaiFENesin 600 MG TABLET.ER (FP) PO PRN (14:14)
[2022-07-10] MEDS ORDERED: LOPERAMIDE HCL 2 MG CAPSULE PO PRN (14:14)
[2022-07-10] MEDS ORDERED: hydrOXYzine PAMOATE 25 MG CAPSULE (FP) PO PRN (14:14)
[2022-07-10] MEDS ORDERED: BENZONATATE 200 MG CAPSULE PO PRN (14:14)
[2022-07-10] MEDS ORDERED: IBUPROFEN 600 MG TABLET (FP) PO PRN (14:14)
[2022-07-10] MEDS ORDERED: MAGNESIUM HYDROX 2400MG/30ML ORAL SUSPENSION 30 ML CUP PO PRN (14:14)
[2022-07-10] MEDS ORDERED: MAG HYDROX/AL HYDROX/SIMETH 30 ML UNIT-DOSE CUP PO PRN (14:14)
[2022-07-10] MEDS ORDERED: NICOTINE POLACRILEX 2 MG GUM BUC PRN (14:16)
[2022-07-10] MEDS ORDERED: ALBUTEROL SO4 HFA INHALER IH PRN (14:17)
[2022-07-10 18:32] VITALS: BP 92/61; PULSE 63
[2022-07-10 18:59] VITALS: RESP 16; TEMP 97.8
[2022-07-10] MEDS ORDERED: OLANZapine 5 MG TABLET PO SCH (22:00)
[2022-07-10] MEDS ORDERED: SULFAMETHOXAZOLE/TRIMETHOPRIM 800MG/160MG D.S. TABLET PO SCH (22:00)
[2022-07-10] MEDS ORDERED: THIAMINE HCL 100 MG TABLET (FP) PO SCH (22:00)
[2022-07-10] MEDS ORDERED: FLUTICASONE PROP 0.05% 16 GM NASAL SPRAY NS SCH (22:00)
[2022-07-10] MEDS ORDERED: MELATONIN 5 MG TABLETS PO SCH (22:00)
[2022-07-10] MEDS ORDERED: MIRTAZAPINE 15 MG TABLET (FP) PO SCH (22:00)
[2022-07-10] MEDS ORDERED: traZODone HCL 50 MG TABLET (FP) PO SCH (22:00)
[2022-07-11] MEDS ORDERED: methaDONE HCL 10 MG TABLET PO SCH (06:00)
[2022-07-11] MEDS ORDERED: LEVOTHYROXINE NA 100 MCG TABLET (FP) PO SCH (07:00)
[2022-07-11] MEDS ORDERED: PRENATAL VITAMINS W/ FOLIC ACID TABLET (FP) PO SCH (10:00)
[2022-07-11] MEDS ORDERED: FAMOTIDINE 20 MG TABLET PO SCH (10:00)
== END 2022-07-11 08:15 | disposition short-term general hospital (02) | DRG 895 ==
LOC: YASAS 12:27 → Y5N 12:29
PROVIDERS: ADMIT Allergy & Immunology; ATTEND Psychiatry & Neurology Pain Medicine
PROC: HZ42ZZZ Group Counseling for Substance Abuse Treatment, Cognitive-Behavioral (ICD-10-PCS; principal; 2022-07-10)
DX: F11.20 Opioid dependence, uncomplicated (principal); J18.9 Pneumonia, unspecified organism; F14.20 Cocaine dependence, uncomplicated; F13.20 Sedative, hypnotic or anxiolytic dependence, uncomplicated; F32.A Depression, unspecified; E03.9 Hypothyroidism, unspecified; M54.50 Low back pain, unspecified; G89.29 Other chronic pain; Z86.19 Personal history of other infectious and parasitic diseases; Z85.819 Personal history of malignant neoplasm of unspecified site of lip, oral cavity, and pharynx
CPT/HCPCS: 71046-TC-FY

== ENCOUNTER 2022-07-10 20:15 | Inpatient (IN) | payer OTHER ==
[2022-07-10 20:28] VITALS: BMI 25.7
[2022-07-10 22:38] LABS: BASO % 0.7 % (0-2.0); EOS % 6.6 % (0-4.5); HEMATOCRIT 28.4 % (35.4-49); HEMOGLOBIN 9.6 GM/dL (11.7-16.9); LYMPH % 22.1 % (8-40); MCHC 33.9 g/dl (32.0-35.9); MEAN CELL VOLUME 79.8 fl (80-96); MEAN PLT VOLUME 7.4 fl (7.5-11.1); MONO % 9.3 % (3.8-10.2); NEUT % 61.3 % (42.8-82.8); PLATELET COUNT 236 10^3/uL (134-434); RBC 3.56 M/mm3 (4.00-5.60); RDW 15.5 % (11.9-15.9); WHITE BLOOD COUNT 4.9 K/mm3 (4.0-10.0)
[2022-07-10 22:53] LABS: INR 0.97 (0.83-1.09); PROTHROMBIN TIME (PATIENT) 11.2 SEC (9.7-13.0)
[2022-07-10 22:56] LABS: ACTIVATED PTT 29.8 SECONDS (25.2-36.5)
[2022-07-11 00:24] LABS: ALBUMIN 3.2 g/dl (3.4-5.0); BILIRUBIN,TOTAL 0.1 mg/dL (0.2-1); BLOOD UREA NITROGEN 13.3 mg/dL (7-18); CALCIUM 8.9 mg/dL (8.5-10.1); CREATININE 1.1 mg/dL (0.55-1.3); POTASSIUM 4.8 mmol/L (3.5-5.1); TOT PROT 6.7 g/dl (6.4-8.2)
[2022-07-11] MEDS ORDERED: CEFTRIAXONE 1,000 MG in DEXTROSE 5%-WATER - 50 ML IVPB ONE (04:42)
[2022-07-11] MEDS ORDERED: DOXYCYCLINE INJECTION 100 MG in DEXTROSE 5%-WATER 100 ML IVPB ONE (04:42)
[2022-07-11] MEDS ORDERED: DOXYCYCLINE HYCLATE 100 MG VIAL ONE (04:50)
[2022-07-11] MEDS ORDERED: CEFTRIAXONE 1 GM/50 ML BAG ONE (04:51)
[2022-07-11] MEDS ORDERED: methaDONE HCL 10 MG TABLET PO ONE (05:03)
[2022-07-11] MEDS ORDERED: methaDONE HCL 40 MG DISPERSABLE TABLET ONE (05:27)
[2022-07-11] MEDS ORDERED: methaDONE HCL 10 MG TABLET ONE (05:28)
[2022-07-11] MEDS ORDERED: AMPICILLIN NA/SULBACTAM NA 1.5 GM in SODIUM CHLORIDE 100 ML IVPB SCH ×2 (07:00→10:22)
[2022-07-11] MEDS ORDERED: ALBUTEROL SO4 HFA INHALER IH PRN (08:01)
[2022-07-11] MEDS: AZITHROMYCIN IVPB 500 MG/250 ML BAG IVPB SCH (08:05)
[2022-07-11] MEDS: FLUTICASONE PROP 0.05% 16 GM NASAL SPRAY NS SCH ×2 (09:17→22:08)
[2022-07-11] MEDS ORDERED: VANCOMYCIN 1 GM in D5W (PRE-DOCKED) 1,000 MG/250 ML (RESTRICTED TO ID ONLY IVPB SCH (10:30)
[2022-07-11] MEDS: FAMOTIDINE 20 MG TABLET PO SCH (10:33)
[2022-07-11] MEDS: ENOXAPARIN NA (PORCINE) 40 MG/0.4 ML DISP.SYRIN SQ SCH (10:33)
[2022-07-11] MEDS ORDERED: PIPERACILLIN/TAZOB 3.375 GM 3.375 GM in DEXTROSE 5%-WATER - 50 ML IVPB SCH ×2 (13:00→18:00)
[2022-07-11 13:56] LABS: PH,URINE 7.5 (5.0-8.0); URINE APPEARANCE CLEAR; URINE BILIRUBIN NEGATIVE (NEGATIVE); URINE COLOR YELLOW; URINE GLUCOSE (UA) NEGATIVE (NEGATIVE); URINE KETONE NEGATIVE (NEGATIVE); URINE LEUK ESTERASE NEGATIVE (NEGATIVE); URINE NITRITE NEGATIVE (NEGATIVE); URINE PROTEIN NEGATIVE (NEGATIVE); URINE UROBILINOGEN 0.2 mg/dL (0.2-1.0)
[2022-07-11 15:43] VITALS: RESP 18
[2022-07-11] MEDS ORDERED: traZODone HCL 50 MG TABLET (FP) PO SCH (22:00)
[2022-07-11] MEDS ORDERED: VANCOMYCIN 1 GM/200 ML PREMIX BAG (RESTRICTED TO ID ONLY) IVPB SCH (22:00)
[2022-07-11] MEDS ORDERED: MIRTAZAPINE 15 MG TABLET (FP) PO SCH (22:00)
[2022-07-11] MEDS ORDERED: OLANZapine 5 MG TABLET PO SCH (22:00)
[2022-07-12] MEDS ORDERED: LEVOTHYROXINE NA 100 MCG TABLET (FP) PO SCH (07:00)
[2022-07-12 09:09] LABS: BASO % 0.8 % (0-2.0); EOS % 8.3 % (0-4.5); MCH 27.3 pg (25.7-33.7); MCHC 34.5 g/dl (32.0-35.9); MEAN CELL VOLUME 79.2 fl (80-96); MEAN PLT VOLUME 7.8 fl (7.5-11.1); MONO % 9.4 % (3.8-10.2); NEUT % 53.5 % (42.8-82.8); PLATELET COUNT 275 10^3/uL (134-434); RBC 3.67 M/mm3 (4.00-5.60); WHITE BLOOD COUNT 4.2 K/mm3 (4.0-10.0)
[2022-07-12 09:32] LABS: POTASSIUM 4.4 mmol/L (3.5-5.1)
[2022-07-12 09:34] LABS: ALBUMIN 3.1 g/dl (3.4-5.0); BLOOD UREA NITROGEN 15.4 mg/dL (7-18); CALCIUM 8.8 mg/dL (8.5-10.1); MAGNESIUM 2.2 mg/dL (1.8-2.4)
[2022-07-12 09:38] LABS: CREATININE 1.1 mg/dL (0.55-1.3)
[2022-07-12 09:39] LABS: BILIRUBIN,TOTAL 0.2 mg/dL (0.2-1); TOT PROT 6.6 g/dl (6.4-8.2)
[2022-07-12] MEDS ORDERED: CEFTRIAXONE 1 GM in DEXTROSE 5%-WATER - 50 ML IVPB SCH (10:00)
[2022-07-12] MEDS: FAMOTIDINE 20 MG TABLET PO SCH (10:12)
[2022-07-12] MEDS: ENOXAPARIN NA (PORCINE) 40 MG/0.4 ML DISP.SYRIN SQ SCH (10:12)
[2022-07-12 10:53] VITALS: BP 98/58; PULSE 54; TEMP 97.7
[2022-07-12] MEDS ORDERED: methaDONE HCL 10 MG TABLET PO ONE ×2 (11:10)
[2022-07-12] MEDS: AZITHROMYCIN IVPB 500 MG/250 ML BAG IVPB SCH (11:26)
[2022-07-12] MEDS: FLUTICASONE PROP 0.05% 16 GM NASAL SPRAY NS SCH (11:27)
== END 2022-07-12 13:26 | disposition left against medical advice (07) | DRG 194 ==
LOC: JER 20:15 → JERBED 07-11 04:46 → J5S 07-11 07:14
PROVIDERS: ADMIT Internal Medicine; ATTEND Internal Medicine
DX: J18.9 Pneumonia, unspecified organism (principal); A15.9 Respiratory tuberculosis unspecified; J45.909 Unspecified asthma, uncomplicated; E03.9 Hypothyroidism, unspecified; K21.9 Gastro-esophageal reflux disease without esophagitis; D50.9 Iron deficiency anemia, unspecified; F11.90 Opioid use, unspecified, uncomplicated; F17.210 Nicotine dependence, cigarettes, uncomplicated; D64.9 Anemia, unspecified; K76.0 Fatty (change of) liver, not elsewhere classified; F43.10 Post-traumatic stress disorder, unspecified; F41.8 Other specified anxiety disorders; M54.50 Low back pain, unspecified; Z85.850 Personal history of malignant neoplasm of thyroid
CPT/HCPCS: 36415; 71260-TC; 76700-TC; 80053; 81003; 82308; 82728; 83540; 83550; 83605; 83735; 83880; 84100; 84443; 84484; 85025; 85045; 85610; 85730; 86480; 86850; 86900; 86901; 87040; 87116; 87899; 93005; 93010; 99285-25; Q9967

== ENCOUNTER 2022-11-03 13:22 | Inpatient (IN) | payer OTHER ==
[2022-11-03 13:58] VITALS: BMI 23.6
[2022-11-03] MEDS ORDERED: DICYCLOMINE HCL 10 MG CAPSULE PO PRN (17:26)
[2022-11-03] MEDS ORDERED: NICOTINE POLACRILEX 2 MG GUM BUC PRN (17:26)
[2022-11-03] MEDS ORDERED: IBUPROFEN 400 MG TABLET (FP) PO PRN (17:26)
[2022-11-03] MEDS ORDERED: BISMUTH SUBSALICYLATE 524 MG/30 ML PO PRN (17:26)
[2022-11-03] MEDS ORDERED: ACETAMINOPHEN 325 MG TABLET (FP) PO PRN (17:26)
[2022-11-03] MEDS ORDERED: MAGNESIUM HYDROX 2400MG/30ML ORAL SUSPENSION 30 ML CUP PO PRN (17:26)
[2022-11-03] MEDS ORDERED: BENZOCAINE/MENTHOL (CHLORASEPTIC ) LOZENGE MM PRN (17:26)
[2022-11-03] MEDS ORDERED: POLYETHYLENE GLYCOL (HEALTHYLAX) 3350 17 GM PACKET PO PRN (17:26)
[2022-11-03] MEDS ORDERED: NALOXONE HCL (KLOXXADO) 8 MG SPRAY NS PRN (17:26)
[2022-11-03] MEDS ORDERED: IBUPROFEN 600 MG TABLET (FP) PO PRN (17:26)
[2022-11-03] MEDS ORDERED: MAG HYDROX/AL HYDROX/SIMETH 30 ML UNIT-DOSE CUP PO PRN (17:26)
[2022-11-03] MEDS ORDERED: ONDANSETRON *ODT* 4 MG TABLET SL PRN (17:26)
[2022-11-03] MEDS ORDERED: LOPERAMIDE HCL 2 MG CAPSULE PO PRN (17:26)
[2022-11-03] MEDS ORDERED: guaiFENesin 600 MG TABLET.ER (FP) PO PRN (17:26)
[2022-11-03] MEDS ORDERED: diazePAM 5 MG TABLET PO PRN (17:26)
[2022-11-03] MEDS ORDERED: NALOXONE HCL 0.4 MG/ML VIAL IM PRN (17:26)
[2022-11-03] MEDS ORDERED: BENZONATATE 200 MG CAPSULE PO PRN (17:26)
[2022-11-03] MEDS ORDERED: hydrOXYzine PAMOATE 25 MG CAPSULE (FP) PO PRN (17:26)
[2022-11-03] MEDS ORDERED: MELATONIN 5 MG TABLETS PO SCH (22:00)
[2022-11-03] MEDS: diazePAM 5 MG TABLET PO SCH (22:22)
[2022-11-03] MEDS: FLUTICASONE PROP 0.05% 16 GM NASAL SPRAY NS SCH (22:23)
[2022-11-03] MEDS: THIAMINE HCL 100 MG TABLET (FP) PO SCH (22:24)
[2022-11-04] MEDS: LEVOTHYROXINE NA 100 MCG TABLET (FP) PO SCH (05:42)
[2022-11-04] MEDS: diazePAM 5 MG TABLET PO SCH ×4 (05:42→22:19)
[2022-11-04] MEDS ORDERED: methaDONE HCL 10 MG TABLET PO SCH (07:45)
[2022-11-04] MEDS: PRENATAL VITAMINS W/ FOLIC ACID TABLET (FP) PO SCH (10:14)
[2022-11-04] MEDS: FLUTICASONE PROP 0.05% 16 GM NASAL SPRAY NS SCH ×2 (10:14→22:20)
[2022-11-04] MEDS: FAMOTIDINE 20 MG TABLET PO SCH (10:14)
[2022-11-04 10:40] LABS: HEMATOCRIT 30.8 % (35.4-49); HEMOGLOBIN 10.3 GM/dL (11.7-16.9); MCHC 33.6 g/dl (32.0-35.9); MEAN CELL VOLUME 77.6 fl (80-96); MEAN PLT VOLUME 7.3 fl (7.5-11.1); PLATELET COUNT 256 10^3/uL (134-434); RBC 3.97 M/mm3 (4.00-5.60); RDW 15.7 % (11.9-15.9)
[2022-11-04 10:51] LABS: POTASSIUM 4.3 mmol/L (3.5-5.1)
[2022-11-04 10:55] LABS: BLOOD UREA NITROGEN 12.4 mg/dL (7-18); CALCIUM 8.4 mg/dL (8.5-10.1)
[2022-11-04 11:00] LABS: BILIRUBIN,TOTAL 0.4 mg/dL (0.2-1); TOT PROT 6.9 g/dl (6.4-8.2)
[2022-11-04 11:47] LABS: HIV INTERPRETATION NEGATIVE (NEGATIVE)
[2022-11-04] MEDS: traZODone HCL 100 MG TABLET (FP) PO SCH (22:18)
[2022-11-04] MEDS: OLANZapine 10 MG TABLET PO SCH (22:18)
[2022-11-04] MEDS: MIRTAZAPINE 30 MG TABLET PO SCH (22:18)
[2022-11-04] MEDS: THIAMINE HCL 100 MG TABLET (FP) PO SCH (22:18)
[2022-11-04] MEDS: ALBUTEROL SO4 HFA INHALER IH PRN (22:20)
[2022-11-05] MEDS: diazePAM 5 MG TABLET PO SCH ×3 (05:19→22:05)
[2022-11-05] MEDS: LEVOTHYROXINE NA 100 MCG TABLET (FP) PO SCH (05:19)
[2022-11-05] MEDS: PRENATAL VITAMINS W/ FOLIC ACID TABLET (FP) PO SCH (10:19)
[2022-11-05] MEDS: FLUTICASONE PROP 0.05% 16 GM NASAL SPRAY NS SCH ×2 (10:20→22:06)
[2022-11-05] MEDS: METHOCARBAMOL 500 MG TABLET PO PRN (10:20)
[2022-11-05] MEDS: FAMOTIDINE 20 MG TABLET PO SCH (10:20)
[2022-11-05] MEDS: FERROUS SO4 325 MG TABLET (FP) PO SCH (17:25)
[2022-11-05] MEDS: OLANZapine 10 MG TABLET PO SCH (22:04)
[2022-11-05] MEDS: traZODone HCL 100 MG TABLET (FP) PO SCH (22:04)
[2022-11-05] MEDS: THIAMINE HCL 100 MG TABLET (FP) PO SCH (22:04)
[2022-11-05] MEDS: MIRTAZAPINE 30 MG TABLET PO SCH (22:04)
[2022-11-05] MEDS: ALBUTEROL SO4 HFA INHALER IH PRN (22:07)
[2022-11-06] MEDS: diazePAM 5 MG TABLET PO SCH ×2 (05:58→17:40)
[2022-11-06] MEDS: LEVOTHYROXINE NA 100 MCG TABLET (FP) PO SCH (05:58)
[2022-11-06] MEDS: FERROUS SO4 325 MG TABLET (FP) PO SCH ×2 (07:35→17:40)
[2022-11-06] MEDS: PRENATAL VITAMINS W/ FOLIC ACID TABLET (FP) PO SCH (10:17)
[2022-11-06] MEDS: METHOCARBAMOL 500 MG TABLET PO PRN (10:17)
[2022-11-06] MEDS: FAMOTIDINE 20 MG TABLET PO SCH (10:17)
[2022-11-06] MEDS: FLUTICASONE PROP 0.05% 16 GM NASAL SPRAY NS SCH ×2 (10:17→22:19)
[2022-11-06 12:04] LABS: HEMATOCRIT 30.7 % (35.4-49); HEMOGLOBIN 10.4 GM/dL (11.7-16.9); MCH 26.6 pg (25.7-33.7); MCHC 34.1 g/dl (32.0-35.9); MEAN CELL VOLUME 78.1 fl (80-96); MEAN PLT VOLUME 7.6 fl (7.5-11.1); PLATELET COUNT 279 10^3/uL (134-434); RBC 3.93 M/mm3 (4.00-5.60); RDW 15.7 % (11.9-15.9); WHITE BLOOD COUNT 3.5 K/mm3 (4.0-10.0)
[2022-11-06] MEDS: ALBUTEROL SO4 HFA INHALER IH PRN (18:32)
[2022-11-06 21:11] VITALS: RESP 16
[2022-11-06] MEDS: traZODone HCL 100 MG TABLET (FP) PO SCH (22:18)
[2022-11-06] MEDS: THIAMINE HCL 100 MG TABLET (FP) PO SCH (22:18)
[2022-11-06] MEDS: MIRTAZAPINE 30 MG TABLET PO SCH (22:18)
[2022-11-06] MEDS: OLANZapine 10 MG TABLET PO SCH (22:18)
[2022-11-07] MEDS: LEVOTHYROXINE NA 100 MCG TABLET (FP) PO SCH (05:29)
[2022-11-07] MEDS ORDERED: diazePAM 5 MG TABLET PO ONE (06:00)
[2022-11-07 06:41] VITALS: BP 112/78; PULSE 70; TEMP 97.6
[2022-11-07] MEDS: FERROUS SO4 325 MG TABLET (FP) PO SCH (08:05)
[2022-11-07] MEDS: FLUTICASONE PROP 0.05% 16 GM NASAL SPRAY NS SCH (10:42)
[2022-11-07] MEDS: FAMOTIDINE 20 MG TABLET PO SCH (10:42)
[2022-11-07] MEDS: PRENATAL VITAMINS W/ FOLIC ACID TABLET (FP) PO SCH (10:42)
== END 2022-11-07 11:00 | disposition other institution (70) | DRG 897 ==
LOC: YASAS 13:22 → Y6N 17:54
PROVIDERS: ADMIT Allergy & Immunology; ATTEND Surgery
PROC: HZ2ZZZZ Detoxification Services for Substance Abuse Treatment (ICD-10-PCS; principal; 2022-11-03)
DX: F13.230 Sedative, hypnotic or anxiolytic dependence with withdrawal, uncomplicated (principal); F11.20 Opioid dependence, uncomplicated; F14.20 Cocaine dependence, uncomplicated; F17.210 Nicotine dependence, cigarettes, uncomplicated; F41.1 Generalized anxiety disorder; E03.9 Hypothyroidism, unspecified; J45.909 Unspecified asthma, uncomplicated; K21.9 Gastro-esophageal reflux disease without esophagitis; M54.50 Low back pain, unspecified; G89.29 Other chronic pain; Z62.810 Personal history of physical and sexual abuse in childhood; Z86.19 Personal history of other infectious and parasitic diseases; Z85.850 Personal history of malignant neoplasm of thyroid
CPT/HCPCS: 36415; 80053; 82607; 82746; 83036; 83540; 83550; 85027; 85045; 86593; 86780; 87389; 87635; 87811

== ENCOUNTER 2023-12-24 14:27 | Inpatient (IN) | payer OTHER ==
[2023-12-24 15:11] VITALS: BMI 22.6
[2023-12-24] MEDS ORDERED: BISMUTH SUBSALICYLATE 524 MG/30 ML PO PRN (16:06)
[2023-12-24] MEDS ORDERED: BENZONATATE 200 MG CAPSULE PO PRN (16:06)
[2023-12-24] MEDS ORDERED: IBUPROFEN 400 MG TABLET (FP) PO PRN (16:06)
[2023-12-24] MEDS ORDERED: ACETAMINOPHEN 325 MG TABLET (FP) PO PRN (16:06)
[2023-12-24] MEDS ORDERED: NALOXONE (NARCAN) HCL 4 MG/0.1 ML SPRAY NS PRN (16:06)
[2023-12-24] MEDS ORDERED: IBUPROFEN 600 MG TABLET (FP) PO PRN (16:06)
[2023-12-24] MEDS ORDERED: MAGNESIUM HYDROX 2400MG/30ML ORAL SUSPENSION 30 ML CUP PO PRN (16:06)
[2023-12-24] MEDS ORDERED: BENZOCAINE/MENTHOL (CHLORASEPTIC ) LOZENGE MM PRN (16:06)
[2023-12-24] MEDS ORDERED: hydrOXYzine PAMOATE 25 MG CAPSULE (FP) PO PRN (16:06)
[2023-12-24] MEDS ORDERED: POLYETHYLENE GLYCOL (HEALTHYLAX) 3350 17 GM PACKET PO PRN (16:06)
[2023-12-24] MEDS ORDERED: ONDANSETRON *ODT* 4 MG TABLET SL PRN (16:06)
[2023-12-24] MEDS ORDERED: METHOCARBAMOL 500 MG TABLET PO PRN (16:06)
[2023-12-24] MEDS ORDERED: DICYCLOMINE HCL 10 MG CAPSULE PO PRN (16:06)
[2023-12-24] MEDS ORDERED: guaiFENesin 600 MG TABLET.ER (FP) PO PRN (16:06)
[2023-12-24] MEDS ORDERED: LOPERAMIDE HCL 2 MG CAPSULE PO PRN (16:06)
[2023-12-24] MEDS ORDERED: diazePAM 5 MG TABLET ONE (16:55)
[2023-12-24] MEDS ORDERED: NICOTINE 21 MG/24 HOURS TOPICAL PATCH ONE (16:56)
[2023-12-24] MEDS ORDERED: PRENATAL VITAMINS W/ FOLIC ACID TABLET (FP) PO ONE (16:56)
[2023-12-24] MEDS: NICOTINE 21 MG/24 HOURS TOPICAL PATCH TD SCH (17:03)
[2023-12-24] MEDS: diazePAM 5 MG TABLET PO SCH (17:04)
[2023-12-24] MEDS: PRENATAL VITAMINS W/ FOLIC ACID TABLET (FP) PO SCH (17:04)
[2023-12-24] MEDS: MELATONIN 5 MG TABLETS PO SCH (22:23)
[2023-12-24] MEDS: THIAMINE 100 MG TABLET PO SCH (22:23)
[2023-12-25] MEDS: MAG HYDROX/AL HYDROX/SIMETH 30 ML UNIT-DOSE CUP PO PRN (05:40)
[2023-12-25] MEDS: methaDONE HCL 40 MG DISPERSABLE TABLET PO SCH (09:38)
[2023-12-25] MEDS: methaDONE HCL 10 MG TABLET PO SCH (09:38)
[2023-12-25 12:20] LABS: HEMATOCRIT 29.6 % (35.4-49); HEMOGLOBIN 9.5 GM/dL (11.7-16.9); MCH 25.7 pg (25.7-33.7); MCHC 32.1 g/dl (32.0-35.9); MEAN CELL VOLUME 80.1 fl (80-96); MEAN PLT VOLUME 7.7 fl (7.5-11.1); PLATELET COUNT 328 10^3/uL (134-434); RDW 19.6 % (11.9-15.9); WHITE BLOOD COUNT 5.6 K/mm3 (4.0-10.0)
[2023-12-25 12:31] LABS: CHLORIDE 104 mmol/L (98-107); SODIUM 139 mmol/L (136-145)
[2023-12-25 12:43] LABS: ANION GAP 6 mmol/L (4-13); BLOOD UREA NITROGEN 20.2 mg/dL (7-18); CALCIUM 9.1 mg/dL (8.5-10.1); CO2 29 mmol/L (21-32); GLUCOSE,RANDOM 82 mg/dL (74-106)
[2023-12-25 12:44] LABS: ALBUMIN 3.1 g/dl (3.4-5.0)
[2023-12-25 12:46] LABS: CREATININE 0.9 mg/dL (0.55-1.3); SGPT/ALT 12 U/L (13-61)
[2023-12-25 12:47] LABS: SGOT/AST 19 U/L (15-37)
[2023-12-25 12:48] LABS: BILIRUBIN,TOTAL 0.2 mg/dL (0.2-1); TOT PROT 6.8 g/dl (6.4-8.2)
[2023-12-25 12:49] LABS: ALK PHOS 83 U/L (45-117)
[2023-12-25] MEDS: diazePAM 5 MG TABLET PO PRN (13:17)
[2023-12-25] MEDS: ALBUTEROL SO4 HFA INHALER IH PRN (17:13)
[2023-12-25] MEDS ORDERED: MIRTAZAPINE 15 MG TABLET (FP) ONE (21:26)
[2023-12-25] MEDS: MIRTAZAPINE 30 MG TABLET PO SCH (22:25)
[2023-12-25] MEDS: traZODone HCL 100 MG TABLET (FP) PO SCH (22:26)
[2023-12-25] MEDS: OLANZapine 10 MG TABLET PO SCH (22:26)
[2023-12-26] MEDS: diazePAM 5 MG TABLET PO SCH (06:06)
[2023-12-26] MEDS: LEVOTHYROXINE NA 100 MCG TABLET (FP) PO SCH (06:27)
[2023-12-26] MEDS: FERROUS SO4 325 MG TABLET (FP) PO SCH (09:41)
[2023-12-26] MEDS ORDERED: ALBUTEROL SO4 2.5/IPRATROPIUM 0.5 INH SOL 3 ML VIAL.NEB. NEB PRN (19:56)
[2023-12-26] MEDS: ALBUTEROL SO4 2.5/IPRATROPIUM 0.5 INH SOL 3 ML VIAL.NEB. NEB ONE (20:20)
[2023-12-26] MEDS: BUDESONIDE/FORMETEROL FUMARATE 80/4.5 mcg INHALER IH SCH (23:18)
[2023-12-27 04:13] VITALS: RESP 16
[2023-12-27] MEDS: diazePAM 5 MG TABLET PO SCH (06:08)
[2023-12-27 06:09] VITALS: BP 102/56; PULSE 69; TEMP 97.9
[2023-12-27] MEDS: NALOXONE (NYS OPIOID OVERDOSE PROGRAM) 4 MG/0.1 ML SPRAY NS PRN (08:59)
[2023-12-28] MEDS ORDERED: diazePAM 5 MG TABLET PO ONE (06:00)
== END 2023-12-27 09:08 | disposition home or self-care (01) | DRG 897 ==
LOC: YASAS 14:27 → Y3N 16:22
PROVIDERS: ADMIT Allergy & Immunology; ATTEND Surgery
PROC: HZ2ZZZZ Detoxification Services for Substance Abuse Treatment (ICD-10-PCS; principal; 2023-12-24)
DX: F10.230 Alcohol dependence with withdrawal, uncomplicated (principal); F11.20 Opioid dependence, uncomplicated; F14.10 Cocaine abuse, uncomplicated; F17.210 Nicotine dependence, cigarettes, uncomplicated; F31.9 Bipolar disorder, unspecified; F20.9 Schizophrenia, unspecified; J45.909 Unspecified asthma, uncomplicated; E03.9 Hypothyroidism, unspecified; K21.9 Gastro-esophageal reflux disease without esophagitis; Z86.19 Personal history of other infectious and parasitic diseases; Z85.850 Personal history of malignant neoplasm of thyroid
CPT/HCPCS: 36415; 80053; 80305; 80307; 85027; 86593; 86780; 93005; 93010; 94640